=== PATIENT | female | born 1970 | race Caucasian/White ===

== ENCOUNTER 2018-06-25 16:52 | Inpatient (IN) ==
[2018-06-29] MEDS ORDERED: Acetaminophen 325 MG TABLET PO PRN (00:01)
[2018-06-29] MEDS: Furosemide 20 MG TABLET PO SCH ×2 (06:41→15:55)
[2018-06-29] MEDS: FLUoxetine 20 MG CAPSULE PO SCH (09:11)
[2018-06-29] MEDS: *HR* OxyCODONE Immed Rel 15 MG TABLET PO SCH ×3 (09:11→20:19)
[2018-06-29] MEDS: Cyanocobalamin (B-12) 1,000 MCG TABLET PO SCH (09:11)
[2018-06-29] MEDS: *HR* Metformin 500 MG TABLET PO SCH ×2 (09:12→15:53)
[2018-06-29] MEDS: Loratadine 10 MG TABLET PO SCH (09:12)
[2018-06-29] MEDS: Insulin LISPRO 300 UNITS/3 ML VIAL SQ SCH ×3 (09:12→16:14)
[2018-06-29] MEDS: *HR* Rivaroxaban 10 MG TABLET PO SCH (09:12)
[2018-06-29] MEDS: Pregabalin 75 MG CAPSULE PO SCH ×3 (09:12→20:19)
[2018-06-29] MEDS: Diltiazem CD (24hr) 240 MG CAPSULE PO SCH ×2 (09:13→20:19)
[2018-06-29] MEDS: Dulaglutide [Trulicity] 0.75 MG SQ SCH (09:15)
[2018-06-29] MEDS: Insulin DETEMIR 100 UNIT/ML X5UNITS SQ SCH ×2 (10:11→20:26)
--- NOTE | 2018-06-29 19:26 | Internal Med History&Physical ---
Date of Encounter: 06/29/18 Time of Encounter: 19:00 Assessment and Plan (1) Hematoma of right lower extremity Current visit: No Status: Acute Now status post debridement. Continue wound VAC Qualifiers: Encounter type: subsequent encounter Qualified Code(s): S80.11XD - Contusion of right lower leg, subsequent encounter (2) Anemia Current visit: Yes Status: Acute Order anemia testing in a.m. Qualifiers: Anemia type: unspecified type Qualified Code(s): D64.9 - Anemia, unspecified (3) Hypertension Current visit: Yes Status: Chronic Continue Cozaar, Lasix, and diltiazem. Qualifiers: Hypertension type: essential hypertension Qualified Code(s): I10 - Essential (primary) hypertension (4) Lower extremity edema Current visit: No Status: Chronic Continue Lasix. Check BN peptide in a.m. I told her the Lyrica is likely contributing to this. (5) DVT (deep venous thrombosis) Current visit: No Status: Acute Continue Xarelto Qualifiers: Affected thrombotic vein of extremity: unspecified vein of extremity Chronicity: chronic Laterality: bilateral Qualified Code(s): I82.503 - Chronic embolism and thrombosis of unspecified deep veins of lower extremity, bilateral Internal Medicine - H&P: HPI Chief complaint: Right leg hematoma Admitted From: Hospital to Hospital Transfer Plans for Post Hospital Care: Home History of present illness: Ms. Arredondo is a 48 year old female who was transferred to [facility] swing bed June 28 following a June 21 stay at [facility] after admission for bleeding from a right leg wound. The wound was sustained in May when she fell at a gas station and developed a right lateral calf hematoma and cellulitis. Following treatment at [facility] for one week she was discharged to a [facility] until above-referenced admission at [facility]. During her [facility] stay she was seen by ID who did not recommend further antibiotics. The wound was debrided and wound VAC was placed. She was discharged to [facility] swing bed for ongoing care needs. Past Med Surg Social Fam HX - Past Medical History Medical history: DVT, diabetes, GERD, hyperlipidemia, hypertension Additional medical history: Sleep apnea, Lymphedema, DM neuropathy, Cellulitis, Psychiatric history: anxiety, depression - Past Surgical History Surgical History: appendectomy - Social History Smoking Status: Former smoker Smokeless Tobacco Status: No Alcohol use: none Drug use: none - Family History Mother Family Member Ethnicity: Non- Living Status: Hx Family Cardiac Disorders: Yes Hx Family Respiratory Disorders: No Hx Family Cancer: No Hx Family GI Disorders: No Hx Family Endocrine Disorder: No Hx Family Neuromuscular Disorders: No Hx Family Neurologic Disorders: No Hx Family HEENT Disorders: No Hx Family Autoimmune Disorders: No Father Adopted: No Living Status: Hx Family Cardiac Disorders: Yes Hx Family Respiratory Disorders: Yes Hx Family Cancer: No Hx Family GI Disorders: No Hx Family Endocrine Disorder: Yes Hx Family Neuromuscular Disorders: No Hx Family Neurologic Disorders: No Hx Family HEENT Disorders: No Hx Family Autoimmune Disorders: No Internal Medicine - H&P: Meds Diltiazem CD (24hr) [Cardizem CD] 240 mg PO BID 07/31/15 [History] hydrOXYzine pamoate [HydrOXYzine Pamoate] 25 - 50 mg PO Q6H PRN 07/31/15 [ History] Cyanocobalamin (Vitamin B-12) [Vitamin B12] 2,500 mcg PO DAILY 03/11/17 [History ] Ferrous Sulfate 325 mg PO BIDWM 03/11/17 [History] Furosemide [Lasix] 40 mg PO BID 03/11/17 [History] Insulin Glargine,Hum.rec.anlog [Toujeo Solostar] 65 unit SQ BID 03/11/17 [ History] Melatonin 5 mg PO HS 03/11/17 [History] Metformin HCl [Fortamet] 1,000 mg PO BID 03/11/17 [History] Methocarbamol [Robaxin] 750 mg PO HS 03/11/17 [History] Dulaglutide [Trulicity] 0.75 mg SQ QWEEK 03/10/18 [History] Montelukast [Singulair] 10 mg PO HS 03/10/18 [History] Oxybutynin [Ditropan] 5 mg PO BID 03/10/18 [History] Rivaroxaban [Xarelto] 10 mg PO DAILY #30 tablet 03/10/18 [Rx] Atorvastatin [Lipitor] 40 mg PO HS 06/21/18 [History] Cetirizine HCl [All Day Allergy] 10 mg PO DAILY 06/21/18 [History] FLUoxetine HCl [Prozac] 40 mg PO DAILY 06/21/18 [History] Insulin LISPRO [HumaLOG] 50 units SQ TIDWM 06/21/18 [History] Losartan Potassium [Cozaar] 50 mg PO DAILY 06/21/18 [History] Omeprazole [PriLOSEC] 40 mg PO DAILY 06/21/18 [History] Pregabalin [Lyrica] 150 mg PO TID 06/21/18 [History] Promethazine [Phenergan] 25 mg PO Q8H PRN 06/21/18 [History] Venlafaxine HCl [Venlafaxine HCl ER] 75 mg PO Q48H 06/21/18 [History] Acetaminophen [Tylenol] 650 mg PO Q6HR PRN tablet 06/28/18 [Rx] DiphenhydraMINE [Benadryl] 25 mg PO Q6HR PRN capsule 06/28/18 [Rx] Oxycodone HCl 15 mg PO TID 2 Days #6 tablet 06/28/18 [Rx] 3 Allergy/AdvReac Type Severity Reaction Status Date / Time Penicillins Allergy Intermediate Rash Verified 03/10/18 13:13 pioglitazone [From Actos] Allergy Intermediate See Verified 03/10/18 13:13 Comments sitagliptin [From Januvia] Allergy Intermediate See Verified 03/10/18 13:13 Comments Sulfa (Sulfonamide Allergy Intermediate Hives Verified 03/10/18 13:13 Antibiotics) nabumetone Allergy Muscle Pain Verified 03/10/18 13:13 sulfamethoxazole Allergy Rash Verified 03/10/18 13:13 [From Bactrim] trimethoprim [From Bactrim] Allergy Rash Verified 03/10/18 13:13 All Systems PM: A 10-system review of systems was performed and is negative for pertinent findings except as documented above in the HPI. Review of systems: Gen.: She stated her weight has fluctuated significantly due to varying fluid retention Cardiovascular: She has history of hypertension but denies AK heart failure or angina. 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 Respiratory: She smoked from age [age]. She denies chronic lung disease. She has "allergies". GI: She denies disorders of liver gallbladder or exocrine pancreas. She has GERD. : She has overactive bladder. She denies chronic kidney disease or other kidney or bladder disorders. Neurologic: She denies large distribution strokes or seizures. She has diabetic peripheral neuropathy. Endocrine: She was diagnosed with DM 2 in 1991. She has hyperlipidemia but denies thyroid disease. Hematology/oncology: She has anemia with history of B12 deficiency. She is presently on B12 and iron supplementation. She denies internal malignancies. Psychiatric: She has anxiety and depression but denies other mental health issues. Mus[place] skeletal: She has DJD but denies gout or other bone joint or muscle disorders. - Constitutional Vitals: Temp Pulse Resp BP Pulse Ox 98.9 F 74 16 128/80 98 06/29/18 18:52 06/29/18 18:52 06/29/18 18:52 06/29/18 18:52 06/29/18 18:52 Exam: Gen.: She is a well-developed morbidly obese female in bed who appears in no acute distress HEENT: Head is atraumatic and normocephalic. Eyes: EOMI. There is no scleral icterus. Mouth: Mucosa is moist. Neck: Supple and nontender. There is no thyromegaly or adenopathy noted. Heart: Regular without murmurs gallops or ectopics Lungs: No wheezes or crackles are heard. Abdomen: She has a large abdomen. It is nontender to palpation. Extremities: She has 3-4+ edema of the dorsum of feet and legs. She has chronic lymphedema with dermal thickening and nodularity bilaterally. Wound VAC is in place in the right lateral calf area. Dorsalis pedis and posttibial pulses are nonpalpable. Neurologic: Mental status: She is talkative and a good historian. Cranial nerves: Smile is symmetric. Forehead wrinkles bilaterally. Tongue protrudes midline. EOMI. Motor: There is no pronator drift. Cerebellar: Finger to nose is intact bilaterally. Skin: Warm and dry
[2018-06-29] MEDS: Melatonin 3 MG TABLET PO SCH (20:19)
[2018-06-29] MEDS: Methocarbamol 500 MG TABLET PO SCH (20:26)
[2018-06-30 04:53] LABS: Basophils % 0.4 %; Eosinophils # 0.2 K/mcL (0.0-0.6); Eosinophils % 1.5 %; Hematocrit 27.5 % (35.3-44.9); Hemoglobin 8.8 g/dL (11.5-15.4); Immature Granulocytes % 1.1 % (0-4); Lymphocytes # 1.1 K/mcL (0.6-4.6); Lymphocytes % 11.5 %; Mean Corpuscular Hemoglobin 30.7 pg (28.0-33.3); Mean Corpuscular Volume 95.8 fL (83.0-100.0); Monocytes # 0.9 K/mcL (0.0-1.3); Monocytes % 8.9 %; Neutrophils # 7.5 K/mcL (1.6-8.9); Platelet Count 225 K/mcL (140-400); Red Blood Count 2.87 M/mcL (3.82-4.97); Red Cell Distribution Width 15.4 % (11.5-14.5); Segmented Neutrophils % 76.6 %
[2018-06-30 05:58] LABS: Potassium 4.1 mEq/L (3.5-5.1); Sodium 139 mEq/L (136-145)
[2018-06-30 05:59] LABS: BUN/Creatinine Ratio 20 (6-26); Blood Urea Nitrogen 19 mg/dL (6-20); Calcium 9.1 mg/dL (8.6-10.3); Carbon Dioxide 32 mEq/L (23-29); Chloride 100 mEq/L (98-107); Glucose 114 mg/dL (70-105); Osmolality,Calculated 291 (280-300); eGFR For Non-African Americans > 60 (> 60)
[2018-06-30] MEDS: FLUoxetine 20 MG CAPSULE PO SCH (07:48)
[2018-06-30] MEDS: *HR* OxyCODONE Immed Rel 15 MG TABLET PO SCH ×3 (07:49→19:58)
[2018-06-30] MEDS: Cyanocobalamin (B-12) 1,000 MCG TABLET PO SCH (07:49)
[2018-06-30] MEDS: *HR* Metformin 500 MG TABLET PO SCH ×2 (07:49→15:50)
[2018-06-30] MEDS: Furosemide 20 MG TABLET PO SCH ×2 (07:50→15:49)
[2018-06-30] MEDS: Pregabalin 75 MG CAPSULE PO SCH ×3 (07:50→19:57)
[2018-06-30] MEDS: Loratadine 10 MG TABLET PO SCH (07:50)
[2018-06-30] MEDS: Venlafaxine XR (24 HR) 37.5 MG CAP.ER.24H PO SCH (07:50)
[2018-06-30] MEDS: Insulin LISPRO 300 UNITS/3 ML VIAL SQ SCH ×3 (07:51→17:29)
[2018-06-30] MEDS: Diltiazem CD (24hr) 240 MG CAPSULE PO SCH ×2 (07:51→19:57)
[2018-06-30] MEDS: *HR* Rivaroxaban 10 MG TABLET PO SCH (07:51)
[2018-06-30] MEDS: Insulin DETEMIR 100 UNIT/ML X5UNITS SQ SCH ×2 (08:33→21:21)
[2018-06-30 09:49] LABS: % Iron Saturation 9 % (15-50); Iron 22 mcg/dL (50-170); Transferrin 180 mg/dL (203-362)
[2018-06-30 10:06] LABS: Ferritin 195 ng/mL (10-120)
[2018-06-30 10:11] LABS: Folate 7.7 ng/mL (3.0-16.0)
--- NOTE | 2018-06-30 16:45 | Internal Med Progress Note ---
Date of Encounter: 06/30/18 Time of Encounter: 16:38 - Assessment and plan (1) Hematoma of right lower extremity Current Visit: No Status: Acute Assessment and plan: June 30. Continue wound VAC and follow-up at [facility] wound clinic Qualifiers: Encounter type: subsequent encounter Qualified Code(s): S80.11XD - Contusion of right lower leg, subsequent encounter (2) Anemia Current Visit: Yes Status: Acute Assessment and plan: June 30. Anemia testing showed iron 22, transferrin saturation 9%, transferrin 180, ferritin 195, B12 1163, and folate 7.7. Start ferrous sulfate with ascorbic acid in a.m. Qualifiers: Anemia type: unspecified type Qualified Code(s): D64.9 - Anemia, unspecified (3) Hypertension Current Visit: Yes Status: Chronic Assessment and plan: June 30. Continue Cozaar, Lasix, and diltiazem. Qualifiers: Hypertension type: essential hypertension Qualified Code(s): I10 - Essential (primary) hypertension (4) Lower extremity edema Current Visit: No Status: Chronic Assessment and plan: June 30. BN peptide normal. I told her Lyrica was likely contributing to this. She has been on present dose for several months and did not seem interested in reducing at this time. Continue Lasix. (5) DVT (deep venous thrombosis) Current Visit: No Status: Acute Assessment and plan: June 30. Continue Xarelto Qualifiers: Affected thrombotic vein of extremity: unspecified vein of extremity Chronicity: chronic Laterality: bilateral Qualified Code(s): I82.503 - Chronic embolism and thrombosis of unspecified deep veins of lower extremity, bilateral - Subjective Interval history: June 30. She has no new complaints. - Constitutional Vitals: Temp Pulse Resp BP Pulse Ox 98.1 F 72 16 113/65 93 06/30/18 06:42 06/30/18 06:42 06/30/18 06:42 06/30/18 06:42 06/30/18 06:42 Exam: She is resting comfortably in bed and appears in no acute distress. She is not dyspneic. Her affect is bright and cheerful. I reviewed her medications and lab results. Internal Medicine: Result - Labs CBC & Chem 7: 06/30/18 04:24 06/30/18 04:24 Labs: Short CBC 06/30/18 Range/Units 04:24 WBC 9.7 (4.3-11.1) K/mcL Hgb 8.8 L (11.5-15.4) g/dL Hct 27.5 L (35.3-44.9) % Plt Count 225 (140-400) K/mcL Neutrophils # 7.5 (1.6-8.9) K/mcL BMP 06/30/18 04:24 Sodium 139 Potassium 4.1 Chloride 100 Carbon Dioxide 32 H BUN 19 Creatinine 0.94 Glucose 114 H Calcium 9.1 Consult Discharge Plan - Plan Referrals: Job Sage DO [Primary Care Provider] - 1 week
[2018-06-30] MEDS: Methocarbamol 500 MG TABLET PO SCH (19:57)
[2018-06-30] MEDS: Melatonin 3 MG TABLET PO SCH (19:57)
[2018-07-01] MEDS: Furosemide 20 MG TABLET PO SCH ×2 (06:26→16:19)
[2018-07-01] MEDS: *HR* Rivaroxaban 10 MG TABLET PO SCH (07:55)
[2018-07-01] MEDS: Diltiazem CD (24hr) 240 MG CAPSULE PO SCH ×2 (07:55→20:10)
[2018-07-01] MEDS: Loratadine 10 MG TABLET PO SCH (07:56)
[2018-07-01] MEDS: *HR* Metformin 500 MG TABLET PO SCH ×2 (07:56→16:19)
[2018-07-01] MEDS: Cyanocobalamin (B-12) 1,000 MCG TABLET PO SCH (07:56)
[2018-07-01] MEDS: *HR* OxyCODONE Immed Rel 15 MG TABLET PO SCH ×3 (07:56→20:11)
[2018-07-01] MEDS: Pregabalin 75 MG CAPSULE PO SCH ×3 (07:56→20:10)
[2018-07-01] MEDS: FLUoxetine 20 MG CAPSULE PO SCH (07:56)
[2018-07-01] MEDS: Insulin LISPRO 300 UNITS/3 ML VIAL SQ SCH ×3 (07:58→16:20)
[2018-07-01] MEDS: Insulin DETEMIR 100 UNIT/ML X5UNITS SQ SCH ×2 (08:25→20:15)
[2018-07-01] MEDS: Methocarbamol 500 MG TABLET PO SCH (20:09)
[2018-07-01] MEDS: Melatonin 3 MG TABLET PO SCH (20:10)
[2018-07-02] MEDS: *HR* OxyCODONE Immed Rel 15 MG TABLET PO SCH ×3 (07:48→23:10)
[2018-07-02] MEDS: Pregabalin 75 MG CAPSULE PO SCH ×3 (07:49→23:19)
[2018-07-02] MEDS: Diltiazem CD (24hr) 240 MG CAPSULE PO SCH ×2 (07:49→23:09)
[2018-07-02] MEDS: Venlafaxine XR (24 HR) 37.5 MG CAP.ER.24H PO SCH (07:49)
[2018-07-02] MEDS: Loratadine 10 MG TABLET PO SCH (07:49)
[2018-07-02] MEDS: FLUoxetine 20 MG CAPSULE PO SCH (07:50)
[2018-07-02] MEDS: Furosemide 20 MG TABLET PO SCH ×2 (07:50→16:16)
[2018-07-02] MEDS: *HR* Rivaroxaban 10 MG TABLET PO SCH (07:50)
[2018-07-02] MEDS: Cyanocobalamin (B-12) 1,000 MCG TABLET PO SCH (07:50)
[2018-07-02] MEDS: *HR* Metformin 500 MG TABLET PO SCH ×2 (07:50→16:17)
[2018-07-02] MEDS: Insulin LISPRO 300 UNITS/3 ML VIAL SQ SCH ×3 (07:53→16:42)
[2018-07-02] MEDS: Insulin DETEMIR 100 UNIT/ML X5UNITS SQ SCH ×2 (08:36→23:12)
--- NOTE | 2018-07-02 12:33 | Internal Med Progress Note ---
Date of Encounter: 07/02/18 Time of Encounter: 12:25 - Assessment and plan (1) Hematoma of right lower extremity Current Visit: No Status: Acute Assessment and plan: June 30. Continue wound VAC and follow-up at [facility] wound clinic Qualifiers: Encounter type: subsequent encounter Qualified Code(s): S80.11XD - Contusion of right lower leg, subsequent encounter (2) Anemia Current Visit: Yes Status: Acute Assessment and plan: June 30. Anemia testing showed iron 22, transferrin saturation 9%, transferrin 180, ferritin 195, B12 1163, and folate 7.7. Start ferrous sulfate with ascorbic acid in a.m. Qualifiers: Anemia type: unspecified type Qualified Code(s): D64.9 - Anemia, unspecified (3) Hypertension Current Visit: Yes Status: Chronic Assessment and plan: June 30. Continue Cozaar, Lasix, and diltiazem. Qualifiers: Hypertension type: essential hypertension Qualified Code(s): I10 - Essential (primary) hypertension (4) Lower extremity edema Current Visit: No Status: Chronic Assessment and plan: June 30. BN peptide normal. I told her Lyrica was likely contributing to this. She has been on present dose for several months and did not seem interested in reducing at this time. Continue Lasix. (5) DVT (deep venous thrombosis) Current Visit: No Status: Acute Assessment and plan: June 30. Continue Xarelto Qualifiers: Affected thrombotic vein of extremity: unspecified vein of extremity Chronicity: chronic Laterality: bilateral Qualified Code(s): I82.503 - Chronic embolism and thrombosis of unspecified deep veins of lower extremity, bilateral - Subjective Interval history: June 30. She has no new complaints. July 02. She has no new complaints. - Constitutional Vitals: Temp Pulse Resp BP Pulse Ox 98.3 F 71 19 107/54 98 07/02/18 06:45 07/02/18 06:45 07/02/18 06:45 07/02/18 06:45 07/02/18 06:45 Exam: She is resting comfortably in a chair at bedside and appears in no acute distress. Her affect is bright and cheerful. I reviewed her medications and lab results. Internal Medicine: Result - Labs CBC & Chem 7: 06/30/18 04:24 06/30/18 04:24 Consult Discharge Plan - Plan Referrals: Job Sage DO [Primary Care Provider] - 1 week
[2018-07-02] MEDS: Methocarbamol 500 MG TABLET PO SCH (23:06)
[2018-07-02] MEDS: hydrOXYzine pamoate 25 MG CAPSULE PO PRN (23:06)
[2018-07-02] MEDS: Melatonin 3 MG TABLET PO SCH (23:08)
[2018-07-03] MEDS: Ascorbic Acid 500 MG TABLET PO SCH (06:17)
[2018-07-03] MEDS: Cyanocobalamin (B-12) 1,000 MCG TABLET PO SCH (10:31)
[2018-07-03] MEDS: Loratadine 10 MG TABLET PO SCH (10:32)
[2018-07-03] MEDS: *HR* Rivaroxaban 10 MG TABLET PO SCH (10:32)
[2018-07-03] MEDS: Pregabalin 75 MG CAPSULE PO SCH ×3 (10:32→21:14)
[2018-07-03] MEDS: *HR* Metformin 500 MG TABLET PO SCH ×2 (10:32→17:12)
[2018-07-03] MEDS: FLUoxetine 20 MG CAPSULE PO SCH (10:33)
[2018-07-03] MEDS: *HR* OxyCODONE Immed Rel 15 MG TABLET PO SCH ×3 (10:33→21:13)
[2018-07-03] MEDS: Insulin DETEMIR 100 UNIT/ML X5UNITS SQ SCH ×2 (10:34→21:14)
[2018-07-03] MEDS: Insulin LISPRO 300 UNITS/3 ML VIAL SQ SCH ×3 (12:34→17:13)
[2018-07-03] MEDS: Diltiazem CD (24hr) 240 MG CAPSULE PO SCH ×2 (13:57→21:13)
[2018-07-03] MEDS: Furosemide 20 MG TABLET PO SCH ×2 (13:58→17:12)
[2018-07-03] MEDS: Methocarbamol 500 MG TABLET PO SCH (21:13)
[2018-07-03] MEDS: Melatonin 3 MG TABLET PO SCH (21:14)
[2018-07-04] MEDS: Ascorbic Acid 500 MG TABLET PO SCH (06:23)
[2018-07-04] MEDS: Insulin DETEMIR 100 UNIT/ML X5UNITS SQ SCH ×2 (09:31→21:20)
[2018-07-04] MEDS: *HR* OxyCODONE Immed Rel 15 MG TABLET PO SCH ×3 (09:32→21:11)
[2018-07-04] MEDS: Cyanocobalamin (B-12) 1,000 MCG TABLET PO SCH (09:32)
[2018-07-04] MEDS: *HR* Rivaroxaban 10 MG TABLET PO SCH (09:32)
[2018-07-04] MEDS: *HR* Metformin 500 MG TABLET PO SCH ×2 (09:32→17:53)
[2018-07-04] MEDS: Pregabalin 75 MG CAPSULE PO SCH ×3 (09:32→21:12)
[2018-07-04] MEDS: Loratadine 10 MG TABLET PO SCH (09:33)
[2018-07-04] MEDS: FLUoxetine 20 MG CAPSULE PO SCH (09:33)
[2018-07-04] MEDS: Venlafaxine XR (24 HR) 37.5 MG CAP.ER.24H PO SCH (09:33)
[2018-07-04] MEDS: Furosemide 20 MG TABLET PO SCH ×2 (09:33→17:53)
[2018-07-04] MEDS: Insulin LISPRO 300 UNITS/3 ML VIAL SQ SCH ×3 (09:34→17:55)
[2018-07-04] MEDS: Diltiazem CD (24hr) 240 MG CAPSULE PO SCH ×2 (11:02→21:11)
--- NOTE | 2018-07-04 12:07 | Internal Med Progress Note ---
Date of Encounter: 07/04/18 Time of Encounter: 11:40 - Assessment and plan (1) Hematoma of right lower extremity Current Visit: No Status: Acute Assessment and plan: June 30. Continue wound VAC and follow-up at [facility] wound clinic Qualifiers: Encounter type: subsequent encounter Qualified Code(s): S80.11XD - Contusion of right lower leg, subsequent encounter (2) Anemia Current Visit: Yes Status: Acute Assessment and plan: June 30. Anemia testing showed iron 22, transferrin saturation 9%, transferrin 180, ferritin 195, B12 1163, and folate 7.7. Start ferrous sulfate with ascorbic acid in a.m. Qualifiers: Anemia type: unspecified type Qualified Code(s): D64.9 - Anemia, unspecified (3) Hypertension Current Visit: Yes Status: Chronic Assessment and plan: June 30. Continue Cozaar, Lasix, and diltiazem. Qualifiers: Hypertension type: essential hypertension Qualified Code(s): I10 - Essential (primary) hypertension (4) Lower extremity edema Current Visit: No Status: Chronic Assessment and plan: June 30. BN peptide normal. I told her Lyrica was likely contributing to this. She has been on present dose for several months and did not seem interested in reducing at this time. Continue Lasix. July 04. I reminded her again that the edema is likely due at least in part to Lyrica. She declined decreasing the dose at this time. (5) DVT (deep venous thrombosis) Current Visit: No Status: Acute Assessment and plan: June 30. Continue Xarelto Qualifiers: Affected thrombotic vein of extremity: unspecified vein of extremity Chronicity: chronic Laterality: bilateral Qualified Code(s): I82.503 - Chronic embolism and thrombosis of unspecified deep veins of lower extremity, bilateral - Subjective Interval history: June 30. She has no new complaints. July 02. She has no new complaints. July 04. She has no new complaints. - Constitutional Vitals: Temp Pulse Resp BP Pulse Ox 98 F 63 14 113/66 98 07/04/18 06:42 07/04/18 06:42 07/04/18 06:42 07/04/18 06:42 07/04/18 06:42 Exam: She is resting comfortably in bed and appears in no acute distress. The wound VAC was detached and the right lateral calf ulcerative area shows good granulation bed with minimal exudate present. Edema is minimally changed. I reviewed her medications and lab results. Internal Medicine: Result - Labs CBC & Chem 7: 06/30/18 04:24 06/30/18 04:24 Consult Discharge Plan - Plan Referrals: Job Sage DO [Primary Care Provider] - 1 week
[2018-07-04] MEDS: Methocarbamol 500 MG TABLET PO SCH (21:11)
[2018-07-04] MEDS: Melatonin 3 MG TABLET PO SCH (21:12)
[2018-07-05] MEDS: Ascorbic Acid 500 MG TABLET PO SCH (06:51)
[2018-07-05] MEDS: Cyanocobalamin (B-12) 1,000 MCG TABLET PO SCH (07:55)
[2018-07-05] MEDS: *HR* Metformin 500 MG TABLET PO SCH ×2 (07:55→17:05)
[2018-07-05] MEDS: FLUoxetine 20 MG CAPSULE PO SCH (07:55)
[2018-07-05] MEDS: Furosemide 20 MG TABLET PO SCH ×2 (07:56→15:22)
[2018-07-05] MEDS: *HR* OxyCODONE Immed Rel 15 MG TABLET PO SCH ×3 (07:56→21:14)
[2018-07-05] MEDS: Loratadine 10 MG TABLET PO SCH (07:56)
[2018-07-05] MEDS: *HR* Rivaroxaban 10 MG TABLET PO SCH (07:56)
[2018-07-05] MEDS: Pregabalin 75 MG CAPSULE PO SCH ×3 (07:57→21:15)
[2018-07-05] MEDS: Insulin DETEMIR 100 UNIT/ML X5UNITS SQ SCH ×2 (07:57→21:32)
[2018-07-05] MEDS: Insulin LISPRO 300 UNITS/3 ML VIAL SQ SCH ×3 (08:00→16:31)
[2018-07-05] MEDS: Diltiazem CD (24hr) 240 MG CAPSULE PO SCH ×2 (10:00→21:16)
[2018-07-05] MEDS: Methocarbamol 500 MG TABLET PO SCH (21:15)
[2018-07-05] MEDS: Melatonin 3 MG TABLET PO SCH (21:16)
[2018-07-06] MEDS: Ascorbic Acid 500 MG TABLET PO SCH (06:00)
[2018-07-06] MEDS: Insulin LISPRO 300 UNITS/3 ML VIAL SQ SCH ×3 (08:00→16:46)
[2018-07-06] MEDS: Diltiazem CD (24hr) 240 MG CAPSULE PO SCH ×2 (08:33→21:21)
[2018-07-06] MEDS: FLUoxetine 20 MG CAPSULE PO SCH (08:53)
[2018-07-06] MEDS: Furosemide 20 MG TABLET PO SCH ×2 (08:53→16:01)
[2018-07-06] MEDS: Pregabalin 75 MG CAPSULE PO SCH ×3 (08:53→21:21)
[2018-07-06] MEDS: Venlafaxine XR (24 HR) 37.5 MG CAP.ER.24H PO SCH (08:53)
[2018-07-06] MEDS: Loratadine 10 MG TABLET PO SCH (08:53)
[2018-07-06] MEDS: *HR* OxyCODONE Immed Rel 15 MG TABLET PO SCH ×3 (08:54→21:21)
[2018-07-06] MEDS: Cyanocobalamin (B-12) 1,000 MCG TABLET PO SCH (08:54)
[2018-07-06] MEDS: *HR* Metformin 500 MG TABLET PO SCH ×2 (08:54→16:00)
[2018-07-06] MEDS: *HR* Rivaroxaban 10 MG TABLET PO SCH (08:54)
[2018-07-06] MEDS: Dulaglutide [Trulicity] 0.75 MG SQ SCH (08:55)
[2018-07-06] MEDS: Insulin DETEMIR 100 UNIT/ML X5UNITS SQ SCH ×2 (12:15→21:28)
[2018-07-06] MEDS ORDERED: MOM Conc 10 ML UD.LIQ PO PRN (14:51)
[2018-07-06] MEDS: Melatonin 3 MG TABLET PO SCH (21:22)
[2018-07-06] MEDS: Methocarbamol 500 MG TABLET PO SCH (21:22)
[2018-07-07] MEDS: Furosemide 20 MG TABLET PO SCH ×2 (06:02→16:49)
[2018-07-07] MEDS: Ascorbic Acid 500 MG TABLET PO SCH (06:02)
[2018-07-07] MEDS: Loratadine 10 MG TABLET PO SCH (09:33)
[2018-07-07] MEDS: Diltiazem CD (24hr) 240 MG CAPSULE PO SCH ×2 (09:33→20:31)
[2018-07-07] MEDS: *HR* Metformin 500 MG TABLET PO SCH ×2 (09:34→16:49)
[2018-07-07] MEDS: FLUoxetine 20 MG CAPSULE PO SCH (09:34)
[2018-07-07] MEDS: Cyanocobalamin (B-12) 1,000 MCG TABLET PO SCH (09:34)
[2018-07-07] MEDS: Pregabalin 75 MG CAPSULE PO SCH ×3 (09:35→20:31)
[2018-07-07] MEDS: *HR* OxyCODONE Immed Rel 15 MG TABLET PO SCH ×3 (09:35→20:30)
[2018-07-07] MEDS: *HR* Rivaroxaban 10 MG TABLET PO SCH (09:35)
[2018-07-07] MEDS: Insulin LISPRO 300 UNITS/3 ML VIAL SQ SCH ×3 (09:36→16:47)
[2018-07-07] MEDS: Insulin DETEMIR 100 UNIT/ML X5UNITS SQ SCH ×2 (10:02→20:35)
--- NOTE | 2018-07-07 15:58 | Internal Med Progress Note ---
Date of Encounter: 07/07/18 Time of Encounter: 15:45 - Assessment and plan (1) Hematoma of right lower extremity Current Visit: No Status: Acute Assessment and plan: June 30. Continue wound VAC and follow-up at [facility] wound clinic Qualifiers: Encounter type: subsequent encounter Qualified Code(s): S80.11XD - Contusion of right lower leg, subsequent encounter (2) Anemia Current Visit: Yes Status: Acute Assessment and plan: June 30. Anemia testing showed iron 22, transferrin saturation 9%, transferrin 180, ferritin 195, B12 1163, and folate 7.7. Start ferrous sulfate with ascorbic acid in a.m. July 07. Recheck labs in a.m. Qualifiers: Anemia type: unspecified type Qualified Code(s): D64.9 - Anemia, unspecified (3) Hypertension Current Visit: Yes Status: Chronic Assessment and plan: June 30. Continue Cozaar, Lasix, and diltiazem. Qualifiers: Hypertension type: essential hypertension Qualified Code(s): I10 - Essential (primary) hypertension (4) Lower extremity edema Current Visit: No Status: Chronic Assessment and plan: June 30. BN peptide normal. I told her Lyrica was likely contributing to this. She has been on present dose for several months and did not seem interested in reducing at this time. Continue Lasix. July 04. I reminded her again that the edema is likely due at least in part to Lyrica. She declined decreasing the dose at this time. (5) DVT (deep venous thrombosis) Current Visit: No Status: Acute Assessment and plan: June 30. Continue Xarelto Qualifiers: Affected thrombotic vein of extremity: unspecified vein of extremity Chronicity: chronic Laterality: bilateral Qualified Code(s): I82.503 - Chronic embolism and thrombosis of unspecified deep veins of lower extremity, bilateral - Subjective Interval history: June 30. She has no new complaints. July 02. She has no new complaints. July 04. She has no new complaints. July 07. She has no new complaints. - Constitutional Vitals: Temp Pulse Resp BP Pulse Ox 98.3 F 69 16 121/63 93 07/07/18 15:33 07/07/18 15:33 07/07/18 15:33 07/07/18 15:33 07/07/18 15:33 Exam: She is resting comfortably in bed and appears in no acute distress. The right lateral wound bed shows good granulation tissue with minimal exudate. There is 0 to trace edema the dorsal feet bilaterally. I reviewed her medications and lab results. Internal Medicine: Result - Labs CBC & Chem 7: 06/30/18 04:24 06/30/18 04:24 Consult Discharge Plan - Plan Referrals: Job Sage DO [Primary Care Provider] - 1 week
[2018-07-07] MEDS: Melatonin 3 MG TABLET PO SCH (20:30)
[2018-07-07] MEDS: Methocarbamol 500 MG TABLET PO SCH (20:31)
[2018-07-08 05:13] LABS: Basophils # 0.1 K/mcL (0.0-0.2); Basophils % 0.5 %; Eosinophils # 0.2 K/mcL (0.0-0.6); Eosinophils % 2.3 %; Hemoglobin 9.1 g/dL (11.5-15.4); Immature Granulocytes % 0.8 % (0-4); Lymphocytes # 1.3 K/mcL (0.6-4.6); Lymphocytes % 14.3 %; Mean Corpuscular HGB Conc 31.4 g/dL (31.6-35.5); Mean Corpuscular Hemoglobin 29.9 pg (28.0-33.3); Mean Corpuscular Volume 95.4 fL (83.0-100.0); Mean Platelet Volume 10.6 fL (9.4-12.4); Monocytes # 0.8 K/mcL (0.0-1.3); Monocytes % 8.6 %; Neutrophils # 6.8 K/mcL (1.6-8.9); Platelet Count 226 K/mcL (140-400); Red Blood Count 3.04 M/mcL (3.82-4.97); Red Cell Distribution Width 14.9 % (11.5-14.5); Segmented Neutrophils % 73.5 %
[2018-07-08 05:30] LABS: Alanine Aminotransferase 9 Units/L (7-52); Albumin 3.2 g/dL (3.5-5.7); Albumin/Globulin Ratio 1.1 (1.1-2.2); Alkaline Phosphatase 59 Units/L (34-104); Aspartate Amino Transferase 10 Units/L (13-39); BUN/Creatinine Ratio 20 (6-26); Bilirubin,Total 0.3 mg/dL (0.3-1.0); Blood Urea Nitrogen 15 mg/dL (6-20); Calcium 8.9 mg/dL (8.6-10.3); Carbon Dioxide 33 mEq/L (23-29); Chloride 100 mEq/L (98-107); Globulin 2.9 g/dL (2.4-3.5); Glucose 114 mg/dL (70-105); Osmolality,Calculated 288 (280-300); Potassium 3.6 mEq/L (3.5-5.1); Sodium 138 mEq/L (136-145); Total Protein 6.1 g/dL (6.4-8.9); eGFR For Non-African Americans > 60 (> 60)
[2018-07-08] MEDS: Ascorbic Acid 500 MG TABLET PO SCH (06:43)
[2018-07-08] MEDS: Venlafaxine XR (24 HR) 37.5 MG CAP.ER.24H PO SCH (07:58)
[2018-07-08] MEDS: *HR* Metformin 500 MG TABLET PO SCH ×2 (07:58→17:01)
[2018-07-08] MEDS: Cyanocobalamin (B-12) 1,000 MCG TABLET PO SCH (07:58)
[2018-07-08] MEDS: Furosemide 20 MG TABLET PO SCH ×2 (07:59→17:00)
[2018-07-08] MEDS: *HR* OxyCODONE Immed Rel 15 MG TABLET PO SCH ×3 (07:59→22:48)
[2018-07-08] MEDS: Pregabalin 75 MG CAPSULE PO SCH ×3 (07:59→20:31)
[2018-07-08] MEDS: Diltiazem CD (24hr) 240 MG CAPSULE PO SCH ×2 (08:00→20:31)
[2018-07-08] MEDS: FLUoxetine 20 MG CAPSULE PO SCH (08:00)
[2018-07-08] MEDS: *HR* Rivaroxaban 10 MG TABLET PO SCH (08:00)
[2018-07-08] MEDS: Loratadine 10 MG TABLET PO SCH (08:00)
[2018-07-08] MEDS: Insulin LISPRO 300 UNITS/3 ML VIAL SQ SCH ×3 (08:01→17:01)
[2018-07-08] MEDS: Insulin DETEMIR 100 UNIT/ML X5UNITS SQ SCH ×3 (08:13→21:49)
[2018-07-08] MEDS: Melatonin 3 MG TABLET PO SCH (20:31)
[2018-07-08] MEDS: Methocarbamol 500 MG TABLET PO SCH (20:31)
[2018-07-09] MEDS: Ascorbic Acid 500 MG TABLET PO SCH (06:28)
[2018-07-09] MEDS: Insulin DETEMIR 100 UNIT/ML X5UNITS SQ SCH ×2 (09:28→21:44)
[2018-07-09] MEDS: FLUoxetine 20 MG CAPSULE PO SCH (09:28)
[2018-07-09] MEDS: Insulin LISPRO 300 UNITS/3 ML VIAL SQ SCH ×3 (09:28→17:36)
[2018-07-09] MEDS: Loratadine 10 MG TABLET PO SCH (09:28)
[2018-07-09] MEDS: *HR* Rivaroxaban 10 MG TABLET PO SCH (09:28)
[2018-07-09] MEDS: Furosemide 20 MG TABLET PO SCH ×2 (09:29→17:35)
[2018-07-09] MEDS: *HR* Metformin 500 MG TABLET PO SCH ×2 (09:29→17:35)
[2018-07-09] MEDS: Diltiazem CD (24hr) 240 MG CAPSULE PO SCH ×2 (09:29→21:42)
[2018-07-09] MEDS: Cyanocobalamin (B-12) 1,000 MCG TABLET PO SCH (09:29)
[2018-07-09] MEDS: Pregabalin 75 MG CAPSULE PO SCH ×3 (09:29→21:43)
[2018-07-09] MEDS: *HR* OxyCODONE Immed Rel 15 MG TABLET PO SCH ×3 (09:29→21:41)
--- NOTE | 2018-07-09 14:31 | Internal Med Progress Note ---
Date of Encounter: 07/09/18 Time of Encounter: 14:25 - Assessment and plan (1) Hematoma of right lower extremity Current Visit: No Status: Acute Assessment and plan: June 30. Continue wound VAC and follow-up at [facility] wound clinic July 09. Wound clinic appointment July 15. Qualifiers: Encounter type: subsequent encounter Qualified Code(s): S80.11XD - Contusion of right lower leg, subsequent encounter (2) Anemia Current Visit: Yes Status: Acute Assessment and plan: June 30. Anemia testing showed iron 22, transferrin saturation 9%, transferrin 180, ferritin 195, B12 1163, and folate 7.7. Start ferrous sulfate with ascorbic acid in a.m. July 07. Recheck labs in a.m. July 09. Hemoglobin stable at 9.1. Qualifiers: Anemia type: unspecified type Qualified Code(s): D64.9 - Anemia, unspecified (3) Hypertension Current Visit: Yes Status: Chronic Assessment and plan: June 30. Continue Cozaar, Lasix, and diltiazem. Qualifiers: Hypertension type: essential hypertension Qualified Code(s): I10 - Essential (primary) hypertension (4) Lower extremity edema Current Visit: No Status: Chronic Assessment and plan: June 30. BN peptide normal. I told her Lyrica was likely contributing to this. She has been on present dose for several months and did not seem interested in reducing at this time. Continue Lasix. July 04. I reminded her again that the edema is likely due at least in part to Lyrica. She declined decreasing the dose at this time. (5) DVT (deep venous thrombosis) Current Visit: No Status: Acute Assessment and plan: June 30. Continue Xarelto Qualifiers: Affected thrombotic vein of extremity: unspecified vein of extremity Chronicity: chronic Laterality: bilateral Qualified Code(s): I82.503 - Chronic embolism and thrombosis of unspecified deep veins of lower extremity, bilateral - Subjective Interval history: June 30. She has no new complaints. July 02. She has no new complaints. July 04. She has no new complaints. July 07. She has no new complaints. July 08. She has no new complaints. - Constitutional Vitals: Temp Pulse Resp BP Pulse Ox 97.7 F 83 14 107/58 94 07/09/18 06:52 07/09/18 06:52 07/09/18 06:52 07/09/18 06:52 07/09/18 06:52 Exam: She is sitting in a chair at bedside resting comfortably. Her right lower leg is wrapped in elastic wrap which I did not remove. Her affect is bright and cheerful. I reviewed her medications and lab results. Internal Medicine: Result - Labs CBC & Chem 7: 07/08/18 04:57 07/08/18 04:57 Consult Discharge Plan - Plan Referrals: Job Sage DO [Primary Care Provider] - 1 week
[2018-07-09] MEDS: Methocarbamol 500 MG TABLET PO SCH (21:42)
[2018-07-09] MEDS: Melatonin 3 MG TABLET PO SCH (21:43)
[2018-07-10] MEDS: Ascorbic Acid 500 MG TABLET PO SCH (06:37)
[2018-07-10] MEDS: *HR* Rivaroxaban 10 MG TABLET PO SCH (07:48)
[2018-07-10] MEDS: Loratadine 10 MG TABLET PO SCH (07:48)
[2018-07-10] MEDS: FLUoxetine 20 MG CAPSULE PO SCH (07:48)
[2018-07-10] MEDS: *HR* OxyCODONE Immed Rel 15 MG TABLET PO SCH ×3 (07:48→20:53)
[2018-07-10] MEDS: Diltiazem CD (24hr) 240 MG CAPSULE PO SCH ×2 (07:49→22:05)
[2018-07-10] MEDS: Furosemide 20 MG TABLET PO SCH ×2 (07:49→16:43)
[2018-07-10] MEDS: *HR* Metformin 500 MG TABLET PO SCH ×2 (07:49→16:43)
[2018-07-10] MEDS: Venlafaxine XR (24 HR) 37.5 MG CAP.ER.24H PO SCH (07:49)
[2018-07-10] MEDS: Pregabalin 75 MG CAPSULE PO SCH ×3 (07:49→20:54)
[2018-07-10] MEDS: Cyanocobalamin (B-12) 1,000 MCG TABLET PO SCH (07:50)
[2018-07-10] MEDS: Insulin LISPRO 300 UNITS/3 ML VIAL SQ SCH ×3 (07:52→16:44)
[2018-07-10] MEDS: Insulin DETEMIR 100 UNIT/ML X5UNITS SQ SCH ×2 (08:41→21:19)
[2018-07-10] MEDS: hydrOXYzine pamoate 25 MG CAPSULE PO PRN ×2 (10:35→20:54)
[2018-07-10] MEDS: Melatonin 3 MG TABLET PO SCH (20:52)
[2018-07-10] MEDS: Methocarbamol 500 MG TABLET PO SCH (20:54)
[2018-07-11] MEDS: Ascorbic Acid 500 MG TABLET PO SCH (06:38)
[2018-07-11] MEDS: *HR* OxyCODONE Immed Rel 15 MG TABLET PO SCH ×3 (08:01→21:07)
[2018-07-11] MEDS: hydrOXYzine pamoate 25 MG CAPSULE PO PRN ×2 (08:01→21:07)
[2018-07-11] MEDS: Diltiazem CD (24hr) 240 MG CAPSULE PO SCH ×2 (08:01→21:07)
[2018-07-11] MEDS: Loratadine 10 MG TABLET PO SCH (08:01)
[2018-07-11] MEDS: Furosemide 20 MG TABLET PO SCH ×2 (08:02→16:24)
[2018-07-11] MEDS: *HR* Rivaroxaban 10 MG TABLET PO SCH (08:02)
[2018-07-11] MEDS: Pregabalin 75 MG CAPSULE PO SCH ×3 (08:02→21:07)
[2018-07-11] MEDS: FLUoxetine 20 MG CAPSULE PO SCH (08:03)
[2018-07-11] MEDS: Insulin DETEMIR 100 UNIT/ML X5UNITS SQ SCH ×2 (09:03→21:08)
[2018-07-11] MEDS: Insulin LISPRO 300 UNITS/3 ML VIAL SQ SCH ×3 (10:48→17:30)
[2018-07-11] MEDS: Cyanocobalamin (B-12) 1,000 MCG TABLET PO SCH (10:49)
[2018-07-11] MEDS: *HR* Metformin 500 MG TABLET PO SCH ×2 (10:49→16:23)
[2018-07-11] MEDS: Melatonin 3 MG TABLET PO SCH (21:06)
[2018-07-11] MEDS: Methocarbamol 500 MG TABLET PO SCH (21:06)
[2018-07-12] MEDS: Furosemide 20 MG TABLET PO SCH ×2 (06:09→15:48)
[2018-07-12] MEDS: Ascorbic Acid 500 MG TABLET PO SCH (06:10)
[2018-07-12] MEDS: Cyanocobalamin (B-12) 1,000 MCG TABLET PO SCH (09:20)
[2018-07-12] MEDS: Pregabalin 75 MG CAPSULE PO SCH ×3 (09:22→20:08)
[2018-07-12] MEDS: Venlafaxine XR (24 HR) 37.5 MG CAP.ER.24H PO SCH (09:22)
[2018-07-12] MEDS: *HR* OxyCODONE Immed Rel 15 MG TABLET PO SCH ×3 (09:23→20:09)
[2018-07-12] MEDS: *HR* Metformin 500 MG TABLET PO SCH ×2 (09:23→16:26)
[2018-07-12] MEDS: *HR* Rivaroxaban 10 MG TABLET PO SCH (09:23)
[2018-07-12] MEDS: Diltiazem CD (24hr) 240 MG CAPSULE PO SCH ×2 (09:25→20:08)
[2018-07-12] MEDS: Loratadine 10 MG TABLET PO SCH (09:25)
[2018-07-12] MEDS: FLUoxetine 20 MG CAPSULE PO SCH (09:27)
[2018-07-12] MEDS: Insulin DETEMIR 100 UNIT/ML X5UNITS SQ SCH ×2 (09:51→20:10)
[2018-07-12] MEDS: Insulin LISPRO 300 UNITS/3 ML VIAL SQ SCH ×3 (09:54→16:28)
[2018-07-12] MEDS: hydrOXYzine pamoate 25 MG CAPSULE PO PRN (15:48)
[2018-07-12] MEDS: Methocarbamol 500 MG TABLET PO SCH (20:09)
[2018-07-12] MEDS: Melatonin 3 MG TABLET PO SCH (20:09)
[2018-07-13] MEDS: Ascorbic Acid 500 MG TABLET PO SCH (06:29)
[2018-07-13] MEDS: Loratadine 10 MG TABLET PO SCH (09:00)
[2018-07-13] MEDS: Diltiazem CD (24hr) 240 MG CAPSULE PO SCH ×2 (09:00→20:56)
[2018-07-13] MEDS: FLUoxetine 20 MG CAPSULE PO SCH (09:00)
[2018-07-13] MEDS: *HR* Metformin 500 MG TABLET PO SCH ×2 (09:00→17:25)
[2018-07-13] MEDS: hydrOXYzine pamoate 25 MG CAPSULE PO PRN ×3 (09:01→20:55)
[2018-07-13] MEDS: Cyanocobalamin (B-12) 1,000 MCG TABLET PO SCH (09:01)
[2018-07-13] MEDS: *HR* Rivaroxaban 10 MG TABLET PO SCH (09:01)
[2018-07-13] MEDS: Pregabalin 75 MG CAPSULE PO SCH ×3 (09:01→20:57)
[2018-07-13] MEDS: Furosemide 20 MG TABLET PO SCH ×2 (09:01→17:26)
[2018-07-13] MEDS: Insulin LISPRO 300 UNITS/3 ML VIAL SQ SCH ×3 (09:02→17:26)
[2018-07-13] MEDS: *HR* OxyCODONE Immed Rel 15 MG TABLET PO SCH ×3 (09:02→20:56)
[2018-07-13] MEDS: Dulaglutide [Trulicity] 0.75 MG SQ SCH (09:02)
[2018-07-13] MEDS: Insulin DETEMIR 100 UNIT/ML X5UNITS SQ SCH ×2 (09:52→20:57)
--- NOTE | 2018-07-13 19:12 | Internal Med Progress Note ---
Date of Encounter: 07/13/18 Time of Encounter: 19:05 - Assessment and plan (1) Hematoma of right lower extremity Current Visit: No Status: Acute Assessment and plan: June 30. Continue wound VAC and follow-up at [facility] wound clinic July 09. Wound clinic appointment July 15. Qualifiers: Encounter type: subsequent encounter Qualified Code(s): S80.11XD - Contusion of right lower leg, subsequent encounter (2) Anemia Current Visit: Yes Status: Acute Assessment and plan: June 30. Anemia testing showed iron 22, transferrin saturation 9%, transferrin 180, ferritin 195, B12 1163, and folate 7.7. Start ferrous sulfate with ascorbic acid in a.m. July 07. Recheck labs in a.m. July 09. Hemoglobin stable at 9.1. Qualifiers: Anemia type: unspecified type Qualified Code(s): D64.9 - Anemia, unspecified (3) Hypertension Current Visit: Yes Status: Chronic Assessment and plan: June 30. Continue Cozaar, Lasix, and diltiazem. Qualifiers: Hypertension type: essential hypertension Qualified Code(s): I10 - Essential (primary) hypertension (4) Lower extremity edema Current Visit: No Status: Chronic Assessment and plan: June 30. BN peptide normal. I told her Lyrica was likely contributing to this. She has been on present dose for several months and did not seem interested in reducing at this time. Continue Lasix. July 04. I reminded her again that the edema is likely due at least in part to Lyrica. She declined decreasing the dose at this time. (5) DVT (deep venous thrombosis) Current Visit: No Status: Acute Assessment and plan: June 30. Continue Xarelto Qualifiers: Affected thrombotic vein of extremity: unspecified vein of extremity Chronicity: chronic Laterality: bilateral Qualified Code(s): I82.503 - Chronic embolism and thrombosis of unspecified deep veins of lower extremity, bilateral - Subjective Interval history: June 30. She has no new complaints. July 02. She has no new complaints. July 04. She has no new complaints. July 07. She has no new complaints. July 08. She has no new complaints. July 13. She has no new complaints. - Constitutional Vitals: Temp Pulse Resp BP Pulse Ox 98.8 F 78 17 128/61 98 07/13/18 06:47 07/13/18 06:47 07/13/18 06:47 07/13/18 06:47 07/13/18 06:47 Exam: She is resting comfortably in bed and appears in no acute distress. Her right lower leg is wrapped in gauze and elastic wrap. Reviewed her medications, lab results, and vital signs. Internal Medicine: Result - Labs CBC & Chem 7: 07/08/18 04:57 07/08/18 04:57 Consult Discharge Plan - Plan Referrals: Job Sage DO [Primary Care Provider] - 1 week
[2018-07-13] MEDS: Methocarbamol 500 MG TABLET PO SCH (20:56)
[2018-07-13] MEDS: Melatonin 3 MG TABLET PO SCH (20:57)
[2018-07-14] MEDS: Ascorbic Acid 500 MG TABLET PO SCH (06:55)
[2018-07-14] MEDS: Cyanocobalamin (B-12) 1,000 MCG TABLET PO SCH (08:11)
[2018-07-14] MEDS: *HR* Rivaroxaban 10 MG TABLET PO SCH (08:12)
[2018-07-14] MEDS: Loratadine 10 MG TABLET PO SCH (08:12)
[2018-07-14] MEDS: Diltiazem CD (24hr) 240 MG CAPSULE PO SCH ×2 (08:12→20:30)
[2018-07-14] MEDS: *HR* OxyCODONE Immed Rel 15 MG TABLET PO SCH ×3 (08:12→21:48)
[2018-07-14] MEDS: Venlafaxine XR (24 HR) 37.5 MG CAP.ER.24H PO SCH (08:12)
[2018-07-14] MEDS: Pregabalin 75 MG CAPSULE PO SCH ×3 (08:12→20:30)
[2018-07-14] MEDS: Furosemide 20 MG TABLET PO SCH ×2 (08:13→16:28)
[2018-07-14] MEDS: *HR* Metformin 500 MG TABLET PO SCH ×2 (08:14→16:28)
[2018-07-14] MEDS: hydrOXYzine pamoate 25 MG CAPSULE PO PRN ×3 (08:14→21:48)
[2018-07-14] MEDS: FLUoxetine 20 MG CAPSULE PO SCH (08:14)
[2018-07-14] MEDS: Insulin LISPRO 300 UNITS/3 ML VIAL SQ SCH ×3 (08:15→16:29)
[2018-07-14] MEDS: Insulin DETEMIR 100 UNIT/ML X5UNITS SQ SCH ×2 (08:15→20:30)
[2018-07-14] MEDS: Methocarbamol 500 MG TABLET PO SCH (20:30)
[2018-07-14] MEDS: Melatonin 3 MG TABLET PO SCH (20:30)
[2018-07-15] MEDS: *HR* Rivaroxaban 10 MG TABLET PO SCH (07:06)
[2018-07-15] MEDS: Diltiazem CD (24hr) 240 MG CAPSULE PO SCH ×2 (07:06→21:16)
[2018-07-15] MEDS: *HR* OxyCODONE Immed Rel 15 MG TABLET PO SCH ×3 (07:06→21:16)
[2018-07-15] MEDS: *HR* Metformin 500 MG TABLET PO SCH ×2 (07:06→16:56)
[2018-07-15] MEDS: Ascorbic Acid 500 MG TABLET PO SCH (07:07)
[2018-07-15] MEDS: Cyanocobalamin (B-12) 1,000 MCG TABLET PO SCH (07:07)
[2018-07-15] MEDS: Venlafaxine XR (24 HR) 37.5 MG CAP.ER.24H PO SCH (07:07)
[2018-07-15] MEDS: Loratadine 10 MG TABLET PO SCH (07:07)
[2018-07-15] MEDS: FLUoxetine 20 MG CAPSULE PO SCH (07:07)
[2018-07-15] MEDS: Pregabalin 75 MG CAPSULE PO SCH ×3 (07:08→21:15)
[2018-07-15] MEDS: Furosemide 20 MG TABLET PO SCH ×2 (07:08→16:56)
[2018-07-15] MEDS ORDERED: Insulin DETEMIR 100 UNIT/ML per UNIT SQ ONE (07:19)
[2018-07-15] MEDS: Insulin DETEMIR 100 UNIT/ML X5UNITS SQ SCH ×2 (07:22→21:20)
[2018-07-15] MEDS: Insulin LISPRO 300 UNITS/3 ML VIAL SQ SCH ×3 (08:18→16:56)
[2018-07-15] MEDS: hydrOXYzine pamoate 25 MG CAPSULE PO PRN (16:56)
[2018-07-15] MEDS: Methocarbamol 500 MG TABLET PO SCH (21:17)
[2018-07-15] MEDS: Melatonin 3 MG TABLET PO SCH (21:17)
[2018-07-16] MEDS: Ascorbic Acid 500 MG TABLET PO SCH (06:23)
[2018-07-16] MEDS: *HR* Metformin 500 MG TABLET PO SCH ×2 (07:37→16:11)
[2018-07-16] MEDS: Furosemide 20 MG TABLET PO SCH ×2 (07:38→15:39)
[2018-07-16] MEDS: Insulin LISPRO 300 UNITS/3 ML VIAL SQ SCH ×4 (07:38→16:15)
[2018-07-16] MEDS: Loratadine 10 MG TABLET PO SCH (08:39)
[2018-07-16] MEDS: Diltiazem CD (24hr) 240 MG CAPSULE PO SCH ×2 (08:39→20:39)
[2018-07-16] MEDS: Cyanocobalamin (B-12) 1,000 MCG TABLET PO SCH (08:40)
[2018-07-16] MEDS: *HR* Rivaroxaban 10 MG TABLET PO SCH (08:40)
[2018-07-16] MEDS: *HR* OxyCODONE Immed Rel 15 MG TABLET PO SCH ×3 (08:40→20:38)
[2018-07-16] MEDS: FLUoxetine 20 MG CAPSULE PO SCH (08:41)
[2018-07-16] MEDS: Pregabalin 75 MG CAPSULE PO SCH ×3 (08:41→20:39)
[2018-07-16] MEDS: Insulin DETEMIR 100 UNIT/ML X5UNITS SQ SCH ×2 (08:42→20:40)
[2018-07-16] MEDS: hydrOXYzine pamoate 25 MG CAPSULE PO PRN ×2 (10:53→20:38)
[2018-07-16] MEDS: Methocarbamol 500 MG TABLET PO SCH (20:39)
[2018-07-16] MEDS: Melatonin 3 MG TABLET PO SCH (20:39)
[2018-07-17 06:20] VITALS: BP 125/69
[2018-07-17] MEDS: Ascorbic Acid 500 MG TABLET PO SCH (06:23)
[2018-07-17] MEDS: Cyanocobalamin (B-12) 1,000 MCG TABLET PO SCH (08:06)
[2018-07-17] MEDS: *HR* OxyCODONE Immed Rel 15 MG TABLET PO SCH (08:07)
[2018-07-17] MEDS: Pregabalin 75 MG CAPSULE PO SCH (08:07)
[2018-07-17] MEDS: Furosemide 20 MG TABLET PO SCH (08:07)
[2018-07-17] MEDS: FLUoxetine 20 MG CAPSULE PO SCH (08:08)
[2018-07-17] MEDS: Loratadine 10 MG TABLET PO SCH (08:08)
[2018-07-17] MEDS: *HR* Rivaroxaban 10 MG TABLET PO SCH (08:08)
[2018-07-17] MEDS: Diltiazem CD (24hr) 240 MG CAPSULE PO SCH (08:08)
[2018-07-17] MEDS: *HR* Metformin 500 MG TABLET PO SCH (08:08)
[2018-07-17] MEDS: Insulin DETEMIR 100 UNIT/ML X5UNITS SQ SCH (08:13)
[2018-07-17] MEDS: Insulin LISPRO 300 UNITS/3 ML VIAL SQ SCH (08:14)
--- NOTE | 2018-07-17 08:51 | Discharge Summary ---
Date of Encounter: 07/17/18 Time of Encounter: 08:40 - Discharge Diagnosis (1) Hematoma of right lower extremity Priority: Primary Status: Acute Qualifiers: Encounter type: subsequent encounter Qualified Code(s): S80.11XD - Contusion of right lower leg, subsequent encounter (2) Anemia Priority: Secondary Status: Acute Qualifiers: Anemia type: unspecified type Qualified Code(s): D64.9 - Anemia, unspecified (3) Hypertension Priority: Secondary Status: Chronic Qualifiers: Hypertension type: essential hypertension Qualified Code(s): I10 - Essential (primary) hypertension (4) Lower extremity edema Priority: Secondary Status: Chronic (5) DVT (deep venous thrombosis) Priority: Secondary Status: Acute Qualifiers: Affected thrombotic vein of extremity: unspecified vein of extremity Chronicity: chronic Laterality: bilateral Qualified Code(s): I82.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 Arredondo is a 48 year old female who was transferred to [facility] swing bed June 28 following a June 21 stay at [facility] after admission for bleeding from a right leg wound. The wound was sustained in May when she fell at a gas station and developed a right lateral calf hematoma and cellulitis. Following treatment at [facility] for one week she was discharged to a [facility] until above-referenced admission at [facility]. During her [facility] stay she was seen by ID who did not recommend further antibiotics. The wound was debrided and wound VAC was placed. She was discharged to [facility] swing bed for ongoing care needs. Initial orders were written by the discharging physicians at [facility]. I saw her June 29 and performed a swing bed history and physical. She continued wound VAC therapy and made satisfactory progress. Social service was able to obtain a home wound VAC and she was stable for discharge on July 17. Anemia testing showed iron 22, transferrin saturation 9%, transferrin 180, ferritin 195, B12 1163 (high), and folate 7.7. Supplemental B12 was discontinued. She will continue ferrous sulfate with vitamin C at discharge. Her lower extremity edema showed minimal improvement during hospital stay. I told her I felt the high-dose of Lyrica was likely contributing to this but she did not seem inclined to decrease the dose. On July 17 arrangements were complete for her to be discharged home. She will follow with her PCP Dr. Job Sage within 1 week. Home health services will be ordered. - Time Spent with Patient Total time spent providing and/or coordinating discharge services: - Discharge Medications Home Medications: Diltiazem CD (24hr) [Cardizem CD] 240 mg PO BID 07/31/15 [History] hydrOXYzine pamoate [HydrOXYzine Pamoate] 25 - 50 mg PO Q6H PRN 07/31/15 [ History] Ferrous Sulfate 325 mg PO BIDWM 03/11/17 [History] Furosemide [Lasix] 40 mg PO BID 03/11/17 [History] Insulin Glargine,Hum.rec.anlog [Toujeo Solostar] 65 unit SQ BID 03/11/17 [ History] Melatonin 5 mg PO HS 03/11/17 [History] Metformin HCl [Fortamet] 1,000 mg PO BID 03/11/17 [History] Methocarbamol [Robaxin] 750 mg PO HS 03/11/17 [History] Dulaglutide [Trulicity] 0.75 mg SQ QWEEK 03/10/18 [History] Montelukast [Singulair] 10 mg PO HS 03/10/18 [History] Oxybutynin [Ditropan] 5 mg PO BID 03/10/18 [History] Rivaroxaban [Xarelto] 10 mg PO DAILY #30 tablet 03/10/18 [Rx] Atorvastatin [Lipitor] 40 mg PO HS 06/21/18 [History] FLUoxetine HCl [Prozac] 40 mg PO DAILY 06/21/18 [History] Insulin LISPRO [HumaLOG] 50 units SQ TIDWM 06/21/18 [History] Losartan Potassium [Cozaar] 50 mg PO DAILY 06/21/18 [History] Omeprazole [PriLOSEC] 40 mg PO DAILY 06/21/18 [History] Pregabalin [Lyrica] 150 mg PO TID 06/21/18 [History] Promethazine [Phenergan] 25 mg PO Q8H PRN 06/21/18 [History] Venlafaxine HCl [Venlafaxine HCl ER] 75 mg PO Q48H 06/21/18 [History] Acetaminophen [Tylenol] 650 mg PO Q6HR PRN tablet 06/28/18 [Rx] DiphenhydraMINE [Benadryl] 25 mg PO Q6HR PRN capsule 06/28/18 [Rx] Oxycodone HCl 15 mg PO TID 2 Days #6 tablet 06/28/18 [Rx] Allergies/Adverse Reactions: 3 Allergy/AdvReac Type Severity Reaction Status Date / Time Penicillins Allergy Intermediate Rash Verified 03/10/18 13:13 pioglitazone [From Actos] Allergy Intermediate See Verified 03/10/18 13:13 Comments sitagliptin [From Januvia] Allergy Intermediate See Verified 03/10/18 13:13 Comments Sulfa (Sulfonamide Allergy Intermediate Hives Verified 03/10/18 13:13 Antibiotics) nabumetone Allergy Muscle Pain Verified 03/10/18 13:13 sulfamethoxazole Allergy Rash Verified 03/10/18 13:13 [From Bactrim] trimethoprim [From Bactrim] Allergy Rash Verified 03/10/18 13:13 Date of admission: 06/28/18 23:14 Primary care physician: Job Sage DO Consults: 06/28/18 23:34 Consult to Physical Therapy [CONS] Routine Comment: Evaluate, develop and implement POC Reason for Consult: therapy Does patient have active BEDREST order?: No Is patient medically & hemodynamically stable?: Yes 06/28/18 23:35 Consult to Occupational Therapy [CONS] Routine Comment: Evaluate, develop and implement POC Reason for Consult: therapy Does patient have active BEDREST order?: No Is patient medically & hemodynamically stable?: Yes 06/29/18 00:33 Consult to Millinery Copyist [CONS] Routine Reason for SW Consult: Patient on O2 in the hospital, denies having home O2 provider - Constitutional Vitals: Temp Pulse Resp BP Pulse Ox 98.3 F 78 17 125/69 91 07/17/18 06:19 07/17/18 06:19 07/17/18 06:19 07/17/18 06:19 07/17/18 06:19 - Patient Status Disposition: Home Health Service - Discharge Instructions Follow Up With: Job Sage DO [Primary Care Provider] - 1 week - Diet and Activity Activity: as per physical therapy Diet: advance to your usual diet
--- NOTE | 2018-07-17 08:58 | Physician Discharge Referral ---
Home Health/Hosp Referral Info Transfer to: Home Health Attending Provider: Ramiro Provider in Charge Post Discharge: PCP (Job Sage D.O.) - Diagnosis (1) Hematoma of right lower extremity Priority: Primary Status: Acute (2) Anemia Priority: Secondary Status: Acute (3) Hypertension Priority: Secondary Status: Chronic (4) Lower extremity edema Priority: Secondary Status: Chronic (5) DVT (deep venous thrombosis) Priority: Secondary Status: Acute - Respiratory Orders Smoking Cessation: Smoking cessation has been advised. For more information, call the [place] Tobacco Quit Line at 2-896-KCPU-NOW. - Dressing/Wound Care Type of Dressing/Treatments w/Frequency: Home health nurse to monitor right lateral calf wound VAC - Diet/Nutrition Diet/Nutrition Orders: Cardiac, No Concentrated Sweets - Activity Activity Orders: Ambulate - Services Needed Following services are medically necessary services: Nursing, Home Health Aide, Physical Therapy, Occupational Therapy - Transfer Medications Home Medications: Diltiazem CD (24hr) [Cardizem CD] 240 mg PO BID 07/31/15 [History] hydrOXYzine pamoate [HydrOXYzine Pamoate] 25 - 50 mg PO Q6H PRN 07/31/15 [ History] Ferrous Sulfate 325 mg PO BIDWM 03/11/17 [History] Furosemide [Lasix] 40 mg PO BID 03/11/17 [History] Insulin Glargine,Hum.rec.anlog [Sha Antonio] 65 unit SQ BID 03/11/17 [ History] Melatonin 5 mg PO HS 03/11/17 [History] Metformin HCl [Fortamet] 1,000 mg PO BID 03/11/17 [History] Methocarbamol [Robaxin] 750 mg PO HS 03/11/17 [History] Dulaglutide [Trulicity] 0.75 mg SQ QWEEK 03/10/18 [History] Montelukast [Singulair] 10 mg PO HS 03/10/18 [History] Oxybutynin [Ditropan] 5 mg PO BID 03/10/18 [History] Rivaroxaban [Xarelto] 10 mg PO DAILY #30 tablet 03/10/18 [Rx] Atorvastatin [Lipitor] 40 mg PO HS 06/21/18 [History] FLUoxetine HCl [Prozac] 40 mg PO DAILY 06/21/18 [History] Insulin LISPRO [HumaLOG] 50 units SQ TIDWM 06/21/18 [History] Losartan Potassium [Cozaar] 50 mg PO DAILY 06/21/18 [History] Omeprazole [PriLOSEC] 40 mg PO DAILY 06/21/18 [History] Pregabalin [Lyrica] 150 mg PO TID 06/21/18 [History] Promethazine [Phenergan] 25 mg PO Q8H PRN 06/21/18 [History] Venlafaxine HCl [Venlafaxine HCl ER] 75 mg PO Q48H 06/21/18 [History] Acetaminophen [Tylenol] 650 mg PO Q6HR PRN tablet 06/28/18 [Rx] DiphenhydraMINE [Benadryl] 25 mg PO Q6HR PRN capsule 06/28/18 [Rx] Oxycodone HCl 15 mg PO TID 2 Days #6 tablet 06/28/18 [Rx] Allergies/Adverse Reactions: 3 Allergy/AdvReac Type Severity Reaction Status Date / Time Penicillins Allergy Intermediate Rash Verified 03/10/18 13:13 pioglitazone [From Actos] Allergy Intermediate See Verified 03/10/18 13:13 Comments sitagliptin [From Januvia] Allergy Intermediate See Verified 03/10/18 13:13 Comments Sulfa (Sulfonamide Allergy Intermediate Hives Verified 03/10/18 13:13 Antibiotics) nabumetone Allergy Muscle Pain Verified 03/10/18 13:13 sulfamethoxazole Allergy Rash Verified 03/10/18 13:13 [From Bactrim] trimethoprim [From Bactrim] Allergy Rash Verified 03/10/18 13:13 Certification: Further, I certify that my clinical findings support that this patient is homebound (i.e. absences from home require considerable and taxing effort and are for medical reasons or voodoo services or infrequently or short duration when for other reasons) because: Homebound Reason: Leaving home requires considerable and taxing effort due to condition (Morbid obesity, wound VAC) Attestation: My signature below is to certify that this patient is under my care and that I, or nurse practitioner, or a physician's trading assistant working with me, has a face-to -face encounter with this patient.
[2018-07-17] MEDS: hydrOXYzine pamoate 25 MG CAPSULE PO PRN (09:01)
== END 2018-07-17 01:00 | disposition home health service (06) | DRG 945 ==
LOC: INPPIK 06-28 23:14
PROVIDERS: ADMIT Internal Medicine; ATTEND Internal Medicine

== ENCOUNTER 2018-08-12 12:18 | Inpatient (IN) ==
[2018-08-12] MEDS ORDERED: *HR* Dextrose 50 % in Water (Syg) 50 ML SYRINGE IVP PRN (19:33)
[2018-08-12] MEDS ORDERED: Dextrose Gel 15 GM/37.5 ML TUBE PO PRN ×2 (19:33)
[2018-08-12] MEDS ORDERED: D5% in Water 1,000 ML IVC PRN (19:33)
[2018-08-12] MEDS ORDERED: Acetaminophen 325 MG TABLET PO PRN (19:53)
[2018-08-12] MEDS ORDERED: SODIUM CHLORIDE 0.9% IVPB SCH (20:00)
[2018-08-12] MEDS ORDERED: VANCOMYCIN IVPB SCH (20:00)
[2018-08-12] MEDS ORDERED: NON-FORMULARY MEDICATION 1 EACH EACH (Melatonin [Melatonin] 5 MG) PO SCH (21:00)
[2018-08-12] MEDS ORDERED: Insulin DETEMIR 100 UNIT/ML per UNIT SQ ONE (22:00)
[2018-08-12] MEDS: Diltiazem CD (24hr) 240 MG CAPSULE PO SCH (22:05)
[2018-08-12] MEDS: *HR* Metformin 500 MG TABLET PO SCH (22:05)
[2018-08-12] MEDS: *HR* OxyCODONE Immed Rel 15 MG TABLET PO SCH (22:05)
[2018-08-12] MEDS: Methocarbamol 500 MG TABLET PO SCH (22:06)
[2018-08-12] MEDS: Melatonin 3 MG TABLET PO SCH (22:06)
[2018-08-12] MEDS: Pregabalin 75 MG CAPSULE PO SCH (22:06)
[2018-08-12] MEDS: Insulin LISPRO 300 UNITS/3 ML VIAL SQ SCH (22:07)
[2018-08-12] MEDS: Gentamicin Oint 15 GM TUBE TP SCH (22:07)
[2018-08-13] MEDS: FLUoxetine 20 MG CAPSULE PO SCH (09:10)
[2018-08-13] MEDS: *HR* Rivaroxaban 10 MG TABLET PO SCH (09:10)
[2018-08-13] MEDS: Gentamicin Oint 15 GM TUBE TP SCH ×2 (09:10→21:03)
[2018-08-13] MEDS: Insulin DETEMIR 100 UNIT/ML X5UNITS SQ SCH ×2 (09:10→20:56)
[2018-08-13] MEDS: Pregabalin 75 MG CAPSULE PO SCH ×3 (09:10→20:55)
[2018-08-13] MEDS: Diltiazem CD (24hr) 240 MG CAPSULE PO SCH ×2 (09:10→20:55)
[2018-08-13] MEDS: Furosemide 20 MG TABLET PO SCH ×2 (09:10→16:11)
[2018-08-13] MEDS: *HR* Metformin 500 MG TABLET PO SCH ×2 (09:10→20:55)
[2018-08-13] MEDS: *HR* OxyCODONE Immed Rel 15 MG TABLET PO SCH ×2 (09:10→20:56)
--- NOTE | 2018-08-13 11:36 | Internal Med History&Physical ---
Date of Encounter: 08/13/18 Time of Encounter: 11:10 Assessment and Plan (1) Cellulitis of leg, right Current visit: No Status: Acute Continue IV ertapenem and vancomycin. Add lactobacillus. (2) Anemia Current visit: No Status: Acute Order anemia testing in a.m. Qualifiers: Anemia type: unspecified type Qualified Code(s): D64.9 - Anemia, unspecified (3) Hypertension Current visit: No Status: Chronic Continue Cozaar Qualifiers: Hypertension type: essential hypertension Qualified Code(s): I10 - Essential (primary) hypertension (4) Diabetes Current visit: No Status: Chronic Continue Levemir, Glucophage, and Accu-Cheks with SSI. Qualifiers: Diabetes mellitus type: type 2 Diabetes mellitus terminologist insulin use: with terminologist use Diabetes mellitus complication status: with hyperglycemia Qualified Code(s): E11.65 - Type 2 diabetes mellitus with hyperglycemia; Z79.4 - emt intermediate (current) use of insulin (5) DVT (deep venous thrombosis) Current visit: No Status: Chronic Continue Xarelto Qualifiers: DVT location: lower extremity Affected thrombotic vein of extremity: unspecified vein of extremity Chronicity: chronic Laterality: bilateral Qualified Code(s): I82.503 - Chronic embolism and thrombosis of unspecified deep veins of lower extremity, bilateral Internal Medicine - H&P: HPI Chief complaint: Right leg wound Admitted From: Hospital to Hospital Transfer Plans for Post Hospital Care: Home History of present illness: Ms. Arredondo is a 48 year old female who was hospitalized at [facility] August 06 after presenting following a fall at home the previous night due to weakness. 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 Wound culture showed pseudomonas aeruginosa, Escherichia coli, Enterococcus faecalis, Klebsiella pneumonia ESBL. She was treated with IV antibiotics and discharged to [facility] swing bed to continue IV antibiotics and therapy for an additional 10 days. She has previously been [facility] swing bed June 29-July 17 for therapy following treatment at [facility] for the right leg wound. The wound was initially sustained May 2018 when she fell at a gas station. She had debridement during her initial [facility] stay in June followed by wound VAC placement. Past Med Surg Social Fam HX - Past Medical History Medical history: DVT, diabetes, GERD, hyperlipidemia, hypertension Additional medical history: Sleep apnea, Lymphedema, DM neuropathy, Cellulitis, Psychiatric history: anxiety, depression - Past Surgical History Surgical History: appendectomy - Social History Smoking Status: Former smoker Smokeless Tobacco Status: No Alcohol use: none Drug use: none - Family History Mother Family Member Ethnicity: Non- Living Status: Hx Family Cardiac Disorders: Yes Hx Family Respiratory Disorders: No Hx Family Cancer: No Hx Family GI Disorders: No Hx Family Endocrine Disorder: No Hx Family Neuromuscular Disorders: No Hx Family Neurologic Disorders: No Hx Family HEENT Disorders: No Hx Family Autoimmune Disorders: No Father Adopted: No Living Status: Hx Family Cardiac Disorders: Yes Hx Family Respiratory Disorders: Yes Hx Family Cancer: No Hx Family GI Disorders: No Hx Family Endocrine Disorder: Yes Hx Family Neuromuscular Disorders: No Hx Family Neurologic Disorders: No Hx Family HEENT Disorders: No Hx Family Autoimmune Disorders: No Internal Medicine - H&P: Meds Diltiazem CD (24hr) [Cardizem CD] 240 mg PO BID 07/31/15 [History] hydrOXYzine pamoate [HydrOXYzine Pamoate] 25 - 50 mg PO Q6H PRN 07/31/15 [History] Ferrous Sulfate 325 mg PO BIDWM 03/11/17 [History] Furosemide [Lasix] 40 mg PO BID 03/11/17 [History] Insulin Glargine,Hum.rec.anlog [Toujose armando Solostar] 65 unit SQ BID 03/11/17 [History] Melatonin 5 mg PO HS 03/11/17 [History] Methocarbamol [Robaxin] 750 mg PO HS 03/11/17 [History] Dulaglutide [Trulicity] 0.75 mg SQ QWEEK 03/10/18 [History] Montelukast [Singulair] 10 mg PO HS 03/10/18 [History] Oxybutynin [Ditropan] 5 mg PO BID 03/10/18 [History] Rivaroxaban [Xarelto] 10 mg PO DAILY #30 tablet 03/10/18 [Rx] FLUoxetine HCl [Prozac] 40 mg PO DAILY 06/21/18 [History] Insulin LISPRO [HumaLOG] 50 units SQ TIDWM 06/21/18 [History] Omeprazole [PriLOSEC] 40 mg PO DAILY 06/21/18 [History] Promethazine [Phenergan] 25 mg PO Q8H PRN 06/21/18 [History] Acetaminophen [Tylenol] 650 mg PO Q6HR PRN tablet 06/28/18 [Rx] Irbesartan [Avapro] 150 mg PO DAILY 08/06/18 [History] Metformin HCl 1,000 mg PO BID 08/06/18 [History] Nabumetone [Relafen] 500 mg PO DAILY 08/06/18 [History] Oxycodone HCl 15 mg PO BID 08/06/18 [History] Rosuvastatin Calcium 20 mg PO DAILY 08/06/18 [History] Dulaglutide [Trulicity] 1.5 mg SQ WE 08/07/18 [History] Pregabalin [Lyrica] 150 mg PO TID 08/07/18 [History] Atorvastatin [Lipitor] 40 mg PO HS 30 Days #30 tablet 08/12/18 [Rx] Pregabalin [Lyrica] 150 mg PO TID 30 Days #90 capsule 08/12/18 [Rx] Allergy/AdvReac Type Severity Reaction Status Date / Time Penicillins Allergy Intermediate Rash Verified 03/10/18 13:13 pioglitazone [From Actos] Allergy Intermediate See Verified 03/10/18 13:13 Comments sitagliptin [From Januvia] Allergy Intermediate See Verified 03/10/18 13:13 Comments Sulfa (Sulfonamide Allergy Intermediate Hives Verified 03/10/18 13:13 Antibiotics) nabumetone Allergy Muscle Pain Verified 03/10/18 13:13 sulfamethoxazole Allergy Rash Verified 03/10/18 13:13 [From Bactrim] trimethoprim [From Bactrim] Allergy Rash Verified 03/10/18 13:13 All Systems PM: A 10-system review of systems was performed and is negative for pertinent findings except as documented above in the HPI. Review of systems: Review of systems from her June 2018 [facility] swing bed stay were reviewed and revised as below. Gen.: Her weight has been stable the past month at approximately 172 kg. Cardiovascular: She has history of hypertension but denies CA heart failure or angina. She has had multiple DVTs since 2013 involving both legs and her left arm and has been on Xarelto. Respiratory: She smoked from age [age]. She denies chronic lung disease. She has "allergies". GI: She denies disorders of liver gallbladder or exocrine pancreas. She has GERD. : She has overactive bladder. She denies chronic kidney disease or other kidney or bladder disorders. Neurologic: She denies large distribution strokes or seizures. She has diabetic peripheral neuropathy. Endocrine: She was diagnosed with DM 2 in 1991. She has hyperlipidemia but denies thyroid disease. Hematology/oncology: She has anemia with history of B12 deficiency. She is presently on iron supplementation. She denies internal malignancies. Psychiatric: She has anxiety and depression but denies other mental health issues. Musko skeletal: She has DJD but denies gout or other bone joint or muscle disorders. - Constitutional Vitals: Temp Pulse Resp BP Pulse Ox 98.1 F 66 18 118/72 93 08/13/18 06:41 08/13/18 06:41 08/13/18 06:41 08/13/18 06:41 08/13/18 06:41 Exam: Gen.: She is a well-developed morbidly obese female sitting on the side of bed who appears in no acute distress HEENT: Head is atraumatic and normal cephalic. Eyes: EOMI. There is no scleral icterus. Mouth: Mucosa is moist. Neck: Supple and nontender. There is no thyromegaly or adenopathy noted. Heart: Regular without murmurs gallops or ectopics Lungs: No wheezes or crackles are heard. Abdomen: Abdomen is nontender to palpation. Exam is limited because she is in the seated position. Extremities: The right lower leg is wrapped from the knee to the lower ankle level with gauze and elastic wrap. I did not unwrap these. She has 2-3+ edema the dorsum of the feet bilaterally. She has significant chronic dermal edema visible on the left lower leg with nodularity present. There is 1+ pitting edema as well. She has minimal DJD changes or hands. Neurologic: Mental status: She is talkative and a good historian. Cranial nerves: Smile is symmetric. Forehead wrinkles bilaterally. Tongue protrudes midline. EOMI. Motor: There is no pronator drift. Cerebellar: Finger to nose is intact bilaterally. Skin: Warm and dry
[2018-08-13] MEDS: Insulin LISPRO 300 UNITS/3 ML VIAL SQ SCH ×4 (12:11→20:57)
[2018-08-13] MEDS: Ertapenem 1,000 MG in 0.9 % Sodium Chloride Mini Bag 100 ML IVPB SCH (12:35)
[2018-08-13] MEDS: hydrOXYzine pamoate 25 MG CAPSULE PO PRN (16:09)
[2018-08-13] MEDS: Melatonin 3 MG TABLET PO SCH (20:55)
[2018-08-13] MEDS: Methocarbamol 500 MG TABLET PO SCH (20:56)
[2018-08-14] MEDS: Insulin LISPRO 300 UNITS/3 ML VIAL SQ SCH ×4 (07:44→20:21)
[2018-08-14] MEDS: Pregabalin 75 MG CAPSULE PO SCH ×3 (08:02→20:19)
[2018-08-14] MEDS: FLUoxetine 20 MG CAPSULE PO SCH (08:02)
[2018-08-14] MEDS: *HR* Metformin 500 MG TABLET PO SCH ×2 (08:02→20:19)
[2018-08-14] MEDS: *HR* OxyCODONE Immed Rel 15 MG TABLET PO SCH ×2 (08:03→20:20)
[2018-08-14] MEDS: Furosemide 20 MG TABLET PO SCH ×2 (08:03→15:17)
[2018-08-14] MEDS: *HR* Rivaroxaban 10 MG TABLET PO SCH (08:04)
[2018-08-14] MEDS: Diltiazem CD (24hr) 240 MG CAPSULE PO SCH ×2 (08:04→20:19)
[2018-08-14] MEDS: Ertapenem 1,000 MG in 0.9 % Sodium Chloride Mini Bag 100 ML IVPB SCH (08:04)
[2018-08-14] MEDS: Insulin DETEMIR 100 UNIT/ML X5UNITS SQ SCH ×2 (09:08→20:21)
[2018-08-14] MEDS: Gentamicin Oint 15 GM TUBE TP SCH ×2 (09:10→20:23)
[2018-08-14 09:34] LABS: % Iron Saturation 14 % (15-50); Iron 38 mcg/dL (50-170); Transferrin 200 mg/dL (203-362)
[2018-08-14 09:52] LABS: Ferritin 138 ng/mL (10-120)
[2018-08-14 09:57] LABS: Folate 8.5 ng/mL (3.0-16.0)
[2018-08-14] MEDS: hydrOXYzine pamoate 25 MG CAPSULE PO PRN ×2 (10:33→20:34)
[2018-08-14] MEDS: Melatonin 3 MG TABLET PO SCH (20:20)
[2018-08-14] MEDS: Methocarbamol 500 MG TABLET PO SCH (20:20)
[2018-08-15] MEDS: Insulin LISPRO 300 UNITS/3 ML VIAL SQ SCH ×4 (07:16→21:04)
[2018-08-15] MEDS: Insulin DETEMIR 100 UNIT/ML X5UNITS SQ SCH ×2 (08:01→21:03)
[2018-08-15] MEDS: FLUoxetine 20 MG CAPSULE PO SCH (08:01)
[2018-08-15] MEDS: *HR* Rivaroxaban 10 MG TABLET PO SCH (08:02)
[2018-08-15] MEDS: Furosemide 20 MG TABLET PO SCH ×2 (08:02→15:15)
[2018-08-15] MEDS: Diltiazem CD (24hr) 240 MG CAPSULE PO SCH ×2 (08:02→21:00)
[2018-08-15] MEDS: Pregabalin 75 MG CAPSULE PO SCH ×3 (08:02→21:01)
[2018-08-15] MEDS: *HR* Metformin 500 MG TABLET PO SCH ×2 (08:02→21:00)
[2018-08-15] MEDS: Ertapenem 1,000 MG in 0.9 % Sodium Chloride Mini Bag 100 ML IVPB SCH (08:05)
[2018-08-15] MEDS: *HR* OxyCODONE Immed Rel 15 MG TABLET PO SCH ×2 (08:06→21:02)
[2018-08-15] MEDS: Gentamicin Oint 15 GM TUBE TP SCH ×2 (08:09→21:05)
[2018-08-15] MEDS: hydrOXYzine pamoate 25 MG CAPSULE PO PRN ×2 (09:55→21:00)
--- NOTE | 2018-08-15 12:43 | Internal Med Progress Note ---
Date of Encounter: 08/15/18 Time of Encounter: 12:35 - Assessment and plan (1) Cellulitis of leg, right Current Visit: No Status: Acute Assessment and plan: August 15. Continue IV ertapenem and vancomycin with lactobacillus. (2) Anemia Current Visit: No Status: Acute Assessment and plan: August 15. Anemia testing showed iron 38, transferrin saturation 14%, transferrin 200, ferritin 138, B12 657, and folate 8.5. She will start ferrous sulfate with ascorbic acid in a.m. Qualifiers: Anemia type: unspecified type Qualified Code(s): D64.9 - Anemia, unspecified (3) Hypertension Current Visit: No Status: Chronic Assessment and plan: August 15. Blood pressure well-controlled on present dose Cozaar. Qualifiers: Hypertension type: essential hypertension Qualified Code(s): I10 - Essential (primary) hypertension (4) Diabetes Current Visit: No Status: Chronic Assessment and plan: August 15. Continue Levemir, Glucophage, and Accu-Cheks with SSI. Qualifiers: Diabetes mellitus type: type 2 Diabetes mellitus fpc insulin use: with buttermaker use Diabetes mellitus complication status: with hyperglycemia Qualified Code(s): E11.65 - Type 2 diabetes mellitus with hyperglycemia; Z79.4 - [facility] (current) use of insulin (5) DVT (deep venous thrombosis) Current Visit: No Status: Chronic Assessment and plan: August 15. Continue Xarelto Qualifiers: DVT location: lower extremity Affected thrombotic vein of extremity: unspecified vein of extremity Chronicity: chronic Laterality: bilateral Qualified Code(s): I82.503 - Chronic embolism and thrombosis of unspecified deep veins of lower extremity, bilateral - Subjective Interval history: August 15. She has no new complaints and feels well. - Constitutional Vitals: Temp Pulse Resp BP Pulse Ox 97.9 F 62 14 121/80 98 08/15/18 06:41 08/15/18 06:41 08/15/18 06:41 08/15/18 06:41 08/15/18 06:41 Exam: She is resting comfortably in a chair at bedside and appears in no acute distress. Her affect is bright and cheerful. I reviewed her medications and lab results. Consult Discharge Plan - Plan Referrals: Job Sage DO [Primary Care Provider] - 1 week
[2018-08-15] MEDS: Melatonin 3 MG TABLET PO SCH (21:00)
[2018-08-15] MEDS: Lactobacillus 1 EACH CAP.SPRINK PO SCH (21:01)
[2018-08-15] MEDS: Methocarbamol 500 MG TABLET PO SCH (21:02)
[2018-08-16] MEDS: Ascorbic Acid 500 MG TABLET PO SCH (06:53)
[2018-08-16] MEDS: FLUoxetine 20 MG CAPSULE PO SCH (10:06)
[2018-08-16] MEDS: Insulin LISPRO 300 UNITS/3 ML VIAL SQ SCH ×4 (10:06→21:52)
[2018-08-16] MEDS: Diltiazem CD (24hr) 240 MG CAPSULE PO SCH ×2 (10:06→21:48)
[2018-08-16] MEDS: Furosemide 20 MG TABLET PO SCH ×2 (10:07→17:05)
[2018-08-16] MEDS: Pregabalin 75 MG CAPSULE PO SCH ×3 (10:07→21:49)
[2018-08-16] MEDS: *HR* Metformin 500 MG TABLET PO SCH ×2 (10:07→21:48)
[2018-08-16] MEDS: Lactobacillus 1 EACH CAP.SPRINK PO SCH ×2 (10:07→21:49)
[2018-08-16] MEDS: *HR* Rivaroxaban 10 MG TABLET PO SCH (10:07)
[2018-08-16] MEDS: Ertapenem 1,000 MG in 0.9 % Sodium Chloride Mini Bag 100 ML IVPB SCH (10:08)
[2018-08-16] MEDS: *HR* OxyCODONE Immed Rel 15 MG TABLET PO SCH ×2 (10:09→21:50)
[2018-08-16] MEDS: Gentamicin Oint 15 GM TUBE TP SCH ×2 (10:09→21:50)
[2018-08-16] MEDS: Insulin DETEMIR 100 UNIT/ML X5UNITS SQ SCH ×2 (10:09→21:51)
[2018-08-16] MEDS: hydrOXYzine pamoate 25 MG CAPSULE PO PRN ×2 (10:20→22:30)
[2018-08-16] MEDS: Methocarbamol 500 MG TABLET PO SCH (21:48)
[2018-08-16] MEDS: Melatonin 3 MG TABLET PO SCH (21:49)
[2018-08-17] MEDS: Ascorbic Acid 500 MG TABLET PO SCH (06:25)
[2018-08-17] MEDS: Insulin LISPRO 300 UNITS/3 ML VIAL SQ SCH ×4 (07:34→21:42)
[2018-08-17] MEDS: *HR* Rivaroxaban 10 MG TABLET PO SCH (08:40)
[2018-08-17] MEDS: Diltiazem CD (24hr) 240 MG CAPSULE PO SCH ×2 (08:40→21:30)
[2018-08-17] MEDS: FLUoxetine 20 MG CAPSULE PO SCH (08:40)
[2018-08-17] MEDS: Pregabalin 75 MG CAPSULE PO SCH ×3 (08:40→21:30)
[2018-08-17] MEDS: Insulin DETEMIR 100 UNIT/ML X5UNITS SQ SCH ×2 (08:40→21:31)
[2018-08-17] MEDS: *HR* Metformin 500 MG TABLET PO SCH ×2 (08:40→21:30)
[2018-08-17] MEDS: Gentamicin Oint 15 GM TUBE TP SCH ×2 (08:40→21:29)
[2018-08-17] MEDS: Ertapenem 1,000 MG in 0.9 % Sodium Chloride Mini Bag 100 ML IVPB SCH (08:41)
[2018-08-17] MEDS: Lactobacillus 1 EACH CAP.SPRINK PO SCH ×2 (08:41→21:29)
[2018-08-17] MEDS: Furosemide 20 MG TABLET PO SCH ×2 (08:41→17:38)
[2018-08-17] MEDS: *HR* OxyCODONE Immed Rel 15 MG TABLET PO SCH ×2 (08:51→21:31)
[2018-08-17] MEDS: hydrOXYzine pamoate 25 MG CAPSULE PO PRN (11:42)
[2018-08-17] MEDS: Melatonin 3 MG TABLET PO SCH (21:29)
[2018-08-17] MEDS: Methocarbamol 500 MG TABLET PO SCH (21:30)
[2018-08-18] MEDS: Ascorbic Acid 500 MG TABLET PO SCH (06:32)
[2018-08-18] MEDS: Pregabalin 75 MG CAPSULE PO SCH ×3 (09:22→21:06)
[2018-08-18] MEDS: Diltiazem CD (24hr) 240 MG CAPSULE PO SCH ×2 (09:23→21:02)
[2018-08-18] MEDS: Furosemide 20 MG TABLET PO SCH ×3 (09:23→16:24)
[2018-08-18] MEDS: FLUoxetine 20 MG CAPSULE PO SCH (09:23)
[2018-08-18] MEDS: *HR* Rivaroxaban 10 MG TABLET PO SCH (09:23)
[2018-08-18] MEDS: hydrOXYzine pamoate 25 MG CAPSULE PO PRN (09:23)
[2018-08-18] MEDS: *HR* Metformin 500 MG TABLET PO SCH ×2 (09:23→21:04)
[2018-08-18] MEDS: Lactobacillus 1 EACH CAP.SPRINK PO SCH ×2 (09:23→21:03)
[2018-08-18] MEDS: Gentamicin Oint 15 GM TUBE TP SCH ×2 (09:24→21:03)
[2018-08-18] MEDS: *HR* OxyCODONE Immed Rel 15 MG TABLET PO SCH ×2 (09:24→21:05)
[2018-08-18] MEDS: Insulin LISPRO 300 UNITS/3 ML VIAL SQ SCH ×4 (09:24→21:06)
[2018-08-18] MEDS: Ertapenem 1,000 MG in 0.9 % Sodium Chloride Mini Bag 100 ML IVPB SCH (09:25)
[2018-08-18] MEDS: Insulin DETEMIR 100 UNIT/ML X5UNITS SQ SCH ×2 (09:26→21:06)
--- NOTE | 2018-08-18 17:27 | Internal Med Progress Note ---
Date of Encounter: 08/18/18 Time of Encounter: 17:15 - Assessment and plan (1) Cellulitis of leg, right Current Visit: No Status: Acute Assessment and plan: August 15. Continue IV ertapenem and vancomycin with lactobacillus. (2) Anemia Current Visit: No Status: Acute Assessment and plan: August 15. Anemia testing showed iron 38, transferrin saturation 14%, transferrin 200, ferritin 138, B12 657, and folate 8.5. She will start ferrous sulfate with ascorbic acid in a.m. Qualifiers: Anemia type: unspecified type Qualified Code(s): D64.9 - Anemia, unspecified (3) Hypertension Current Visit: No Status: Chronic Assessment and plan: August 15. Blood pressure well-controlled on present dose Cozaar. Qualifiers: Hypertension type: essential hypertension Qualified Code(s): I10 - Essential (primary) hypertension (4) Diabetes Current Visit: No Status: Chronic Assessment and plan: August 15. Continue Levemir, Glucophage, and Accu-Cheks with SSI. Qualifiers: Diabetes mellitus type: type 2 Diabetes mellitus [facility] insulin use: with termite treater use Diabetes mellitus complication status: with hyperglycemia Qualified Code(s): E11.65 - Type 2 diabetes mellitus with hyperglycemia; Z79.4 - intermediate (current) use of insulin (5) DVT (deep venous thrombosis) Current Visit: No Status: Chronic Assessment and plan: August 15. Continue Xarelto Qualifiers: DVT location: lower extremity Affected thrombotic vein of extremity: unspecified vein of extremity Chronicity: chronic Laterality: bilateral Qualified Code(s): I82.503 - Chronic embolism and thrombosis of unspecified deep veins of lower extremity, bilateral - Subjective Interval history: August 15. She has no new complaints and feels well. August 18. She has no new complaints. - Constitutional Vitals: Temp Pulse Resp BP Pulse Ox 98.2 F 68 16 147/73 98 08/18/18 08:18 08/18/18 08:18 08/18/18 08:18 08/18/18 08:18 08/18/18 15:09 Exam: She is resting comfortably in bed and appears in no acute distress. Her affect is bright and cheerful. I reviewed her medications and lab results. Consult Discharge Plan - Plan Referrals: Job Sage DO [Primary Care Provider] - 1 week
[2018-08-18] MEDS: Methocarbamol 500 MG TABLET PO SCH (21:03)
[2018-08-18] MEDS: Melatonin 3 MG TABLET PO SCH (21:04)
[2018-08-19] MEDS: Ascorbic Acid 500 MG TABLET PO SCH (06:37)
[2018-08-19] MEDS: FLUoxetine 20 MG CAPSULE PO SCH (08:03)
[2018-08-19] MEDS: Diltiazem CD (24hr) 240 MG CAPSULE PO SCH ×2 (08:04→20:48)
[2018-08-19] MEDS: Insulin DETEMIR 100 UNIT/ML X5UNITS SQ SCH ×2 (08:04→20:49)
[2018-08-19] MEDS: Pregabalin 75 MG CAPSULE PO SCH ×3 (08:04→20:48)
[2018-08-19] MEDS: *HR* OxyCODONE Immed Rel 15 MG TABLET PO SCH ×2 (08:05→20:48)
[2018-08-19] MEDS: *HR* Metformin 500 MG TABLET PO SCH ×2 (08:05→20:48)
[2018-08-19] MEDS: Lactobacillus 1 EACH CAP.SPRINK PO SCH ×2 (08:05→20:48)
[2018-08-19] MEDS: hydrOXYzine pamoate 25 MG CAPSULE PO PRN ×3 (08:05→20:51)
[2018-08-19] MEDS: *HR* Rivaroxaban 10 MG TABLET PO SCH (08:05)
[2018-08-19] MEDS: Gentamicin Oint 15 GM TUBE TP SCH ×2 (08:06→20:49)
[2018-08-19] MEDS: Insulin LISPRO 300 UNITS/3 ML VIAL SQ SCH ×4 (08:06→20:51)
[2018-08-19] MEDS: Ertapenem 1,000 MG in 0.9 % Sodium Chloride Mini Bag 100 ML IVPB SCH (12:54)
[2018-08-19] MEDS: Furosemide 20 MG TABLET PO SCH (17:19)
[2018-08-19] MEDS: Methocarbamol 500 MG TABLET PO SCH (20:48)
[2018-08-19] MEDS: Melatonin 3 MG TABLET PO SCH (20:49)
[2018-08-20] MEDS: Ascorbic Acid 500 MG TABLET PO SCH (06:25)
[2018-08-20] MEDS: Insulin LISPRO 300 UNITS/3 ML VIAL SQ SCH ×4 (08:21→22:08)
[2018-08-20] MEDS: Ertapenem 1,000 MG in 0.9 % Sodium Chloride Mini Bag 100 ML IVPB SCH (09:44)
[2018-08-20] MEDS: Diltiazem CD (24hr) 240 MG CAPSULE PO SCH ×2 (09:45→22:07)
[2018-08-20] MEDS: hydrOXYzine pamoate 25 MG CAPSULE PO PRN ×2 (09:46→23:26)
[2018-08-20] MEDS: *HR* Rivaroxaban 10 MG TABLET PO SCH (09:46)
[2018-08-20] MEDS: *HR* OxyCODONE Immed Rel 15 MG TABLET PO SCH ×2 (09:46→22:07)
[2018-08-20] MEDS: FLUoxetine 20 MG CAPSULE PO SCH (09:46)
[2018-08-20] MEDS: Pregabalin 75 MG CAPSULE PO SCH ×3 (09:46→22:08)
[2018-08-20] MEDS: *HR* Metformin 500 MG TABLET PO SCH ×2 (09:47→22:06)
[2018-08-20] MEDS: Lactobacillus 1 EACH CAP.SPRINK PO SCH ×2 (09:47→22:07)
[2018-08-20] MEDS: Furosemide 20 MG TABLET PO SCH ×2 (09:47→15:56)
[2018-08-20] MEDS: Gentamicin Oint 15 GM TUBE TP SCH ×2 (09:47→22:08)
[2018-08-20] MEDS: Insulin DETEMIR 100 UNIT/ML X5UNITS SQ SCH ×2 (10:10→22:08)
[2018-08-20] MEDS: Melatonin 3 MG TABLET PO SCH (22:07)
[2018-08-20] MEDS: Methocarbamol 500 MG TABLET PO SCH (22:30)
[2018-08-21] MEDS: Ascorbic Acid 500 MG TABLET PO SCH (06:28)
[2018-08-21 06:32] VITALS: BP 121/77
[2018-08-21] MEDS ORDERED: Aminoglycoside Consult 1 EACH MC ONE (08:00)
[2018-08-21] MEDS: Gentamicin Oint 15 GM TUBE TP SCH (08:43)
[2018-08-21] MEDS: Ertapenem 1,000 MG in 0.9 % Sodium Chloride Mini Bag 100 ML IVPB SCH (08:44)
[2018-08-21] MEDS: *HR* Metformin 500 MG TABLET PO SCH (08:47)
[2018-08-21] MEDS: FLUoxetine 20 MG CAPSULE PO SCH (08:47)
[2018-08-21] MEDS: Diltiazem CD (24hr) 240 MG CAPSULE PO SCH (08:47)
[2018-08-21] MEDS: Lactobacillus 1 EACH CAP.SPRINK PO SCH (08:47)
[2018-08-21] MEDS: Pregabalin 75 MG CAPSULE PO SCH ×2 (08:47→14:43)
[2018-08-21] MEDS: hydrOXYzine pamoate 25 MG CAPSULE PO PRN (08:48)
[2018-08-21] MEDS: *HR* Rivaroxaban 10 MG TABLET PO SCH (08:48)
[2018-08-21] MEDS: Furosemide 20 MG TABLET PO SCH (08:48)
[2018-08-21] MEDS: *HR* OxyCODONE Immed Rel 15 MG TABLET PO SCH (08:48)
[2018-08-21] MEDS: Insulin LISPRO 300 UNITS/3 ML VIAL SQ SCH ×2 (08:49→12:38)
[2018-08-21] MEDS: Insulin DETEMIR 100 UNIT/ML X5UNITS SQ SCH (09:00)
--- NOTE | 2018-08-21 09:14 | Discharge Summary ---
Date of Encounter: 08/21/18 Time of Encounter: 09:05 - Discharge Diagnosis (1) Cellulitis of leg, right Priority: Primary Status: Acute (2) Anemia Priority: Secondary Status: Acute Qualifiers: Anemia type: unspecified type Qualified Code(s): D64.9 - Anemia, unspecified (3) Hypertension Priority: Secondary Status: Chronic Qualifiers: Hypertension type: essential hypertension Qualified Code(s): I10 - Essential (primary) hypertension (4) Diabetes Priority: Secondary Status: Chronic Qualifiers: Diabetes mellitus type: type 2 Diabetes mellitus jail insulin use: with assistant terminal manager use Diabetes mellitus complication status: with hyperglycemia Qualified Code(s): E11.65 - Type 2 diabetes mellitus with hyperglycemia; Z79.4 - long term care social worker (current) use of insulin (5) DVT (deep venous thrombosis) Priority: Secondary Status: Chronic Qualifiers: DVT location: lower extremity Affected thrombotic vein of extremity: unspecified vein of extremity Chronicity: chronic Laterality: bilateral Qualified Code(s): 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 Arredondo is a 48 year old female who was hospitalized at [facility] August 06- after presenting following a fall at home the previous night due to weakness. 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 Wound culture showed pseudomonas aeruginosa, Escherichia coli, Enterococcus faecalis, Klebsiella pneumonia ESBL. She was treated with IV antibiotics and discharged to [facility] swing bed to continue IV antibiotics and therapy for an additional 10 days. She has previously been in [facility] swing bed June 29-July 17 for therapy following treatment at [facility] for the right leg wound. The wound was initially sustained May 2018 when she fell at a gas station. She had debridement during her initial [facility] stay in June followed by wound VAC placement. Initial orders were written by the discharging physicians at [facility]. I saw her on August 13 and performed a swing bed history and physical. She continued with IV ertapenem and vancomycin with lactobacillus. She remained afebrile during her hospital stay and had no complications. She will be discharged home and continue with wound VAC as ordered. She will follow with the [facility] wound clinic personnel as directed. Anemia testing showed iron 38, transferrin saturation 14%, transferrin 200, fe rritin 138, B12 657, and folate 8.5. She was started on ferrous sulfate with vitamin C and these will be continued at discharge. Vitamin D level returned low at 11. She will be prescribed vitamin D 1000 international units daily. She will be discharged home following completion of IV antibiotics today. She will follow with her PCP Dr. Sage within 1 week. - Time Spent with Patient Total time spent providing and/or coordinating discharge services: - Discharge Medications Prescriptions: Ascorbic Acid [Vitamin C] 500 mg PO 0630 #30 tablet Cholecalciferol (D-3) [Vitamin D] 1,000 unit PO DAILY #30 tablet Home Medications: Diltiazem CD (24hr) [Cardizem CD] 240 mg PO BID 07/31/15 [History] hydrOXYzine pamoate [HydrOXYzine Pamoate] 25 - 50 mg PO Q6H PRN 07/31/15 [History] Ferrous Sulfate 325 mg PO BIDWM 03/11/17 [History] Furosemide [Lasix] 40 mg PO BID 03/11/17 [History] Insulin Glargine,Hum.rec.anlog [Toujeo Solostar] 65 unit SQ BID 03/11/17 [History] Melatonin 5 mg PO HS 03/11/17 [History] Methocarbamol [Robaxin] 750 mg PO HS 03/11/17 [History] Dulaglutide [Trulicity] 0.75 mg SQ QWEEK 03/10/18 [History] Montelukast [Singulair] 10 mg PO HS 03/10/18 [History] Oxybutynin [Ditropan] 5 mg PO BID 03/10/18 [History] Rivaroxaban [Xarelto] 10 mg PO DAILY #30 tablet 03/10/18 [Rx] FLUoxetine HCl [Prozac] 40 mg PO DAILY 06/21/18 [History] Insulin LISPRO [HumaLOG] 50 units SQ TIDWM 06/21/18 [History] Omeprazole [PriLOSEC] 40 mg PO DAILY 06/21/18 [History] Promethazine [Phenergan] 25 mg PO Q8H PRN 06/21/18 [History] Acetaminophen [Tylenol] 650 mg PO Q6HR PRN tablet 06/28/18 [Rx] Irbesartan [Avapro] 150 mg PO DAILY 08/06/18 [History] Metformin HCl 1,000 mg PO BID 08/06/18 [History] Nabumetone [Relafen] 500 mg PO DAILY 08/06/18 [History] Oxycodone HCl 15 mg PO BID 08/06/18 [History] Rosuvastatin Calcium 20 mg PO DAILY 08/06/18 [History] Dulaglutide [Trulicity] 1.5 mg SQ WE 08/07/18 [History] Pregabalin [Lyrica] 150 mg PO TID 08/07/18 [History] Atorvastatin [Lipitor] 40 mg PO HS 30 Days #30 tablet 08/12/18 [Rx] Pregabalin [Lyrica] 150 mg PO TID 30 Days #90 capsule 08/12/18 [Rx] Ascorbic Acid [Vitamin C] 500 mg PO 0630 #30 tablet 08/21/18 [Rx] Cholecalciferol (D-3) [Vitamin D] 1,000 unit PO DAILY #30 tablet 08/21/18 [Rx] Allergies/Adverse Reactions: Allergy/AdvReac Type Severity Reaction Status Date / Time Penicillins Allergy Intermediate Rash Verified 03/10/18 13:13 pioglitazone [From Actos] Allergy Intermediate See Verified 03/10/18 13:13 Comments sitagliptin [From Januvia] Allergy Intermediate See Verified 03/10/18 13:13 Comments Sulfa (Sulfonamide Allergy Intermediate Hives Verified 03/10/18 13:13 Antibiotics) nabumetone Allergy Muscle Pain Verified 03/10/18 13:13 sulfamethoxazole Allergy Rash Verified 03/10/18 13:13 [From Bactrim] trimethoprim [From Bactrim] Allergy Rash Verified 03/10/18 13:13 Date of admission: 08/12/18 19:35 Primary care physician: Job Sage DO Consults: 08/12/18 23:16 PT [Consult to Physical Therapy] [CONS] Routine Comment: Evaluate, develop and implement POC Reason for Consult: New Swing bed admit Does patient have active BEDREST order?: No Is patient medically & hemodynamically stable?: Yes Patient assessed for mobility or mobilized this visit?: Yes 08/12/18 23:17 OT [Consult to Occupational Therapy] [CONS] Routine Comment: Evaluate, develop and implement POC Reason for Consult: New Swing bed admit Does patient have active BEDREST order?: No Is patient medically & hemodynamically stable?: Yes Patient assessed for mobility or mobilized this visit?: Yes - Constitutional Vitals: Temp Pulse Resp BP Pulse Ox 98.4 F 63 17 121/77 93 08/21/18 06:32 08/21/18 06:32 08/21/18 06:32 08/21/18 06:32 08/21/18 06:32 - Patient Status Disposition: Home, Self-Care - Discharge Instructions Follow Up With: Job Sage DO [Primary Care Provider] - 1 week - Diet and Activity Activity: resume usual activities as tolerated Diet: diabetic diet
--- NOTE | 2018-08-21 09:20 | Physician Discharge Referral ---
Home Health/Hosp Referral Info Transfer to: Home Health Attending Provider: Ramiro Provider in Charge Post Discharge: PCP (Job Sage D.O.) - Diagnosis (1) Cellulitis of leg, right Priority: Primary Status: Acute (2) Anemia Priority: Secondary Status: Acute (3) Hypertension Priority: Secondary Status: Chronic (4) Diabetes Priority: Secondary Status: Chronic (5) DVT (deep venous thrombosis) Priority: Secondary Status: Chronic (6) Vitamin D deficiency Priority: Secondary Status: Chronic - Respiratory Orders Smoking Cessation: Smoking cessation has been advised. For more information, call the [place] Tobacco Quit Line at 5-965-GSRO-NOW. - Diet/Nutrition Diet/Nutrition Orders: No Concentrated Sweets - Activity Activity Orders: Walker - Services Needed Following services are medically necessary services: Nursing, Home Health Aide, Physical Therapy, Occupational Therapy - Transfer Medications Prescriptions: Ascorbic Acid [Vitamin C] 500 mg PO 06 #30 tablet Cholecalciferol (D-3) [Vitamin D] 1,000 unit PO DAILY #30 tablet Home Medications: Diltiazem CD (24hr) [Cardizem CD] 240 mg PO BID 07/31/15 [History] hydrOXYzine pamoate [HydrOXYzine Pamoate] 25 - 50 mg PO Q6H PRN 07/31/15 [History] Ferrous Sulfate 325 mg PO BIDWM 03/11/17 [History] Furosemide [Lasix] 40 mg PO BID 03/11/17 [History] Insulin Glargine,Hum.rec.anlog [Toujeo Solostar] 65 unit SQ BID 03/11/17 [History] Melatonin 5 mg PO HS 03/11/17 [History] Methocarbamol [Robaxin] 750 mg PO HS 03/11/17 [History] Dulaglutide [Trulicity] 0.75 mg SQ QWEEK 03/10/18 [History] Montelukast [Singulair] 10 mg PO HS 03/10/18 [History] Oxybutynin [Ditropan] 5 mg PO BID 03/10/18 [History] Rivaroxaban [Xarelto] 10 mg PO DAILY #30 tablet 03/10/18 [Rx] FLUoxetine HCl [Prozac] 40 mg PO DAILY 06/21/18 [History] Insulin LISPRO [HumaLOG] 50 units SQ TIDWM 06/21/18 [History] Omeprazole [PriLOSEC] 40 mg PO DAILY 06/21/18 [History] Promethazine [Phenergan] 25 mg PO Q8H PRN 06/21/18 [History] Acetaminophen [Tylenol] 650 mg PO Q6HR PRN tablet 06/28/18 [Rx] Irbesartan [Avapro] 150 mg PO DAILY 08/06/18 [History] Metformin HCl 1,000 mg PO BID 08/06/18 [History] Nabumetone [Relafen] 500 mg PO DAILY 08/06/18 [History] Oxycodone HCl 15 mg PO BID 08/06/18 [History] Rosuvastatin Calcium 20 mg PO DAILY 08/06/18 [History] Dulaglutide [Trulicity] 1.5 mg SQ WE 08/07/18 [History] Pregabalin [Lyrica] 150 mg PO TID 08/07/18 [History] Atorvastatin [Lipitor] 40 mg PO HS 30 Days #30 tablet 08/12/18 [Rx] Pregabalin [Lyrica] 150 mg PO TID 30 Days #90 capsule 08/12/18 [Rx] Ascorbic Acid [Vitamin C] 500 mg PO 0630 #30 tablet 08/21/18 [Rx] Cholecalciferol (D-3) [Vitamin D] 1,000 unit PO DAILY #30 tablet 08/21/18 [Rx] Allergies/Adverse Reactions: Allergy/AdvReac Type Severity Reaction Status Date / Time Penicillins Allergy Intermediate Rash Verified 03/10/18 13:13 pioglitazone [From Actos] Allergy Intermediate See Verified 03/10/18 13:13 Comments sitagliptin [From Januvia] Allergy Intermediate See Verified 03/10/18 13:13 Comments Sulfa (Sulfonamide Allergy Intermediate Hives Verified 03/10/18 13:13 Antibiotics) nabumetone Allergy Muscle Pain Verified 03/10/18 13:13 sulfamethoxazole Allergy Rash Verified 03/10/18 13:13 [From Bactrim] trimethoprim [From Bactrim] Allergy Rash Verified 03/10/18 13:13 Certification: Further, I certify that my clinical findings support that this patient is homebound (i.e. absences from home require considerable and taxing effort and are for medical reasons or evangelical services or infrequently or short duration when for other reasons) because: Homebound Reason: Leaving home requires considerable and taxing effort due to condition (Impaired walking secondary to cellulitis with wound VAC use.) Attestation: My signature below is to certify that this patient is under my care and that I, or nurse practitioner, or a physician's oncology physician assistant working with me, has a [id number] encounter with this patient.
== END 2018-08-21 16:52 | disposition home or self-care (01) | DRG 603 ==
LOC: INPPIK 19:35
PROVIDERS: ADMIT Internal Medicine; ATTEND Internal Medicine

== ENCOUNTER 2019-07-09 19:03 | Inpatient (IN) ==
[2019-07-10 07:09] LABS: Basophils % 0.3 %; Eosinophils # 0.3 K/mcL (0.0-0.6); Eosinophils % 2.9 %; Hematocrit 23.8 % (35.3-44.9); Hemoglobin 7.8 g/dL (11.5-15.4); Lymphocytes # 0.9 K/mcL (0.6-4.6); Lymphocytes % 9.5 %; Mean Corpuscular HGB Conc 32.8 g/dL (31.6-35.5); Mean Corpuscular Hemoglobin 31.2 pg (28.0-33.3); Mean Corpuscular Volume 95.2 fL (83.0-100.0); Mean Platelet Volume 11.8 fL (9.4-12.4); Neutrophils # 7.1 K/mcL (1.6-8.9); Platelet Count 145 K/mcL (140-400); Red Cell Distribution Width 13.4 % (11.5-14.5); Segmented Neutrophils % 75.3 %; White Blood Count 9.4 K/mcL (4.3-11.1)
[2019-07-10 07:17] LABS: INR 1.5; Prothrombin Time 17.6 Seconds (9.4-12.1)
[2019-07-10 07:19] LABS: Activated Partial Thrombo Time 36.8 Seconds (26.0-36.0)
[2019-07-10 07:25] LABS: BUN/Creatinine Ratio 23 (6-26); Blood Urea Nitrogen 18 mg/dL (6-20); Calcium 8.2 mg/dL (8.6-10.3); Carbon Dioxide 33 mEq/L (23-29); Chloride 100 mEq/L (98-107); Glucose 74 mg/dL (70-105); Osmolality,Calculated 285 (280-300); Potassium 3.7 mEq/L (3.5-5.1); Sodium 137 mEq/L (136-145); eGFR For African Americans > 60 (> 60); eGFR For Non-African Americans > 60 (> 60)
[2019-07-10] MEDS ORDERED: Aspirin 325 MG TABLET PO SCH (09:00)
[2019-07-10] MEDS ORDERED: Ascorbic Acid 500 MG TABLET PO SCH (09:00)
[2019-07-10] MEDS ORDERED: Cholecalciferol (D-3) 1,000 UNIT (25MCG) TABLET PO SCH (09:00)
[2019-07-10] MEDS ORDERED: BuPROPion XL (24 HR) 150 MG TABLET PO SCH (09:00)
[2019-07-10] MEDS ORDERED: Cyanocobalamin (B-12) 1,000 MCG TABLET PO SCH (09:00)
[2019-07-10] MEDS: *HR* OxyCODONE/APAP 5/325 TABLET PO PRN ×2 (09:30→20:50)
[2019-07-10] MEDS: *HR* OxyCODONE Immed Rel 15 MG TABLET PO PRN (17:02)
[2019-07-10] MEDS: *HR* Rivaroxaban 10 MG TABLET PO SCH (17:03)
[2019-07-10] MEDS: Furosemide 40 MG TABLET PO SCH (17:03)
[2019-07-10] MEDS: Acetaminophen 325 MG TABLET PO SCH (17:03)
[2019-07-10] MEDS: hydrOXYzine pamoate 25 MG CAPSULE PO PRN (20:49)
[2019-07-10] MEDS: Melatonin 3 MG TABLET PO SCH (20:49)
[2019-07-10] MEDS: Methocarbamol 500 MG TABLET PO SCH (20:50)
[2019-07-10] MEDS: Insulin DETEMIR 100 UNIT/ML X5UNITS SQ SCH (20:50)
[2019-07-10] MEDS: Pregabalin 75 MG CAPSULE PO SCH (20:50)
[2019-07-11] MEDS: Acetaminophen 325 MG TABLET PO SCH ×4 (00:53→17:39)
[2019-07-11] MEDS: *HR* OxyCODONE Immed Rel 15 MG TABLET PO PRN ×3 (03:37→21:27)
[2019-07-11] MEDS ORDERED: Cholecalciferol (D-3) 1,000 UNIT (25MCG) TABLET PO SCH (09:00)
[2019-07-11 09:11] LABS: % Iron Saturation 22 % (15-50); Iron 38 mcg/dL (50-170); Transferrin 126 mg/dL (203-362)
[2019-07-11] MEDS: FLUoxetine 20 MG CAPSULE PO SCH (09:17)
[2019-07-11] MEDS: Pregabalin 75 MG CAPSULE PO SCH ×3 (09:17→21:19)
[2019-07-11] MEDS: BuPROPion XL (24 HR) 150 MG TABLET PO SCH (09:17)
[2019-07-11] MEDS: *HR* Metformin 500 MG TABLET PO SCH (09:18)
[2019-07-11] MEDS: Furosemide 40 MG TABLET PO SCH ×2 (09:18→17:40)
[2019-07-11] MEDS: Diltiazem CD (24hr) 240 MG CAPSULE PO SCH (09:18)
[2019-07-11] MEDS: Insulin DETEMIR 100 UNIT/ML X5UNITS SQ SCH ×2 (09:18→21:19)
[2019-07-11 09:21] LABS: Estimated Average Glucose 157 mg/dl
[2019-07-11 09:30] LABS: Ferritin 237 ng/mL (10-120)
[2019-07-11 10:00] LABS: Folate 18.3 ng/mL (3.0-16.0)
[2019-07-11] MEDS: hydrOXYzine pamoate 25 MG CAPSULE PO PRN (14:59)
[2019-07-11] MEDS: *HR* Rivaroxaban 10 MG TABLET PO SCH (17:40)
[2019-07-11] MEDS: Melatonin 3 MG TABLET PO SCH (21:19)
[2019-07-11] MEDS: Methocarbamol 500 MG TABLET PO SCH (21:19)
[2019-07-12] MEDS: Acetaminophen 325 MG TABLET PO SCH ×5 (00:06→23:35)
[2019-07-12 07:14] LABS: Basophils % 0.5 %; Eosinophils # 0.4 K/mcL (0.0-0.6); Eosinophils % 4.5 %; Hematocrit 26.6 % (35.3-44.9); Hemoglobin 8.6 g/dL (11.5-15.4); Immature Granulocytes % 1.8 % (0-4); Lymphocytes # 1.5 K/mcL (0.6-4.6); Lymphocytes % 18.5 %; Mean Corpuscular HGB Conc 32.3 g/dL (31.6-35.5); Mean Corpuscular Hemoglobin 31.2 pg (28.0-33.3); Mean Corpuscular Volume 96.4 fL (83.0-100.0); Monocytes # 0.8 K/mcL (0.0-1.3); Monocytes % 9.8 %; Neutrophils # 5.4 K/mcL (1.6-8.9); Nucleated Red Blood Cells 0.2 /100 WBC (0); Platelet Count 213 K/mcL (140-400); Red Blood Count 2.76 M/mcL (3.82-4.97); Red Cell Distribution Width 13.8 % (11.5-14.5); Segmented Neutrophils % 64.9 %; White Blood Count 8.3 K/mcL (4.3-11.1)
[2019-07-12 08:08] LABS: BUN/Creatinine Ratio 22 (6-26); Blood Urea Nitrogen 16 mg/dL (6-20); Calcium 8.6 mg/dL (8.6-10.3); Carbon Dioxide 33 mEq/L (23-29); Chloride 101 mEq/L (98-107); Glucose 148 mg/dL (70-105); Magnesium 1.6 mg/dL (1.6-2.6); Osmolality,Calculated 292 (280-300); Potassium 3.7 mEq/L (3.5-5.1); Sodium 139 mEq/L (136-145); eGFR For African Americans > 60 (> 60); eGFR For Non-African Americans > 60 (> 60)
[2019-07-12] MEDS: Cholecalciferol (D-3) 1,000 UNIT (25MCG) TABLET PO SCH (08:43)
[2019-07-12] MEDS: FLUoxetine 20 MG CAPSULE PO SCH (08:43)
[2019-07-12] MEDS: *HR* OxyCODONE Immed Rel 15 MG TABLET PO PRN ×2 (08:43→16:59)
[2019-07-12] MEDS: *HR* Metformin 500 MG TABLET PO SCH (08:44)
[2019-07-12] MEDS: Pregabalin 75 MG CAPSULE PO SCH ×3 (08:44→21:08)
[2019-07-12] MEDS: Furosemide 40 MG TABLET PO SCH ×2 (08:44→16:17)
[2019-07-12] MEDS: BuPROPion XL (24 HR) 150 MG TABLET PO SCH (08:44)
[2019-07-12] MEDS: Diltiazem CD (24hr) 240 MG CAPSULE PO SCH (08:44)
[2019-07-12] MEDS: Insulin DETEMIR 100 UNIT/ML X5UNITS SQ SCH ×2 (08:54→21:09)
[2019-07-12] MEDS: *HR* Rivaroxaban 10 MG TABLET PO SCH (16:18)
[2019-07-12] MEDS: Methocarbamol 500 MG TABLET PO SCH (21:08)
[2019-07-12] MEDS: Melatonin 3 MG TABLET PO SCH (21:08)
[2019-07-13] MEDS: *HR* OxyCODONE Immed Rel 15 MG TABLET PO PRN ×3 (03:00→22:10)
[2019-07-13] MEDS: Acetaminophen 325 MG TABLET PO SCH ×4 (05:11→23:33)
[2019-07-13] MEDS: FLUoxetine 20 MG CAPSULE PO SCH (07:39)
[2019-07-13] MEDS: Cholecalciferol (D-3) 1,000 UNIT (25MCG) TABLET PO SCH (07:39)
[2019-07-13] MEDS: Diltiazem CD (24hr) 240 MG CAPSULE PO SCH (07:39)
[2019-07-13] MEDS: Pregabalin 75 MG CAPSULE PO SCH ×3 (07:40→22:10)
[2019-07-13] MEDS: Furosemide 40 MG TABLET PO SCH ×2 (07:40→15:13)
[2019-07-13] MEDS: Insulin LISPRO 300 UNITS/3 ML VIAL SQ SCH ×4 (07:40→22:11)
[2019-07-13] MEDS: BuPROPion XL (24 HR) 150 MG TABLET PO SCH (07:40)
[2019-07-13] MEDS: *HR* Metformin 500 MG TABLET PO SCH (07:40)
[2019-07-13] MEDS: Insulin DETEMIR 100 UNIT/ML X5UNITS SQ SCH ×2 (08:48→22:13)
[2019-07-13] MEDS ORDERED: Cyanocobalamin (B-12) 1,000 MCG/ML VIAL IM ONE (14:36)
[2019-07-13] MEDS: *HR* Rivaroxaban 10 MG TABLET PO SCH (17:15)
[2019-07-13] MEDS: Methocarbamol 500 MG TABLET PO SCH (22:10)
[2019-07-13] MEDS: Melatonin 3 MG TABLET PO SCH (22:10)
[2019-07-14] MEDS: Acetaminophen 325 MG TABLET PO SCH ×4 (06:02→23:41)
[2019-07-14] MEDS: Furosemide 40 MG TABLET PO SCH ×2 (06:02→15:39)
[2019-07-14] MEDS: Pregabalin 75 MG CAPSULE PO SCH ×3 (08:39→21:37)
[2019-07-14] MEDS: BuPROPion XL (24 HR) 150 MG TABLET PO SCH (08:39)
[2019-07-14] MEDS: Diltiazem CD (24hr) 240 MG CAPSULE PO SCH (08:39)
[2019-07-14] MEDS: Cholecalciferol (D-3) 1,000 UNIT (25MCG) TABLET PO SCH (08:39)
[2019-07-14] MEDS: *HR* OxyCODONE Immed Rel 15 MG TABLET PO PRN ×2 (08:40→18:13)
[2019-07-14] MEDS: Cyanocobalamin (B-12) 1,000 MCG TABLET PO SCH (08:40)
[2019-07-14] MEDS: FLUoxetine 20 MG CAPSULE PO SCH (08:40)
[2019-07-14] MEDS: *HR* Metformin 500 MG TABLET PO SCH (08:41)
[2019-07-14] MEDS: Insulin DETEMIR 100 UNIT/ML X5UNITS SQ SCH ×2 (08:45→21:38)
[2019-07-14] MEDS: Insulin LISPRO 300 UNITS/3 ML VIAL SQ SCH ×4 (12:48→21:38)
[2019-07-14] MEDS: *HR* Rivaroxaban 10 MG TABLET PO SCH (18:13)
[2019-07-14] MEDS: Melatonin 3 MG TABLET PO SCH (21:37)
[2019-07-14] MEDS: Methocarbamol 500 MG TABLET PO SCH (21:37)
[2019-07-14] MEDS: hydrOXYzine pamoate 25 MG CAPSULE PO PRN (22:26)
[2019-07-15] MEDS: Acetaminophen 325 MG TABLET PO SCH ×4 (05:47→23:23)
[2019-07-15] MEDS: Furosemide 40 MG TABLET PO SCH ×2 (05:47→17:19)
[2019-07-15] MEDS: *HR* OxyCODONE Immed Rel 15 MG TABLET PO PRN ×3 (05:47→23:23)
[2019-07-15] MEDS: Insulin LISPRO 300 UNITS/3 ML VIAL SQ SCH ×4 (07:42→21:01)
[2019-07-15] MEDS: FLUoxetine 20 MG CAPSULE PO SCH (08:17)
[2019-07-15] MEDS: Diltiazem CD (24hr) 240 MG CAPSULE PO SCH (08:17)
[2019-07-15] MEDS: Cholecalciferol (D-3) 1,000 UNIT (25MCG) TABLET PO SCH (08:18)
[2019-07-15] MEDS: *HR* Metformin 500 MG TABLET PO SCH (08:18)
[2019-07-15] MEDS: Pregabalin 75 MG CAPSULE PO SCH ×3 (08:18→21:00)
[2019-07-15] MEDS: Cyanocobalamin (B-12) 1,000 MCG TABLET PO SCH (08:18)
[2019-07-15] MEDS: BuPROPion XL (24 HR) 150 MG TABLET PO SCH (08:19)
[2019-07-15] MEDS: Insulin DETEMIR 100 UNIT/ML X5UNITS SQ SCH ×2 (08:19→21:00)
[2019-07-15] MEDS: MOM Conc 10 ML UD.LIQ PO SCH (17:19)
[2019-07-15] MEDS: *HR* Rivaroxaban 10 MG TABLET PO SCH (17:19)
[2019-07-15] MEDS: Methocarbamol 500 MG TABLET PO SCH (20:59)
[2019-07-15] MEDS: Melatonin 3 MG TABLET PO SCH (21:00)
[2019-07-15] MEDS: hydrOXYzine pamoate 25 MG CAPSULE PO PRN (21:00)
[2019-07-16] MEDS: Acetaminophen 325 MG TABLET PO SCH ×3 (06:05→16:59)
[2019-07-16] MEDS: Furosemide 40 MG TABLET PO SCH ×2 (06:05→14:25)
[2019-07-16 06:07] LABS: Basophils # 0.1 K/mcL (0.0-0.2); Basophils % 0.6 %; Eosinophils # 0.3 K/mcL (0.0-0.6); Eosinophils % 3.8 %; Hematocrit 26.2 % (35.3-44.9); Hemoglobin 8.3 g/dL (11.5-15.4); Immature Granulocytes % 2.5 % (0-4); Lymphocytes # 1.1 K/mcL (0.6-4.6); Lymphocytes % 14.2 %; Mean Corpuscular HGB Conc 31.7 g/dL (31.6-35.5); Mean Corpuscular Hemoglobin 31.1 pg (28.0-33.3); Mean Corpuscular Volume 98.1 fL (83.0-100.0); Mean Platelet Volume 10.8 fL (9.4-12.4); Monocytes # 0.9 K/mcL (0.0-1.3); Monocytes % 10.7 %; Neutrophils # 5.5 K/mcL (1.6-8.9); Platelet Count 258 K/mcL (140-400); Red Blood Count 2.67 M/mcL (3.82-4.97); Red Cell Distribution Width 14.5 % (11.5-14.5); Segmented Neutrophils % 68.2 %
[2019-07-16 06:27] LABS: BUN/Creatinine Ratio 23 (6-26); Blood Urea Nitrogen 16 mg/dL (6-20); Calcium 8.8 mg/dL (8.6-10.3); Carbon Dioxide 33 mEq/L (23-29); Chloride 100 mEq/L (98-107); Glucose 167 mg/dL (70-105); Osmolality,Calculated 291 (280-300); Potassium 3.5 mEq/L (3.5-5.1); Sodium 138 mEq/L (136-145); eGFR For African Americans > 60 (> 60); eGFR For Non-African Americans > 60 (> 60)
[2019-07-16] MEDS: Insulin LISPRO 300 UNITS/3 ML VIAL SQ SCH ×4 (07:57→21:36)
[2019-07-16] MEDS: Cholecalciferol (D-3) 1,000 UNIT (25MCG) TABLET PO SCH (08:23)
[2019-07-16] MEDS: FLUoxetine 20 MG CAPSULE PO SCH (08:23)
[2019-07-16] MEDS: *HR* Metformin 500 MG TABLET PO SCH (08:24)
[2019-07-16] MEDS: Pregabalin 75 MG CAPSULE PO SCH ×3 (08:24→21:37)
[2019-07-16] MEDS: BuPROPion XL (24 HR) 150 MG TABLET PO SCH (08:24)
[2019-07-16] MEDS: Cyanocobalamin (B-12) 1,000 MCG TABLET PO SCH (08:24)
[2019-07-16] MEDS: Diltiazem CD (24hr) 240 MG CAPSULE PO SCH (08:24)
[2019-07-16] MEDS: Insulin DETEMIR 100 UNIT/ML X5UNITS SQ SCH ×2 (08:27→21:37)
[2019-07-16] MEDS: *HR* OxyCODONE Immed Rel 15 MG TABLET PO PRN ×3 (08:32→21:08)
[2019-07-16] MEDS: cephALEXin 500 MG CAPSULE PO SCH (21:07)
[2019-07-16] MEDS: Melatonin 3 MG TABLET PO SCH (21:07)
[2019-07-16] MEDS: Methocarbamol 500 MG TABLET PO SCH (21:08)
[2019-07-17] MEDS: Acetaminophen 325 MG TABLET PO SCH ×4 (00:14→17:16)
[2019-07-17] MEDS: *HR* OxyCODONE Immed Rel 15 MG TABLET PO PRN ×5 (01:31→20:28)
[2019-07-17] MEDS: hydrOXYzine pamoate 25 MG CAPSULE PO PRN ×3 (02:12→16:07)
[2019-07-17] MEDS: Furosemide 40 MG TABLET PO SCH ×2 (06:15→15:09)
[2019-07-17] MEDS: Cholecalciferol (D-3) 1,000 UNIT (25MCG) TABLET PO SCH (10:07)
[2019-07-17] MEDS: cephALEXin 500 MG CAPSULE PO SCH ×4 (10:07→20:29)
[2019-07-17] MEDS: FLUoxetine 20 MG CAPSULE PO SCH (10:07)
[2019-07-17] MEDS: BuPROPion XL (24 HR) 150 MG TABLET PO SCH (10:08)
[2019-07-17] MEDS: Pregabalin 75 MG CAPSULE PO SCH ×3 (10:08→20:29)
[2019-07-17] MEDS: Insulin LISPRO 300 UNITS/3 ML VIAL SQ SCH ×4 (10:09→20:33)
[2019-07-17] MEDS: Cyanocobalamin (B-12) 1,000 MCG TABLET PO SCH (10:09)
[2019-07-17] MEDS: Diltiazem CD (24hr) 240 MG CAPSULE PO SCH (10:09)
[2019-07-17] MEDS: *HR* Metformin 500 MG TABLET PO SCH (10:09)
[2019-07-17] MEDS: Insulin DETEMIR 100 UNIT/ML X5UNITS SQ SCH ×2 (10:10→20:30)
[2019-07-17] MEDS: MOM Conc 10 ML UD.LIQ PO SCH (15:08)
[2019-07-17] MEDS: Methocarbamol 500 MG TABLET PO SCH (20:27)
[2019-07-17] MEDS: Melatonin 3 MG TABLET PO SCH (20:29)
[2019-07-18] MEDS: Acetaminophen 325 MG TABLET PO SCH ×4 (00:23→18:48)
[2019-07-18] MEDS: *HR* OxyCODONE Immed Rel 15 MG TABLET PO PRN ×3 (03:38→12:17)
[2019-07-18] MEDS: hydrOXYzine pamoate 25 MG CAPSULE PO PRN (04:44)
[2019-07-18] MEDS: Furosemide 40 MG TABLET PO SCH ×2 (06:44→15:17)
[2019-07-18 07:38] LABS: Basophils # 0.1 K/mcL (0.0-0.2); Basophils % 0.7 %; Eosinophils # 0.3 K/mcL (0.0-0.6); Eosinophils % 3.7 %; Hematocrit 27.5 % (35.3-44.9); Hemoglobin 8.5 g/dL (11.5-15.4); Immature Granulocytes % 1.4 % (0-4); Lymphocytes # 1.5 K/mcL (0.6-4.6); Mean Corpuscular HGB Conc 30.9 g/dL (31.6-35.5); Mean Corpuscular Hemoglobin 30.6 pg (28.0-33.3); Mean Corpuscular Volume 98.9 fL (83.0-100.0); Mean Platelet Volume 10.5 fL (9.4-12.4); Monocytes # 0.9 K/mcL (0.0-1.3); Monocytes % 10.2 %; Neutrophils # 5.6 K/mcL (1.6-8.9); Platelet Count 258 K/mcL (140-400); Red Blood Count 2.78 M/mcL (3.82-4.97); Red Cell Distribution Width 14.4 % (11.5-14.5); White Blood Count 8.4 K/mcL (4.3-11.1)
[2019-07-18 07:51] LABS: BUN/Creatinine Ratio 20 (6-26); Blood Urea Nitrogen 17 mg/dL (6-20); Calcium 8.6 mg/dL (8.6-10.3); Carbon Dioxide 33 mEq/L (23-29); Chloride 98 mEq/L (98-107); Glucose 148 mg/dL (70-105); Osmolality,Calculated 286 (280-300); Potassium 4.1 mEq/L (3.5-5.1); Sodium 136 mEq/L (136-145); eGFR For African Americans > 60 (> 60); eGFR For Non-African Americans > 60 (> 60)
[2019-07-18] MEDS: FLUoxetine 20 MG CAPSULE PO SCH (08:29)
[2019-07-18] MEDS: Cholecalciferol (D-3) 1,000 UNIT (25MCG) TABLET PO SCH (08:29)
[2019-07-18] MEDS: Pregabalin 75 MG CAPSULE PO SCH ×3 (08:29→20:37)
[2019-07-18] MEDS: BuPROPion XL (24 HR) 150 MG TABLET PO SCH (08:29)
[2019-07-18] MEDS: Diltiazem CD (24hr) 240 MG CAPSULE PO SCH (08:30)
[2019-07-18] MEDS: Cyanocobalamin (B-12) 1,000 MCG TABLET PO SCH (08:30)
[2019-07-18] MEDS: Insulin DETEMIR 100 UNIT/ML X5UNITS SQ SCH ×2 (08:30→20:39)
[2019-07-18] MEDS: *HR* Metformin 500 MG TABLET PO SCH (08:30)
[2019-07-18] MEDS: Insulin LISPRO 300 UNITS/3 ML VIAL SQ SCH ×4 (08:31→20:38)
[2019-07-18] MEDS: cephALEXin 500 MG CAPSULE PO SCH ×4 (08:37→20:37)
[2019-07-18] MEDS: Methocarbamol 500 MG TABLET PO SCH (20:37)
[2019-07-18] MEDS: Melatonin 3 MG TABLET PO SCH (20:37)
[2019-07-19] MEDS: Acetaminophen 325 MG TABLET PO SCH ×5 (00:14→23:36)
[2019-07-19] MEDS: *HR* OxyCODONE Immed Rel 15 MG TABLET PO PRN ×5 (01:08→21:45)
[2019-07-19] MEDS: Pregabalin 75 MG CAPSULE PO SCH ×3 (06:50→20:41)
[2019-07-19] MEDS: *HR* Metformin 500 MG TABLET PO SCH (06:50)
[2019-07-19] MEDS: Cyanocobalamin (B-12) 1,000 MCG TABLET PO SCH (06:50)
[2019-07-19] MEDS: cephALEXin 500 MG CAPSULE PO SCH ×4 (06:50→20:41)
[2019-07-19] MEDS: FLUoxetine 20 MG CAPSULE PO SCH (06:51)
[2019-07-19] MEDS: BuPROPion XL (24 HR) 150 MG TABLET PO SCH (06:51)
[2019-07-19] MEDS: Cholecalciferol (D-3) 1,000 UNIT (25MCG) TABLET PO SCH (06:51)
[2019-07-19] MEDS: Diltiazem CD (24hr) 240 MG CAPSULE PO SCH (06:51)
[2019-07-19] MEDS: Insulin LISPRO 300 UNITS/3 ML VIAL SQ SCH ×4 (07:14→20:42)
[2019-07-19] MEDS: Insulin DETEMIR 100 UNIT/ML X5UNITS SQ SCH ×2 (07:29→20:42)
[2019-07-19] MEDS: Furosemide 40 MG TABLET PO SCH ×2 (12:49→15:41)
[2019-07-19] MEDS: MOM Conc 10 ML UD.LIQ PO SCH (15:41)
[2019-07-19] MEDS: *HR* Rivaroxaban 10 MG TABLET PO SCH (17:20)
[2019-07-19] MEDS: Methocarbamol 500 MG TABLET PO SCH (20:41)
[2019-07-19] MEDS: Melatonin 3 MG TABLET PO SCH (20:41)
[2019-07-19] MEDS: hydrOXYzine pamoate 25 MG CAPSULE PO PRN (20:41)
[2019-07-20] MEDS: Acetaminophen 325 MG TABLET PO SCH ×4 (06:02→23:06)
[2019-07-20] MEDS: Furosemide 40 MG TABLET PO SCH ×2 (06:02→14:40)
[2019-07-20] MEDS: hydrOXYzine pamoate 25 MG CAPSULE PO PRN ×3 (06:04→23:07)
[2019-07-20] MEDS: cephALEXin 500 MG CAPSULE PO SCH ×4 (07:59→19:51)
[2019-07-20] MEDS: FLUoxetine 20 MG CAPSULE PO SCH (07:59)
[2019-07-20] MEDS: Pregabalin 75 MG CAPSULE PO SCH ×3 (07:59→19:45)
[2019-07-20] MEDS: BuPROPion XL (24 HR) 150 MG TABLET PO SCH (07:59)
[2019-07-20] MEDS: Insulin DETEMIR 100 UNIT/ML X5UNITS SQ SCH ×2 (07:59→19:51)
[2019-07-20] MEDS: Cyanocobalamin (B-12) 1,000 MCG TABLET PO SCH (07:59)
[2019-07-20] MEDS: Diltiazem CD (24hr) 240 MG CAPSULE PO SCH (08:00)
[2019-07-20] MEDS: Cholecalciferol (D-3) 1,000 UNIT (25MCG) TABLET PO SCH (08:00)
[2019-07-20] MEDS: Insulin LISPRO 300 UNITS/3 ML VIAL SQ SCH ×4 (08:00→19:51)
[2019-07-20] MEDS: *HR* Metformin 500 MG TABLET PO SCH (08:00)
[2019-07-20] MEDS: *HR* OxyCODONE Immed Rel 15 MG TABLET PO PRN ×3 (08:00→19:45)
[2019-07-20] MEDS: *HR* Rivaroxaban 10 MG TABLET PO SCH (17:02)
[2019-07-20] MEDS: Methocarbamol 500 MG TABLET PO SCH (19:45)
[2019-07-20] MEDS: Melatonin 3 MG TABLET PO SCH (19:47)
[2019-07-21] MEDS: Furosemide 40 MG TABLET PO SCH ×2 (05:36→15:35)
[2019-07-21] MEDS: Acetaminophen 325 MG TABLET PO SCH ×3 (05:36→17:52)
[2019-07-21] MEDS: *HR* OxyCODONE Immed Rel 15 MG TABLET PO PRN ×4 (05:36→21:26)
[2019-07-21] MEDS: Insulin LISPRO 300 UNITS/3 ML VIAL SQ SCH ×4 (07:31→21:28)
[2019-07-21] MEDS: FLUoxetine 20 MG CAPSULE PO SCH (08:13)
[2019-07-21] MEDS: cephALEXin 500 MG CAPSULE PO SCH ×4 (08:13→21:27)
[2019-07-21] MEDS: Diltiazem CD (24hr) 240 MG CAPSULE PO SCH (08:14)
[2019-07-21] MEDS: BuPROPion XL (24 HR) 150 MG TABLET PO SCH (08:14)
[2019-07-21] MEDS: *HR* Metformin 500 MG TABLET PO SCH (08:14)
[2019-07-21] MEDS: Pregabalin 75 MG CAPSULE PO SCH ×3 (08:14→21:27)
[2019-07-21] MEDS: Cholecalciferol (D-3) 1,000 UNIT (25MCG) TABLET PO SCH (08:14)
[2019-07-21] MEDS: Insulin DETEMIR 100 UNIT/ML X5UNITS SQ SCH ×2 (08:14→21:27)
[2019-07-21] MEDS: Cyanocobalamin (B-12) 1,000 MCG TABLET PO SCH (08:14)
[2019-07-21] MEDS: *HR* Rivaroxaban 10 MG TABLET PO SCH (15:35)
[2019-07-21] MEDS: MOM Conc 10 ML UD.LIQ PO SCH (15:36)
[2019-07-21] MEDS: Methocarbamol 500 MG TABLET PO SCH (21:27)
[2019-07-21] MEDS: hydrOXYzine pamoate 25 MG CAPSULE PO PRN (21:27)
[2019-07-21] MEDS: Melatonin 3 MG TABLET PO SCH (21:27)
[2019-07-22] MEDS: *HR* OxyCODONE Immed Rel 15 MG TABLET PO PRN ×6 (01:45→22:23)
[2019-07-22] MEDS: Acetaminophen 325 MG TABLET PO SCH ×5 (01:46→22:20)
[2019-07-22] MEDS: Furosemide 40 MG TABLET PO SCH ×2 (06:45→14:48)
[2019-07-22] MEDS: Insulin DETEMIR 100 UNIT/ML X5UNITS SQ SCH ×2 (09:57→22:31)
[2019-07-22] MEDS: BuPROPion XL (24 HR) 150 MG TABLET PO SCH (10:02)
[2019-07-22] MEDS: FLUoxetine 20 MG CAPSULE PO SCH (10:02)
[2019-07-22] MEDS: Cyanocobalamin (B-12) 1,000 MCG TABLET PO SCH (10:03)
[2019-07-22] MEDS: Pregabalin 75 MG CAPSULE PO SCH ×3 (10:03→22:22)
[2019-07-22] MEDS: cephALEXin 500 MG CAPSULE PO SCH ×4 (10:03→22:22)
[2019-07-22] MEDS: Diltiazem CD (24hr) 240 MG CAPSULE PO SCH (10:03)
[2019-07-22] MEDS: Cholecalciferol (D-3) 1,000 UNIT (25MCG) TABLET PO SCH (10:03)
[2019-07-22] MEDS: Insulin LISPRO 300 UNITS/3 ML VIAL SQ SCH ×4 (10:04→22:33)
[2019-07-22] MEDS: *HR* Metformin 500 MG TABLET PO SCH (10:04)
[2019-07-22] MEDS: *HR* Rivaroxaban 10 MG TABLET PO SCH (15:50)
[2019-07-22] MEDS: Methocarbamol 500 MG TABLET PO SCH (22:20)
[2019-07-22] MEDS: Melatonin 3 MG TABLET PO SCH (22:21)
[2019-07-22] MEDS: hydrOXYzine pamoate 25 MG CAPSULE PO PRN (22:28)
[2019-07-23] MEDS: Acetaminophen 325 MG TABLET PO SCH ×4 (06:29→23:13)
[2019-07-23] MEDS: *HR* OxyCODONE Immed Rel 15 MG TABLET PO PRN ×4 (06:33→21:01)
[2019-07-23] MEDS: Furosemide 40 MG TABLET PO SCH ×2 (06:40→16:20)
[2019-07-23] MEDS: *HR* Metformin 500 MG TABLET PO SCH (10:43)
[2019-07-23] MEDS: BuPROPion XL (24 HR) 150 MG TABLET PO SCH (10:43)
[2019-07-23] MEDS: Pregabalin 75 MG CAPSULE PO SCH ×3 (10:43→21:01)
[2019-07-23] MEDS: FLUoxetine 20 MG CAPSULE PO SCH (10:43)
[2019-07-23] MEDS: Cyanocobalamin (B-12) 1,000 MCG TABLET PO SCH (10:43)
[2019-07-23] MEDS: Diltiazem CD (24hr) 240 MG CAPSULE PO SCH (10:43)
[2019-07-23] MEDS: cephALEXin 500 MG CAPSULE PO SCH ×4 (10:44→21:04)
[2019-07-23] MEDS: Cholecalciferol (D-3) 1,000 UNIT (25MCG) TABLET PO SCH (10:44)
[2019-07-23] MEDS: Insulin DETEMIR 100 UNIT/ML X5UNITS SQ SCH ×2 (10:44→21:02)
[2019-07-23] MEDS: Insulin LISPRO 300 UNITS/3 ML VIAL SQ SCH ×4 (10:46→21:02)
[2019-07-23] MEDS: *HR* Rivaroxaban 10 MG TABLET PO SCH (16:16)
[2019-07-23] MEDS: MOM Conc 10 ML UD.LIQ PO SCH (16:16)
[2019-07-23] MEDS: hydrOXYzine pamoate 25 MG CAPSULE PO PRN (21:01)
[2019-07-23] MEDS: Methocarbamol 500 MG TABLET PO SCH (21:01)
[2019-07-23] MEDS: Melatonin 3 MG TABLET PO SCH (21:02)
[2019-07-24] MEDS: *HR* OxyCODONE Immed Rel 15 MG TABLET PO PRN ×4 (05:51→20:12)
[2019-07-24] MEDS: Acetaminophen 325 MG TABLET PO SCH ×3 (05:51→17:06)
[2019-07-24] MEDS: Furosemide 40 MG TABLET PO SCH ×2 (05:52→15:39)
[2019-07-24] MEDS: FLUoxetine 20 MG CAPSULE PO SCH (07:59)
[2019-07-24] MEDS: *HR* Metformin 500 MG TABLET PO SCH (07:59)
[2019-07-24] MEDS: BuPROPion XL (24 HR) 150 MG TABLET PO SCH (07:59)
[2019-07-24] MEDS: Cholecalciferol (D-3) 1,000 UNIT (25MCG) TABLET PO SCH (07:59)
[2019-07-24] MEDS: Pregabalin 75 MG CAPSULE PO SCH ×3 (08:00→20:12)
[2019-07-24] MEDS: Insulin DETEMIR 100 UNIT/ML X5UNITS SQ SCH ×2 (08:00→20:28)
[2019-07-24] MEDS: Cyanocobalamin (B-12) 1,000 MCG TABLET PO SCH (08:00)
[2019-07-24] MEDS: Diltiazem CD (24hr) 240 MG CAPSULE PO SCH (08:00)
[2019-07-24] MEDS: Insulin LISPRO 300 UNITS/3 ML VIAL SQ SCH ×4 (08:01→20:33)
[2019-07-24] MEDS: cephALEXin 500 MG CAPSULE PO SCH ×4 (08:02→20:12)
[2019-07-24] MEDS: *HR* Rivaroxaban 10 MG TABLET PO SCH (15:38)
[2019-07-24] MEDS: Methocarbamol 500 MG TABLET PO SCH (20:10)
[2019-07-24] MEDS: Melatonin 3 MG TABLET PO SCH (20:12)
[2019-07-24] MEDS: hydrOXYzine pamoate 25 MG CAPSULE PO PRN (20:28)
[2019-07-25] MEDS: Acetaminophen 325 MG TABLET PO SCH ×5 (00:14→23:00)
[2019-07-25] MEDS: *HR* OxyCODONE Immed Rel 15 MG TABLET PO PRN ×5 (00:14→19:53)
[2019-07-25 05:40] LABS: Basophils # 0.1 K/mcL (0.0-0.2); Eosinophils # 0.3 K/mcL (0.0-0.6); Eosinophils % 3.9 %; Hematocrit 27.4 % (35.3-44.9); Hemoglobin 8.6 g/dL (11.5-15.4); Immature Granulocytes % 0.4 % (0-4); Lymphocytes # 1.3 K/mcL (0.6-4.6); Lymphocytes % 18.6 %; Mean Corpuscular HGB Conc 31.4 g/dL (31.6-35.5); Mean Corpuscular Hemoglobin 31.3 pg (28.0-33.3); Mean Corpuscular Volume 99.6 fL (83.0-100.0); Mean Platelet Volume 11.5 fL (9.4-12.4); Monocytes # 0.8 K/mcL (0.0-1.3); Monocytes % 10.8 %; Neutrophils # 4.5 K/mcL (1.6-8.9); Platelet Count 208 K/mcL (140-400); Red Blood Count 2.75 M/mcL (3.82-4.97); Red Cell Distribution Width 14.6 % (11.5-14.5); Segmented Neutrophils % 65.3 %
[2019-07-25] MEDS: Furosemide 40 MG TABLET PO SCH ×2 (06:54→15:38)
[2019-07-25] MEDS: Insulin LISPRO 300 UNITS/3 ML VIAL SQ SCH ×4 (07:39→20:10)
[2019-07-25 08:53] LABS: % Iron Saturation 13 % (15-50); Iron 35 mcg/dL (50-170); Transferrin 186 mg/dL (203-362)
[2019-07-25 09:07] LABS: Ferritin 159 ng/mL (10-120)
[2019-07-25] MEDS: Diltiazem CD (24hr) 240 MG CAPSULE PO SCH (10:00)
[2019-07-25] MEDS: *HR* Metformin 500 MG TABLET PO SCH (10:00)
[2019-07-25 10:31] LABS: Vitamin B12 580 pg/mL (250-1100)
[2019-07-25 10:36] LABS: Vitamin D 25 Hydroxy 20 ng/mL (30-80)
[2019-07-25] MEDS: Cholecalciferol (D-3) 1,000 UNIT (25MCG) TABLET PO SCH (11:38)
[2019-07-25] MEDS: cephALEXin 500 MG CAPSULE PO SCH ×4 (11:38→20:18)
[2019-07-25] MEDS: Pregabalin 75 MG CAPSULE PO SCH ×3 (11:38→20:09)
[2019-07-25] MEDS: Cyanocobalamin (B-12) 1,000 MCG TABLET PO SCH (11:38)
[2019-07-25] MEDS: Insulin DETEMIR 100 UNIT/ML X5UNITS SQ SCH ×2 (11:38→20:10)
[2019-07-25] MEDS: FLUoxetine 20 MG CAPSULE PO SCH (11:38)
[2019-07-25] MEDS: BuPROPion XL (24 HR) 150 MG TABLET PO SCH (11:39)
[2019-07-25] MEDS: MOM Conc 10 ML UD.LIQ PO SCH (15:38)
[2019-07-25] MEDS: *HR* Rivaroxaban 10 MG TABLET PO SCH (18:06)
[2019-07-25] MEDS: Methocarbamol 500 MG TABLET PO SCH (20:09)
[2019-07-25] MEDS: Melatonin 3 MG TABLET PO SCH (20:09)
[2019-07-25] MEDS: hydrOXYzine pamoate 25 MG CAPSULE PO PRN (20:09)
[2019-07-26] MEDS: Acetaminophen 325 MG TABLET PO SCH ×3 (05:45→17:56)
[2019-07-26] MEDS: Furosemide 40 MG TABLET PO SCH ×2 (05:46→14:27)
[2019-07-26] MEDS: Insulin LISPRO 300 UNITS/3 ML VIAL SQ SCH ×4 (07:35→20:50)
[2019-07-26] MEDS: *HR* OxyCODONE Immed Rel 15 MG TABLET PO PRN ×4 (07:49→20:48)
[2019-07-26] MEDS: Cholecalciferol (D-3) 1,000 UNIT (25MCG) TABLET PO SCH (07:49)
[2019-07-26] MEDS: Cyanocobalamin (B-12) 1,000 MCG TABLET PO SCH (07:49)
[2019-07-26] MEDS: FLUoxetine 20 MG CAPSULE PO SCH (07:49)
[2019-07-26] MEDS: Pregabalin 75 MG CAPSULE PO SCH ×3 (07:50→20:49)
[2019-07-26] MEDS: BuPROPion XL (24 HR) 150 MG TABLET PO SCH (07:50)
[2019-07-26] MEDS: Diltiazem CD (24hr) 240 MG CAPSULE PO SCH (07:50)
[2019-07-26] MEDS: *HR* Metformin 500 MG TABLET PO SCH (07:50)
[2019-07-26] MEDS: cephALEXin 500 MG CAPSULE PO SCH ×4 (07:51→21:08)
[2019-07-26] MEDS: Insulin DETEMIR 100 UNIT/ML X5UNITS SQ SCH ×2 (08:04→20:49)
[2019-07-26] MEDS: hydrOXYzine pamoate 25 MG CAPSULE PO PRN ×2 (12:04→17:58)
[2019-07-26] MEDS: *HR* Rivaroxaban 10 MG TABLET PO SCH (17:56)
[2019-07-26] MEDS: Methocarbamol 500 MG TABLET PO SCH (20:48)
[2019-07-26] MEDS: Melatonin 3 MG TABLET PO SCH (20:49)
[2019-07-27] MEDS: Acetaminophen 325 MG TABLET PO SCH ×4 (01:10→17:34)
[2019-07-27] MEDS: *HR* OxyCODONE Immed Rel 15 MG TABLET PO PRN ×5 (03:06→21:35)
[2019-07-27] MEDS: hydrOXYzine pamoate 25 MG CAPSULE PO PRN ×4 (03:06→21:34)
[2019-07-27] MEDS: Furosemide 40 MG TABLET PO SCH ×2 (06:50→14:58)
[2019-07-27] MEDS: BuPROPion XL (24 HR) 150 MG TABLET PO SCH (08:35)
[2019-07-27] MEDS: FLUoxetine 20 MG CAPSULE PO SCH (08:35)
[2019-07-27] MEDS: Cyanocobalamin (B-12) 1,000 MCG TABLET PO SCH (08:35)
[2019-07-27] MEDS: Diltiazem CD (24hr) 240 MG CAPSULE PO SCH (08:35)
[2019-07-27] MEDS: Insulin DETEMIR 100 UNIT/ML X5UNITS SQ SCH ×2 (08:35→20:50)
[2019-07-27] MEDS: *HR* Metformin 500 MG TABLET PO SCH (08:35)
[2019-07-27] MEDS: Cholecalciferol (D-3) 1,000 UNIT (25MCG) TABLET PO SCH (08:35)
[2019-07-27] MEDS: cephALEXin 500 MG CAPSULE PO SCH ×4 (08:35→20:48)
[2019-07-27] MEDS: Pregabalin 75 MG CAPSULE PO SCH ×3 (08:35→20:48)
[2019-07-27] MEDS: Insulin LISPRO 300 UNITS/3 ML VIAL SQ SCH ×4 (08:51→20:50)
[2019-07-27] MEDS: MOM Conc 10 ML UD.LIQ PO SCH (14:58)
[2019-07-27] MEDS: *HR* Rivaroxaban 10 MG TABLET PO SCH (17:34)
[2019-07-27] MEDS ORDERED: Mag Hydrox/Al Hydrox/Simeth 30 ML UDC PO PRN (18:05)
[2019-07-27] MEDS: Methocarbamol 500 MG TABLET PO SCH (20:49)
[2019-07-27] MEDS: Melatonin 3 MG TABLET PO SCH (20:50)
[2019-07-28] MEDS: Acetaminophen 325 MG TABLET PO SCH ×5 (00:30→23:40)
[2019-07-28] MEDS: Ascorbic Acid 500 MG TABLET PO SCH (06:23)
[2019-07-28] MEDS: Furosemide 40 MG TABLET PO SCH ×2 (06:40→14:28)
[2019-07-28] MEDS: *HR* OxyCODONE Immed Rel 15 MG TABLET PO PRN ×4 (06:41→21:24)
[2019-07-28] MEDS: Insulin LISPRO 300 UNITS/3 ML VIAL SQ SCH ×4 (08:28→21:28)
[2019-07-28] MEDS: Cyanocobalamin (B-12) 1,000 MCG TABLET PO SCH (08:39)
[2019-07-28] MEDS: Pregabalin 75 MG CAPSULE PO SCH ×3 (08:39→21:23)
[2019-07-28] MEDS: BuPROPion XL (24 HR) 150 MG TABLET PO SCH (08:39)
[2019-07-28] MEDS: FLUoxetine 20 MG CAPSULE PO SCH (08:39)
[2019-07-28] MEDS: *HR* Metformin 500 MG TABLET PO SCH (08:39)
[2019-07-28] MEDS: Cholecalciferol (D-3) 1,000 UNIT (25MCG) TABLET PO SCH (08:40)
[2019-07-28] MEDS: cephALEXin 500 MG CAPSULE PO SCH ×4 (08:40→21:23)
[2019-07-28] MEDS: Diltiazem CD (24hr) 240 MG CAPSULE PO SCH (08:40)
[2019-07-28] MEDS: Insulin DETEMIR 100 UNIT/ML X5UNITS SQ SCH ×2 (08:40→21:24)
[2019-07-28] MEDS: hydrOXYzine pamoate 25 MG CAPSULE PO PRN ×2 (08:40→21:23)
[2019-07-28] MEDS: *HR* Rivaroxaban 10 MG TABLET PO SCH (17:07)
[2019-07-28] MEDS: Methocarbamol 500 MG TABLET PO SCH (21:22)
[2019-07-28] MEDS: Melatonin 3 MG TABLET PO SCH (21:23)
[2019-07-29] MEDS: *HR* OxyCODONE Immed Rel 15 MG TABLET PO PRN ×5 (02:46→21:17)
[2019-07-29] MEDS: Acetaminophen 325 MG TABLET PO SCH ×3 (05:46→17:01)
[2019-07-29] MEDS: Furosemide 40 MG TABLET PO SCH ×2 (05:46→15:09)
[2019-07-29] MEDS: Ascorbic Acid 500 MG TABLET PO SCH (05:46)
[2019-07-29] MEDS: Insulin LISPRO 300 UNITS/3 ML VIAL SQ SCH ×4 (08:26→20:05)
[2019-07-29] MEDS: Cyanocobalamin (B-12) 1,000 MCG TABLET PO SCH (08:29)
[2019-07-29] MEDS: Diltiazem CD (24hr) 240 MG CAPSULE PO SCH (08:29)
[2019-07-29] MEDS: BuPROPion XL (24 HR) 150 MG TABLET PO SCH (08:29)
[2019-07-29] MEDS: *HR* Metformin 500 MG TABLET PO SCH (08:30)
[2019-07-29] MEDS: FLUoxetine 20 MG CAPSULE PO SCH (08:30)
[2019-07-29] MEDS: Cholecalciferol (D-3) 1,000 UNIT (25MCG) TABLET PO SCH (08:30)
[2019-07-29] MEDS: Pregabalin 75 MG CAPSULE PO SCH ×3 (08:30→20:04)
[2019-07-29] MEDS: Insulin DETEMIR 100 UNIT/ML X5UNITS SQ SCH ×2 (08:30→20:05)
[2019-07-29] MEDS: cephALEXin 500 MG CAPSULE PO SCH ×4 (08:39→20:04)
[2019-07-29] MEDS: hydrOXYzine pamoate 25 MG CAPSULE PO PRN (08:39)
[2019-07-29] MEDS: MOM Conc 10 ML UD.LIQ PO SCH (15:06)
[2019-07-29] MEDS: *HR* Rivaroxaban 10 MG TABLET PO SCH (15:09)
[2019-07-29] MEDS: Melatonin 3 MG TABLET PO SCH (20:04)
[2019-07-29] MEDS: Methocarbamol 500 MG TABLET PO SCH (20:04)
[2019-07-30] MEDS: Acetaminophen 325 MG TABLET PO SCH ×4 (00:43→19:22)
[2019-07-30] MEDS: *HR* OxyCODONE Immed Rel 15 MG TABLET PO PRN ×3 (01:19→20:02)
[2019-07-30] MEDS: Furosemide 40 MG TABLET PO SCH ×2 (05:52→19:22)
[2019-07-30] MEDS: Ascorbic Acid 500 MG TABLET PO SCH (05:52)
[2019-07-30] MEDS: Insulin LISPRO 300 UNITS/3 ML VIAL SQ SCH ×2 (19:19→20:00)
[2019-07-30] MEDS: Diltiazem CD (24hr) 240 MG CAPSULE PO SCH (19:19)
[2019-07-30] MEDS: *HR* Metformin 500 MG TABLET PO SCH (19:19)
[2019-07-30] MEDS: cephALEXin 500 MG CAPSULE PO SCH ×2 (19:20→20:02)
[2019-07-30] MEDS: Pregabalin 75 MG CAPSULE PO SCH ×3 (19:20→19:58)
[2019-07-30] MEDS: Insulin DETEMIR 100 UNIT/ML X5UNITS SQ SCH ×2 (19:20→19:59)
[2019-07-30] MEDS: Cyanocobalamin (B-12) 1,000 MCG TABLET PO SCH (19:21)
[2019-07-30] MEDS: BuPROPion XL (24 HR) 150 MG TABLET PO SCH (19:21)
[2019-07-30] MEDS: Cholecalciferol (D-3) 1,000 UNIT (25MCG) TABLET PO SCH (19:21)
[2019-07-30] MEDS: FLUoxetine 20 MG CAPSULE PO SCH (19:21)
[2019-07-30] MEDS: *HR* Rivaroxaban 10 MG TABLET PO SCH (19:22)
[2019-07-30] MEDS: Melatonin 3 MG TABLET PO SCH (19:57)
[2019-07-30] MEDS: Methocarbamol 500 MG TABLET PO SCH (19:58)
[2019-07-30] MEDS: hydrOXYzine pamoate 25 MG CAPSULE PO PRN (20:02)
[2019-07-31] MEDS: Acetaminophen 325 MG TABLET PO SCH ×5 (00:29→23:55)
[2019-07-31] MEDS: Furosemide 40 MG TABLET PO SCH ×2 (06:03→16:22)
[2019-07-31] MEDS: Ascorbic Acid 500 MG TABLET PO SCH (06:04)
[2019-07-31] MEDS: *HR* OxyCODONE Immed Rel 15 MG TABLET PO PRN ×4 (06:07→20:24)
[2019-07-31] MEDS: Insulin LISPRO 300 UNITS/3 ML VIAL SQ SCH ×4 (09:16→20:21)
[2019-07-31] MEDS: Insulin DETEMIR 100 UNIT/ML X5UNITS SQ SCH ×2 (09:38→20:21)
[2019-07-31] MEDS: Pregabalin 75 MG CAPSULE PO SCH ×3 (09:39→20:24)
[2019-07-31] MEDS: hydrOXYzine pamoate 25 MG CAPSULE PO PRN ×2 (09:39→20:24)
[2019-07-31] MEDS: Cholecalciferol (D-3) 1,000 UNIT (25MCG) TABLET PO SCH (09:39)
[2019-07-31] MEDS: BuPROPion XL (24 HR) 150 MG TABLET PO SCH (09:40)
[2019-07-31] MEDS: Diltiazem CD (24hr) 240 MG CAPSULE PO SCH (09:40)
[2019-07-31] MEDS: Cyanocobalamin (B-12) 1,000 MCG TABLET PO SCH (09:40)
[2019-07-31] MEDS: FLUoxetine 20 MG CAPSULE PO SCH (09:40)
[2019-07-31] MEDS: *HR* Metformin 500 MG TABLET PO SCH (09:40)
[2019-07-31] MEDS: cephALEXin 500 MG CAPSULE PO SCH ×4 (09:40→20:25)
[2019-07-31] MEDS: *HR* Rivaroxaban 10 MG TABLET PO SCH (16:22)
[2019-07-31] MEDS: MOM Conc 10 ML UD.LIQ PO SCH (16:24)
[2019-07-31] MEDS: Methocarbamol 500 MG TABLET PO SCH (20:21)
[2019-07-31] MEDS: Melatonin 3 MG TABLET PO SCH (20:25)
[2019-08-01] MEDS: *HR* OxyCODONE Immed Rel 15 MG TABLET PO PRN ×5 (00:17→18:53)
[2019-08-01 06:06] LABS: Basophils % 0.7 %; Eosinophils # 0.3 K/mcL (0.0-0.6); Eosinophils % 5.4 %; Hematocrit 28.7 % (35.3-44.9); Hemoglobin 8.9 g/dL (11.5-15.4); Immature Granulocytes % 0.5 % (0-4); Lymphocytes # 1.2 K/mcL (0.6-4.6); Mean Corpuscular Hemoglobin 30.4 pg (28.0-33.3); Mean Platelet Volume 11.4 fL (9.4-12.4); Monocytes # 0.8 K/mcL (0.0-1.3); Monocytes % 13.1 %; Neutrophils # 3.8 K/mcL (1.6-8.9); Platelet Count 181 K/mcL (140-400); Red Blood Count 2.93 M/mcL (3.82-4.97); Red Cell Distribution Width 14.2 % (11.5-14.5); Segmented Neutrophils % 61.3 %; White Blood Count 6.1 K/mcL (4.3-11.1)
[2019-08-01] MEDS: Furosemide 40 MG TABLET PO SCH ×2 (06:08→15:37)
[2019-08-01] MEDS: Acetaminophen 325 MG TABLET PO SCH ×3 (06:08→18:50)
[2019-08-01] MEDS: Ascorbic Acid 500 MG TABLET PO SCH (06:08)
[2019-08-01 06:31] LABS: BUN/Creatinine Ratio 20 (6-26); Blood Urea Nitrogen 19 mg/dL (6-20); Carbon Dioxide 34 mEq/L (23-29); Chloride 101 mEq/L (98-107); Glucose 126 mg/dL (70-105); Magnesium 1.9 mg/dL (1.6-2.6); Osmolality,Calculated 290 (280-300); Sodium 138 mEq/L (136-145); eGFR For African Americans > 60 (> 60); eGFR For Non-African Americans > 60 (> 60)
[2019-08-01] MEDS: Insulin LISPRO 300 UNITS/3 ML VIAL SQ SCH ×4 (08:09→19:47)
[2019-08-01] MEDS: Insulin DETEMIR 100 UNIT/ML X5UNITS SQ SCH ×2 (08:55→19:47)
[2019-08-01] MEDS: Cholecalciferol (D-3) 1,000 UNIT (25MCG) TABLET PO SCH (08:56)
[2019-08-01] MEDS: Cyanocobalamin (B-12) 1,000 MCG TABLET PO SCH (08:57)
[2019-08-01] MEDS: *HR* Metformin 500 MG TABLET PO SCH (08:57)
[2019-08-01] MEDS: BuPROPion XL (24 HR) 150 MG TABLET PO SCH (08:57)
[2019-08-01] MEDS: Pregabalin 75 MG CAPSULE PO SCH ×3 (08:57→19:47)
[2019-08-01] MEDS: hydrOXYzine pamoate 25 MG CAPSULE PO PRN ×2 (08:57→15:37)
[2019-08-01] MEDS: cephALEXin 500 MG CAPSULE PO SCH ×4 (08:57→19:47)
[2019-08-01] MEDS: FLUoxetine 20 MG CAPSULE PO SCH (08:57)
[2019-08-01] MEDS: Diltiazem CD (24hr) 240 MG CAPSULE PO SCH (08:57)
[2019-08-01] MEDS: *HR* Rivaroxaban 10 MG TABLET PO SCH (17:13)
[2019-08-01] MEDS: Melatonin 3 MG TABLET PO SCH (19:47)
[2019-08-01] MEDS: Methocarbamol 500 MG TABLET PO SCH (19:47)
[2019-08-02] MEDS: *HR* OxyCODONE Immed Rel 15 MG TABLET PO PRN ×5 (00:10→23:38)
[2019-08-02] MEDS: Acetaminophen 325 MG TABLET PO SCH ×5 (00:10→23:38)
[2019-08-02] MEDS: Furosemide 40 MG TABLET PO SCH ×2 (06:20→18:33)
[2019-08-02] MEDS: Ascorbic Acid 500 MG TABLET PO SCH (06:20)
[2019-08-02] MEDS: Insulin LISPRO 300 UNITS/3 ML VIAL SQ SCH ×4 (07:36→21:09)
[2019-08-02] MEDS: Cyanocobalamin (B-12) 1,000 MCG TABLET PO SCH (08:19)
[2019-08-02] MEDS: Diltiazem CD (24hr) 240 MG CAPSULE PO SCH (08:19)
[2019-08-02] MEDS: *HR* Metformin 500 MG TABLET PO SCH (08:19)
[2019-08-02] MEDS: FLUoxetine 20 MG CAPSULE PO SCH (08:20)
[2019-08-02] MEDS: cephALEXin 500 MG CAPSULE PO SCH ×4 (08:20→21:01)
[2019-08-02] MEDS: BuPROPion XL (24 HR) 150 MG TABLET PO SCH (08:20)
[2019-08-02] MEDS: Cholecalciferol (D-3) 1,000 UNIT (25MCG) TABLET PO SCH (08:20)
[2019-08-02] MEDS: Pregabalin 75 MG CAPSULE PO SCH ×3 (08:21→21:01)
[2019-08-02] MEDS: Insulin DETEMIR 100 UNIT/ML X5UNITS SQ SCH ×2 (08:22→20:59)
[2019-08-02] MEDS: MOM Conc 10 ML UD.LIQ PO SCH (18:33)
[2019-08-02] MEDS: *HR* Rivaroxaban 10 MG TABLET PO SCH (18:37)
[2019-08-02] MEDS: Methocarbamol 500 MG TABLET PO SCH (21:02)
[2019-08-02] MEDS: hydrOXYzine pamoate 25 MG CAPSULE PO PRN (21:02)
[2019-08-02] MEDS: Melatonin 3 MG TABLET PO SCH (21:02)
[2019-08-02] MEDS: Clindamycin 600 MG/50 ML 600 MG/50 ML IV.SOLN IVPB SCH (23:38)
[2019-08-03] MEDS: Ascorbic Acid 500 MG TABLET PO SCH (06:30)
[2019-08-03] MEDS: Acetaminophen 325 MG TABLET PO SCH ×4 (06:30→23:58)
[2019-08-03] MEDS: *HR* OxyCODONE Immed Rel 15 MG TABLET PO PRN ×4 (06:30→21:12)
[2019-08-03] MEDS: Furosemide 40 MG TABLET PO SCH ×2 (06:30→14:44)
[2019-08-03] MEDS: Clindamycin 600 MG/50 ML 600 MG/50 ML IV.SOLN IVPB SCH ×3 (08:07→23:57)
[2019-08-03] MEDS: Cholecalciferol (D-3) 1,000 UNIT (25MCG) TABLET PO SCH (08:08)
[2019-08-03] MEDS: FLUoxetine 20 MG CAPSULE PO SCH (08:08)
[2019-08-03] MEDS: *HR* Metformin 500 MG TABLET PO SCH (08:08)
[2019-08-03] MEDS: cephALEXin 500 MG CAPSULE PO SCH (08:09)
[2019-08-03] MEDS: BuPROPion XL (24 HR) 150 MG TABLET PO SCH (08:09)
[2019-08-03] MEDS: Diltiazem CD (24hr) 240 MG CAPSULE PO SCH (08:09)
[2019-08-03] MEDS: Cyanocobalamin (B-12) 1,000 MCG TABLET PO SCH (08:09)
[2019-08-03] MEDS: Gentamicin Oint 15 GM TUBE TP SCH (08:10)
[2019-08-03] MEDS: Pregabalin 75 MG CAPSULE PO SCH ×3 (08:10→21:15)
[2019-08-03] MEDS: Insulin DETEMIR 100 UNIT/ML X5UNITS SQ SCH ×2 (08:17→21:13)
[2019-08-03] MEDS: Insulin LISPRO 300 UNITS/3 ML VIAL SQ SCH ×4 (08:17→21:20)
[2019-08-03] MEDS: hydrOXYzine pamoate 25 MG CAPSULE PO PRN ×2 (11:20→21:12)
[2019-08-03] MEDS: *HR* Rivaroxaban 10 MG TABLET PO SCH (16:15)
[2019-08-03] MEDS: Lactobacillus 1 EACH CAP.SPRINK PO SCH (21:12)
[2019-08-03] MEDS: Melatonin 3 MG TABLET PO SCH (21:12)
[2019-08-03] MEDS: Methocarbamol 500 MG TABLET PO SCH (21:12)
[2019-08-04] MEDS: *HR* OxyCODONE Immed Rel 15 MG TABLET PO PRN ×4 (02:32→16:41)
[2019-08-04] MEDS: hydrOXYzine pamoate 25 MG CAPSULE PO PRN (06:29)
[2019-08-04] MEDS: Acetaminophen 325 MG TABLET PO SCH ×2 (06:29→12:24)
[2019-08-04] MEDS: Ascorbic Acid 500 MG TABLET PO SCH (06:30)
[2019-08-04] MEDS: Furosemide 40 MG TABLET PO SCH ×2 (06:30→14:42)
[2019-08-04 07:47] VITALS: BP 105/69
[2019-08-04] MEDS: Insulin LISPRO 300 UNITS/3 ML VIAL SQ SCH ×3 (07:47→16:42)
[2019-08-04] MEDS: Pregabalin 75 MG CAPSULE PO SCH ×2 (07:48→14:42)
[2019-08-04] MEDS: Cholecalciferol (D-3) 1,000 UNIT (25MCG) TABLET PO SCH (07:48)
[2019-08-04] MEDS: Diltiazem CD (24hr) 240 MG CAPSULE PO SCH (07:49)
[2019-08-04] MEDS: Lactobacillus 1 EACH CAP.SPRINK PO SCH (07:49)
[2019-08-04] MEDS: Cyanocobalamin (B-12) 1,000 MCG TABLET PO SCH (07:49)
[2019-08-04] MEDS: *HR* Metformin 500 MG TABLET PO SCH (07:50)
[2019-08-04] MEDS: BuPROPion XL (24 HR) 150 MG TABLET PO SCH (07:50)
[2019-08-04] MEDS: FLUoxetine 20 MG CAPSULE PO SCH (07:50)
[2019-08-04] MEDS: Clindamycin 600 MG/50 ML 600 MG/50 ML IV.SOLN IVPB SCH ×2 (07:50→13:28)
[2019-08-04] MEDS: Gentamicin Oint 15 GM TUBE TP SCH (12:19)
[2019-08-04] MEDS: Insulin DETEMIR 100 UNIT/ML X5UNITS SQ SCH (12:24)
[2019-08-04] MEDS: MOM Conc 10 ML UD.LIQ PO SCH (14:42)
[2019-08-04] MEDS: *HR* Rivaroxaban 10 MG TABLET PO SCH (16:33)
== END 2019-08-04 18:25 | disposition other institution (70) | DRG 560 ==
LOC: INPPIK 21:46
PROVIDERS: ADMIT Internal Medicine; ATTEND Internal Medicine

== ENCOUNTER 2019-08-08 14:42 | Inpatient (IN) ==
[2019-08-08] MEDS ORDERED: D5% in Water 1,000 ML IVC PRN (18:45)
[2019-08-08] MEDS ORDERED: *HR* Dextrose 50 % in Water (Syg) 50 ML SYRINGE IVP PRN (18:45)
[2019-08-08] MEDS ORDERED: Dextrose Gel 15 GM/37.5 ML TUBE PO PRN ×2 (18:45)
[2019-08-08] MEDS ORDERED: Insulin DETEMIR 100 UNIT/ML per UNIT SQ ONE (21:00)
[2019-08-08] MEDS: Methocarbamol 500 MG TABLET PO SCH (21:33)
[2019-08-08] MEDS: Pregabalin 75 MG CAPSULE PO SCH (21:33)
[2019-08-08] MEDS: *HR* OxyCODONE Immed Rel 5 MG TABLET PO PRN (21:34)
[2019-08-08] MEDS: *HR* Rivaroxaban 10 MG TABLET PO SCH (21:34)
[2019-08-08] MEDS: Sennosides/Docusate Sodium TABLET PO SCH (21:34)
[2019-08-08] MEDS: Melatonin 3 MG TABLET PO SCH (21:35)
[2019-08-08] MEDS: Insulin LISPRO 300 UNITS/3 ML VIAL SQ SCH (21:35)
[2019-08-09] MEDS: MetroNIDAZOLE 500 MG/100 ML 500 MG/100 ML BAG IVPB SCH ×3 (00:58→15:11)
[2019-08-09] MEDS: *HR* OxyCODONE Immed Rel 5 MG TABLET PO PRN ×4 (04:55→19:23)
[2019-08-09] MEDS: Ascorbic Acid 500 MG TABLET PO SCH (04:55)
[2019-08-09 05:05] LABS: Basophils % 0.6 %; Eosinophils # 0.3 K/mcL (0.0-0.6); Hematocrit 28.2 % (35.3-44.9); Hemoglobin 8.9 g/dL (11.5-15.4); Immature Granulocytes % 0.4 % (0-4); Lymphocytes # 0.9 K/mcL (0.6-4.6); Lymphocytes % 12.5 %; Mean Corpuscular HGB Conc 31.6 g/dL (31.6-35.5); Mean Corpuscular Hemoglobin 30.6 pg (28.0-33.3); Mean Corpuscular Volume 96.9 fL (83.0-100.0); Monocytes # 0.8 K/mcL (0.0-1.3); Monocytes % 11.3 %; Platelet Count 219 K/mcL (140-400); Red Blood Count 2.91 M/mcL (3.82-4.97); Segmented Neutrophils % 71.2 %; White Blood Count 7.1 K/mcL (4.3-11.1)
[2019-08-09 05:14] LABS: INR 1.6; Prothrombin Time 17.9 Seconds (9.4-12.1)
[2019-08-09 05:17] LABS: Activated Partial Thrombo Time 42.2 Seconds (26.0-36.0)
[2019-08-09 05:25] LABS: BUN/Creatinine Ratio 20 (6-26); Blood Urea Nitrogen 12 mg/dL (6-20); Calcium 8.6 mg/dL (8.6-10.3); Carbon Dioxide 33 mEq/L (23-29); Chloride 104 mEq/L (98-107); Glucose 138 mg/dL (70-105); Osmolality,Calculated 294 (280-300); Potassium 3.8 mEq/L (3.5-5.1); Sodium 141 mEq/L (136-145); eGFR For African Americans > 60 (> 60); eGFR For Non-African Americans > 60 (> 60)
[2019-08-09] MEDS ORDERED: *HR* OxyCODONE Immed Rel 5 MG TABLET PO ONE (06:10)
[2019-08-09] MEDS: Insulin LISPRO 300 UNITS/3 ML VIAL SQ SCH ×4 (07:24→21:45)
[2019-08-09] MEDS ORDERED: *HR* Dextrose 50 % in Water (Vial) 50 ML VIAL IVP PRN (08:19)
[2019-08-09] MEDS: Cyanocobalamin (B-12) 1,000 MCG TABLET PO SCH (08:31)
[2019-08-09] MEDS: *HR* Metformin 500 MG TABLET PO SCH ×2 (08:31→16:22)
[2019-08-09] MEDS: BuPROPion SR (12 HR) 150 MG TABLET PO SCH (08:31)
[2019-08-09] MEDS: Cholecalciferol (D-3) 1,000 UNIT (25MCG) TABLET PO SCH (08:31)
[2019-08-09] MEDS: Insulin DETEMIR 100 UNIT/ML X5UNITS SQ SCH ×2 (08:31→21:48)
[2019-08-09] MEDS: Pregabalin 75 MG CAPSULE PO SCH (08:31)
[2019-08-09] MEDS: Sennosides/Docusate Sodium TABLET PO SCH ×2 (08:31→21:47)
[2019-08-09] MEDS ORDERED: Furosemide 40 MG TABLET PO SCH (09:00)
[2019-08-09] MEDS ORDERED: Furosemide 20 MG TABLET PO SCH (14:00)
[2019-08-09] MEDS: Pregabalin 50 MG CAPSULE PO SCH ×2 (15:10→21:47)
[2019-08-09] MEDS ORDERED: Bumetanide 1 MG TABLET PO SCH (17:00)
[2019-08-09] MEDS: Lactobacillus 1 EACH CAP.SPRINK PO SCH (21:46)
[2019-08-09] MEDS: Melatonin 3 MG TABLET PO SCH (21:47)
[2019-08-09] MEDS: *HR* Rivaroxaban 10 MG TABLET PO SCH (21:47)
[2019-08-09] MEDS: Methocarbamol 500 MG TABLET PO SCH (21:47)
[2019-08-10] MEDS: MetroNIDAZOLE 500 MG/100 ML 500 MG/100 ML BAG IVPB SCH ×4 (00:10→23:55)
[2019-08-10] MEDS: *HR* OxyCODONE Immed Rel 5 MG TABLET PO PRN ×6 (00:10→22:07)
[2019-08-10] MEDS: Ascorbic Acid 500 MG TABLET PO SCH (05:49)
[2019-08-10 06:19] LABS: Magnesium 1.7 mg/dL (1.6-2.6)
[2019-08-10] MEDS: Insulin LISPRO 300 UNITS/3 ML VIAL SQ SCH ×4 (07:22→20:45)
[2019-08-10] MEDS: Insulin DETEMIR 100 UNIT/ML X5UNITS SQ SCH ×2 (08:27→22:02)
[2019-08-10] MEDS: Dulaglutide [Trulicity] 1.5 MG SQ SCH (09:34)
[2019-08-10] MEDS: Cyanocobalamin (B-12) 1,000 MCG TABLET PO SCH (10:02)
[2019-08-10] MEDS: BuPROPion SR (12 HR) 150 MG TABLET PO SCH (10:02)
[2019-08-10] MEDS: Pregabalin 50 MG CAPSULE PO SCH ×3 (10:02→20:44)
[2019-08-10] MEDS: Cholecalciferol (D-3) 1,000 UNIT (25MCG) TABLET PO SCH (10:02)
[2019-08-10] MEDS: Sennosides/Docusate Sodium TABLET PO SCH ×2 (10:02→20:44)
[2019-08-10] MEDS: *HR* Metformin 500 MG TABLET PO SCH ×2 (10:02→16:24)
[2019-08-10] MEDS: Lactobacillus 1 EACH CAP.SPRINK PO SCH ×2 (10:02→20:44)
[2019-08-10] MEDS: Bumetanide 1 MG TABLET PO SCH (14:18)
[2019-08-10] MEDS: Melatonin 3 MG TABLET PO SCH (20:45)
[2019-08-10] MEDS: *HR* Rivaroxaban 10 MG TABLET PO SCH (20:45)
[2019-08-10] MEDS: hydrOXYzine pamoate 25 MG CAPSULE PO PRN (20:51)
[2019-08-10] MEDS: Methocarbamol 500 MG TABLET PO SCH (20:51)
[2019-08-11] MEDS: *HR* OxyCODONE Immed Rel 5 MG TABLET PO PRN ×5 (03:19→18:57)
[2019-08-11] MEDS: Ascorbic Acid 500 MG TABLET PO SCH (06:46)
[2019-08-11] MEDS: BuPROPion SR (12 HR) 150 MG TABLET PO SCH (07:28)
[2019-08-11] MEDS: Lactobacillus 1 EACH CAP.SPRINK PO SCH ×2 (07:28→20:36)
[2019-08-11] MEDS: *HR* Metformin 500 MG TABLET PO SCH ×2 (07:28→16:48)
[2019-08-11] MEDS: Bumetanide 1 MG TABLET PO SCH ×2 (07:28→14:45)
[2019-08-11] MEDS: Sennosides/Docusate Sodium TABLET PO SCH (07:29)
[2019-08-11] MEDS: MetroNIDAZOLE 500 MG/100 ML 500 MG/100 ML BAG IVPB SCH ×2 (07:29→15:46)
[2019-08-11] MEDS: Cyanocobalamin (B-12) 1,000 MCG TABLET PO SCH (07:29)
[2019-08-11] MEDS: Cholecalciferol (D-3) 1,000 UNIT (25MCG) TABLET PO SCH (07:29)
[2019-08-11] MEDS: Pregabalin 50 MG CAPSULE PO SCH (07:29)
[2019-08-11] MEDS: Insulin LISPRO 300 UNITS/3 ML VIAL SQ SCH ×4 (07:57→20:38)
[2019-08-11] MEDS: Insulin DETEMIR 100 UNIT/ML X5UNITS SQ SCH ×2 (11:22→20:38)
[2019-08-11] MEDS: Pregabalin 75 MG CAPSULE PO SCH ×2 (14:45→20:36)
[2019-08-11] MEDS ORDERED: Sennosides/Docusate Sodium TABLET PO PRN (18:36)
[2019-08-11] MEDS: Methocarbamol 500 MG TABLET PO SCH (20:35)
[2019-08-11] MEDS: traZODone 50 MG TABLET PO PRN (20:37)
[2019-08-11] MEDS: Melatonin 3 MG TABLET PO SCH (20:37)
[2019-08-12] MEDS: MetroNIDAZOLE 500 MG/100 ML 500 MG/100 ML BAG IVPB SCH ×3 (00:31→17:38)
[2019-08-12] MEDS: *HR* OxyCODONE Immed Rel 5 MG TABLET PO PRN ×4 (06:53→22:41)
[2019-08-12] MEDS: Ascorbic Acid 500 MG TABLET PO SCH (06:53)
[2019-08-12] MEDS: Insulin LISPRO 300 UNITS/3 ML VIAL SQ SCH ×4 (07:49→20:57)
[2019-08-12] MEDS: BuPROPion SR (12 HR) 150 MG TABLET PO SCH (08:30)
[2019-08-12] MEDS: Cyanocobalamin (B-12) 1,000 MCG TABLET PO SCH (08:30)
[2019-08-12] MEDS: Lactobacillus 1 EACH CAP.SPRINK PO SCH ×2 (08:31→20:56)
[2019-08-12] MEDS: *HR* Metformin 500 MG TABLET PO SCH ×2 (08:31→17:17)
[2019-08-12] MEDS: Cholecalciferol (D-3) 1,000 UNIT (25MCG) TABLET PO SCH (08:31)
[2019-08-12] MEDS: Bumetanide 1 MG TABLET PO SCH ×2 (08:31→15:30)
[2019-08-12] MEDS: Pregabalin 75 MG CAPSULE PO SCH ×3 (08:32→20:57)
[2019-08-12] MEDS: Insulin DETEMIR 100 UNIT/ML X5UNITS SQ SCH ×2 (08:36→20:57)
[2019-08-12] MEDS ORDERED: levoFLOXacin 750 MG/150 ML 750 MG/150 ML BAG IVPB ONE (18:01)
[2019-08-12 19:19] LABS: Basophils % 0.5 %; Eosinophils # 0.2 K/mcL (0.0-0.6); Hematocrit 26.8 % (35.3-44.9); Hemoglobin 8.5 g/dL (11.5-15.4); Immature Granulocytes % 0.5 % (0-4); Lymphocytes % 12.9 %; Mean Corpuscular HGB Conc 31.7 g/dL (31.6-35.5); Mean Corpuscular Hemoglobin 29.9 pg (28.0-33.3); Mean Corpuscular Volume 94.4 fL (83.0-100.0); Mean Platelet Volume 10.9 fL (9.4-12.4); Monocytes # 0.8 K/mcL (0.0-1.3); Monocytes % 10.3 %; Neutrophils # 5.9 K/mcL (1.6-8.9); Platelet Count 214 K/mcL (140-400); Red Blood Count 2.84 M/mcL (3.82-4.97); Red Cell Distribution Width 14.1 % (11.5-14.5); Segmented Neutrophils % 72.8 %; White Blood Count 8.1 K/mcL (4.3-11.1)
[2019-08-12 19:25] LABS: Bilirubin,Urine Negative (Negative); Blood,Urine Negative (Negative); Clarity,Urine Clear (Clear); Glucose,Urine (UA) Normal (Normal); Ketones,Urine Negative (Negative); Leukocyte Esterase,Urine Small (Negative); Nitrite,Urine Negative (Negative); PH,Urine 5.5 pH Units (5.0-8.0); Protein,Urine Negative (Neg-Trace); Urobilinogen,Urine Normal (Normal)
[2019-08-12 19:27] LABS: Color,Urine Light Yellow (Yellow)
[2019-08-12 19:31] LABS: Bacteria,Urine Few per hpf (None-Few); RBC,Urine 0-3 per hpf (0-3); Squamous Epithelial Cell,Urine Few per lpf (None-Few); WBC,Urine 0-3 per hpf (0-3); Yeast,Urine Few per hpf (None Seen)
[2019-08-12] MEDS: traZODone 50 MG TABLET PO PRN (20:55)
[2019-08-12] MEDS: Melatonin 3 MG TABLET PO SCH (20:56)
[2019-08-12] MEDS: Methocarbamol 500 MG TABLET PO SCH (20:56)
[2019-08-13] MEDS: MetroNIDAZOLE 500 MG/100 ML 500 MG/100 ML BAG IVPB SCH ×3 (00:59→16:49)
[2019-08-13 06:53] LABS: Alanine Aminotransferase 17 Units/L (7-52); Albumin 2.9 g/dL (3.5-5.7); Albumin/Globulin Ratio 1.3 (1.1-2.2); Alkaline Phosphatase 51 Units/L (34-104); Aspartate Amino Transferase 16 Units/L (13-39); BUN/Creatinine Ratio 10 (6-26); Bilirubin,Total 0.3 mg/dL (0.3-1.0); Blood Urea Nitrogen 7 mg/dL (6-20); Calcium 8.2 mg/dL (8.6-10.3); Carbon Dioxide 31 mEq/L (23-29); Chloride 105 mEq/L (98-107); Globulin 2.2 g/dL (2.4-3.5); Glucose 98 mg/dL (70-105); Magnesium 1.5 mg/dL (1.6-2.6); Osmolality,Calculated 290 (280-300); Potassium 3.2 mEq/L (3.5-5.1); Sodium 141 mEq/L (136-145); Total Protein 5.1 g/dL (6.4-8.9); eGFR For African Americans > 60 (> 60); eGFR For Non-African Americans > 60 (> 60)
[2019-08-13] MEDS: Ascorbic Acid 500 MG TABLET PO SCH (06:53)
[2019-08-13] MEDS: *HR* OxyCODONE Immed Rel 5 MG TABLET PO PRN ×4 (06:56→22:06)
[2019-08-13] MEDS: Pregabalin 75 MG CAPSULE PO SCH ×3 (09:00→22:06)
[2019-08-13] MEDS: Bumetanide 1 MG TABLET PO SCH ×2 (09:04→16:50)
[2019-08-13] MEDS: Cholecalciferol (D-3) 1,000 UNIT (25MCG) TABLET PO SCH (09:04)
[2019-08-13] MEDS: Cyanocobalamin (B-12) 1,000 MCG TABLET PO SCH (09:04)
[2019-08-13] MEDS: BuPROPion SR (12 HR) 150 MG TABLET PO SCH (09:04)
[2019-08-13] MEDS: *HR* Metformin 500 MG TABLET PO SCH ×2 (09:05→16:49)
[2019-08-13] MEDS: Lactobacillus 1 EACH CAP.SPRINK PO SCH ×2 (09:05→22:07)
[2019-08-13] MEDS: Insulin DETEMIR 100 UNIT/ML X5UNITS SQ SCH ×2 (09:05→22:07)
[2019-08-13] MEDS: Insulin LISPRO 300 UNITS/3 ML VIAL SQ SCH ×4 (09:15→22:07)
[2019-08-13] MEDS: FLUoxetine 20 MG CAPSULE PO SCH (12:22)
[2019-08-13] MEDS: Oxymetazoline Nasal SPRAY BOTTLE NS PRN ×2 (14:16→22:10)
[2019-08-13] MEDS: Methocarbamol 500 MG TABLET PO SCH (22:05)
[2019-08-13] MEDS: Magnesium Oxide 400 MG TABLET PO SCH (22:07)
[2019-08-13] MEDS: Melatonin 3 MG TABLET PO SCH (22:07)
[2019-08-14] MEDS: MetroNIDAZOLE 500 MG/100 ML 500 MG/100 ML BAG IVPB SCH ×3 (00:30→16:41)
[2019-08-14] MEDS: Ascorbic Acid 500 MG TABLET PO SCH (06:29)
[2019-08-14] MEDS: *HR* OxyCODONE Immed Rel 5 MG TABLET PO PRN ×4 (06:29→21:07)
[2019-08-14] MEDS: Insulin LISPRO 300 UNITS/3 ML VIAL SQ SCH ×4 (08:49→21:04)
[2019-08-14] MEDS: Insulin DETEMIR 100 UNIT/ML X5UNITS SQ SCH ×2 (08:50→21:07)
[2019-08-14] MEDS: Bumetanide 1 MG TABLET PO SCH ×2 (08:50→16:42)
[2019-08-14] MEDS: Lactobacillus 1 EACH CAP.SPRINK PO SCH ×2 (08:50→21:06)
[2019-08-14] MEDS: Magnesium Oxide 400 MG TABLET PO SCH ×2 (08:50→21:06)
[2019-08-14] MEDS: BuPROPion SR (12 HR) 150 MG TABLET PO SCH (08:50)
[2019-08-14] MEDS: Pregabalin 75 MG CAPSULE PO SCH ×3 (08:51→21:07)
[2019-08-14] MEDS: Cyanocobalamin (B-12) 1,000 MCG TABLET PO SCH (08:51)
[2019-08-14] MEDS: *HR* Metformin 500 MG TABLET PO SCH ×2 (08:51→16:42)
[2019-08-14] MEDS: FLUoxetine 20 MG CAPSULE PO SCH (08:51)
[2019-08-14] MEDS: Cholecalciferol (D-3) 1,000 UNIT (25MCG) TABLET PO SCH (08:51)
[2019-08-14] MEDS: Melatonin 3 MG TABLET PO SCH (21:06)
[2019-08-14] MEDS: Methocarbamol 500 MG TABLET PO SCH (21:06)
[2019-08-15] MEDS: MetroNIDAZOLE 500 MG/100 ML 500 MG/100 ML BAG IVPB SCH ×4 (00:39→23:14)
[2019-08-15] MEDS: *HR* OxyCODONE Immed Rel 5 MG TABLET PO PRN ×4 (01:43→21:06)
[2019-08-15] MEDS: Ascorbic Acid 500 MG TABLET PO SCH (05:24)
[2019-08-15] MEDS: Oxymetazoline Nasal SPRAY BOTTLE NS PRN (05:28)
[2019-08-15 07:20] LABS: Basophils % 0.6 %; Eosinophils # 0.3 K/mcL (0.0-0.6); Eosinophils % 3.9 %; Hematocrit 26.3 % (35.3-44.9); Hemoglobin 8.3 g/dL (11.5-15.4); Immature Granulocytes % 0.5 % (0-4); Lymphocytes # 0.7 K/mcL (0.6-4.6); Lymphocytes % 11.2 %; Mean Corpuscular HGB Conc 31.6 g/dL (31.6-35.5); Mean Corpuscular Hemoglobin 30.3 pg (28.0-33.3); Monocytes # 0.8 K/mcL (0.0-1.3); Neutrophils # 4.6 K/mcL (1.6-8.9); Platelet Count 181 K/mcL (140-400); Red Blood Count 2.74 M/mcL (3.82-4.97); Red Cell Distribution Width 14.1 % (11.5-14.5); Segmented Neutrophils % 71.8 %; White Blood Count 6.3 K/mcL (4.3-11.1)
[2019-08-15 07:46] LABS: Alanine Aminotransferase 16 Units/L (7-52); Albumin 2.9 g/dL (3.5-5.7); Albumin/Globulin Ratio 1.2 (1.1-2.2); Alkaline Phosphatase 53 Units/L (34-104); Aspartate Amino Transferase 18 Units/L (13-39); BUN/Creatinine Ratio 10 (6-26); Bilirubin,Total 0.3 mg/dL (0.3-1.0); Blood Urea Nitrogen 8 mg/dL (6-20); Calcium 8.3 mg/dL (8.6-10.3); Carbon Dioxide 32 mEq/L (23-29); Chloride 104 mEq/L (98-107); Globulin 2.4 g/dL (2.4-3.5); Glucose 121 mg/dL (70-105); Magnesium 1.5 mg/dL (1.6-2.6); Osmolality,Calculated 292 (280-300); Potassium 3.4 mEq/L (3.5-5.1); Sodium 141 mEq/L (136-145); Total Protein 5.3 g/dL (6.4-8.9); eGFR For African Americans > 60 (> 60); eGFR For Non-African Americans > 60 (> 60)
[2019-08-15] MEDS: Insulin LISPRO 300 UNITS/3 ML VIAL SQ SCH ×4 (09:15→21:07)
[2019-08-15] MEDS: Cholecalciferol (D-3) 1,000 UNIT (25MCG) TABLET PO SCH (09:17)
[2019-08-15] MEDS: Lactobacillus 1 EACH CAP.SPRINK PO SCH ×2 (09:17→21:06)
[2019-08-15] MEDS: FLUoxetine 20 MG CAPSULE PO SCH (09:17)
[2019-08-15] MEDS: BuPROPion SR (12 HR) 150 MG TABLET PO SCH (09:18)
[2019-08-15] MEDS: Magnesium Oxide 400 MG TABLET PO SCH ×2 (09:18→21:06)
[2019-08-15] MEDS: Cyanocobalamin (B-12) 1,000 MCG TABLET PO SCH (09:18)
[2019-08-15] MEDS: Bumetanide 1 MG TABLET PO SCH ×2 (09:18→15:38)
[2019-08-15] MEDS: *HR* Metformin 500 MG TABLET PO SCH ×2 (09:18→16:10)
[2019-08-15] MEDS: Pregabalin 75 MG CAPSULE PO SCH ×3 (09:19→21:06)
[2019-08-15] MEDS: Insulin DETEMIR 100 UNIT/ML X5UNITS SQ SCH ×2 (09:22→21:07)
[2019-08-15] MEDS: *HR* Rivaroxaban 10 MG TABLET PO SCH (21:07)
[2019-08-15] MEDS: Methocarbamol 500 MG TABLET PO SCH (21:07)
[2019-08-15] MEDS: Melatonin 3 MG TABLET PO SCH (21:07)
[2019-08-15] MEDS: hydrOXYzine pamoate 25 MG CAPSULE PO PRN (23:14)
[2019-08-16] MEDS: Ascorbic Acid 500 MG TABLET PO SCH (05:36)
[2019-08-16] MEDS: *HR* OxyCODONE Immed Rel 5 MG TABLET PO PRN ×4 (05:38→17:57)
[2019-08-16] MEDS: Insulin LISPRO 300 UNITS/3 ML VIAL SQ SCH ×4 (07:50→20:38)
[2019-08-16] MEDS: Lactobacillus 1 EACH CAP.SPRINK PO SCH ×2 (08:25→20:38)
[2019-08-16] MEDS: Cyanocobalamin (B-12) 1,000 MCG TABLET PO SCH (08:25)
[2019-08-16] MEDS: FLUoxetine 20 MG CAPSULE PO SCH (08:25)
[2019-08-16] MEDS: Bumetanide 1 MG TABLET PO SCH ×2 (08:25→13:44)
[2019-08-16] MEDS: BuPROPion SR (12 HR) 150 MG TABLET PO SCH (08:25)
[2019-08-16] MEDS: Cholecalciferol (D-3) 1,000 UNIT (25MCG) TABLET PO SCH (08:25)
[2019-08-16] MEDS: Magnesium Oxide 400 MG TABLET PO SCH ×2 (08:25→20:35)
[2019-08-16] MEDS: *HR* Metformin 500 MG TABLET PO SCH ×2 (08:25→17:26)
[2019-08-16] MEDS: Insulin DETEMIR 100 UNIT/ML X5UNITS SQ SCH ×2 (08:26→20:38)
[2019-08-16] MEDS: MetroNIDAZOLE 500 MG/100 ML 500 MG/100 ML BAG IVPB SCH ×2 (08:26→17:26)
[2019-08-16] MEDS: Pregabalin 75 MG CAPSULE PO SCH ×2 (08:26→13:45)
[2019-08-16] MEDS: hydrOXYzine pamoate 25 MG CAPSULE PO PRN ×2 (10:38→18:00)
[2019-08-16] MEDS: Methocarbamol 500 MG TABLET PO SCH (20:34)
[2019-08-16] MEDS: *HR* Rivaroxaban 10 MG TABLET PO SCH (20:35)
[2019-08-16] MEDS: Melatonin 3 MG TABLET PO SCH (20:35)
[2019-08-16] MEDS: Pregabalin 50 MG CAPSULE PO SCH (20:37)
[2019-08-16] MEDS: traZODone 50 MG TABLET PO PRN (20:38)
[2019-08-17] MEDS: hydrOXYzine pamoate 25 MG CAPSULE PO PRN ×2 (01:18→21:14)
[2019-08-17] MEDS: *HR* OxyCODONE Immed Rel 5 MG TABLET PO PRN ×4 (01:18→20:55)
[2019-08-17] MEDS: MetroNIDAZOLE 500 MG/100 ML 500 MG/100 ML BAG IVPB SCH ×3 (01:19→15:28)
[2019-08-17 06:25] LABS: Basophils % 0.7 %; Eosinophils # 0.2 K/mcL (0.0-0.6); Eosinophils % 3.4 %; Hematocrit 26.2 % (35.3-44.9); Hemoglobin 8.2 g/dL (11.5-15.4); Immature Granulocytes % 0.5 % (0-4); Lymphocytes # 0.9 K/mcL (0.6-4.6); Lymphocytes % 15.5 %; Mean Corpuscular HGB Conc 31.3 g/dL (31.6-35.5); Mean Corpuscular Hemoglobin 29.7 pg (28.0-33.3); Mean Corpuscular Volume 94.9 fL (83.0-100.0); Mean Platelet Volume 11.3 fL (9.4-12.4); Monocytes # 0.8 K/mcL (0.0-1.3); Monocytes % 13.6 %; Neutrophils # 3.9 K/mcL (1.6-8.9); Platelet Count 185 K/mcL (140-400); Red Blood Count 2.76 M/mcL (3.82-4.97); Red Cell Distribution Width 14.1 % (11.5-14.5); Segmented Neutrophils % 66.3 %; White Blood Count 5.8 K/mcL (4.3-11.1)
[2019-08-17 06:44] LABS: BUN/Creatinine Ratio 25 (6-26); Blood Urea Nitrogen 17 mg/dL (6-20); Calcium 8.2 mg/dL (8.6-10.3); Carbon Dioxide 32 mEq/L (23-29); Chloride 101 mEq/L (98-107); Glucose 120 mg/dL (70-105); Osmolality,Calculated 293 (280-300); Potassium 3.2 mEq/L (3.5-5.1); Sodium 140 mEq/L (136-145); eGFR For African Americans > 60 (> 60); eGFR For Non-African Americans > 60 (> 60)
[2019-08-17] MEDS: Ascorbic Acid 500 MG TABLET PO SCH (06:49)
[2019-08-17] MEDS: Insulin LISPRO 300 UNITS/3 ML VIAL SQ SCH ×4 (08:15→20:56)
[2019-08-17] MEDS: FLUoxetine 20 MG CAPSULE PO SCH (08:17)
[2019-08-17] MEDS: Magnesium Oxide 400 MG TABLET PO SCH ×2 (08:17→20:55)
[2019-08-17] MEDS: *HR* Metformin 500 MG TABLET PO SCH ×2 (08:17→17:05)
[2019-08-17] MEDS: Pregabalin 50 MG CAPSULE PO SCH ×3 (08:17→20:55)
[2019-08-17] MEDS: Lactobacillus 1 EACH CAP.SPRINK PO SCH ×2 (08:17→20:55)
[2019-08-17] MEDS: Bumetanide 1 MG TABLET PO SCH ×2 (08:17→15:21)
[2019-08-17] MEDS: Cyanocobalamin (B-12) 1,000 MCG TABLET PO SCH (08:18)
[2019-08-17] MEDS: BuPROPion SR (12 HR) 150 MG TABLET PO SCH (08:18)
[2019-08-17] MEDS: Cholecalciferol (D-3) 1,000 UNIT (25MCG) TABLET PO SCH (08:18)
[2019-08-17] MEDS: Insulin DETEMIR 100 UNIT/ML X5UNITS SQ SCH ×2 (08:21→20:56)
[2019-08-17] MEDS: Dulaglutide [Trulicity] 1.5 MG SQ SCH (08:21)
[2019-08-17] MEDS: Methocarbamol 500 MG TABLET PO SCH (20:55)
[2019-08-17] MEDS: Melatonin 3 MG TABLET PO SCH (20:55)
[2019-08-17] MEDS: *HR* Rivaroxaban 10 MG TABLET PO SCH (20:55)
[2019-08-18] MEDS: MetroNIDAZOLE 500 MG/100 ML 500 MG/100 ML BAG IVPB SCH ×3 (00:40→16:22)
[2019-08-18] MEDS: Ascorbic Acid 500 MG TABLET PO SCH (06:25)
[2019-08-18] MEDS: *HR* OxyCODONE Immed Rel 5 MG TABLET PO PRN ×4 (06:27→21:18)
[2019-08-18] MEDS: Insulin LISPRO 300 UNITS/3 ML VIAL SQ SCH ×4 (07:59→21:17)
[2019-08-18] MEDS: Bumetanide 1 MG TABLET PO SCH ×2 (09:00→15:18)
[2019-08-18] MEDS: BuPROPion SR (12 HR) 150 MG TABLET PO SCH (09:01)
[2019-08-18] MEDS: *HR* Metformin 500 MG TABLET PO SCH ×2 (09:01→16:21)
[2019-08-18] MEDS: Cholecalciferol (D-3) 1,000 UNIT (25MCG) TABLET PO SCH (09:01)
[2019-08-18] MEDS: Pregabalin 50 MG CAPSULE PO SCH ×3 (09:01→21:17)
[2019-08-18] MEDS: FLUoxetine 20 MG CAPSULE PO SCH (09:01)
[2019-08-18] MEDS: Magnesium Oxide 400 MG TABLET PO SCH ×2 (09:01→21:17)
[2019-08-18] MEDS: Insulin DETEMIR 100 UNIT/ML X5UNITS SQ SCH ×2 (09:02→21:17)
[2019-08-18] MEDS: Cyanocobalamin (B-12) 1,000 MCG TABLET PO SCH (09:02)
[2019-08-18] MEDS: Lactobacillus 1 EACH CAP.SPRINK PO SCH ×2 (09:02→21:16)
[2019-08-18 20:19] LABS: Bilirubin,Urine Negative (Negative); Blood,Urine Negative (Negative); Clarity,Urine Clear (Clear); Glucose,Urine (UA) Normal (Normal); Ketones,Urine Negative (Negative); Leukocyte Esterase,Urine Trace (Negative); Nitrite,Urine Negative (Negative); Protein,Urine Negative (Neg-Trace); Urobilinogen,Urine Normal (Normal)
[2019-08-18 20:26] LABS: Color,Urine Light Yellow (Yellow)
[2019-08-18 20:37] LABS: WBC,Urine 0-3 per hpf (0-3)
[2019-08-18 20:38] LABS: Bacteria,Urine Few per hpf (None-Few); Squamous Epithelial Cell,Urine Few per lpf (None-Few); Yeast,Urine Few per hpf (None Seen)
[2019-08-18] MEDS: Melatonin 3 MG TABLET PO SCH (21:17)
[2019-08-18] MEDS: Methocarbamol 500 MG TABLET PO SCH (21:18)
[2019-08-18] MEDS: *HR* Rivaroxaban 10 MG TABLET PO SCH (21:18)
[2019-08-19] MEDS: MetroNIDAZOLE 500 MG/100 ML 500 MG/100 ML BAG IVPB SCH ×3 (00:13→18:00)
[2019-08-19] MEDS: *HR* OxyCODONE Immed Rel 5 MG TABLET PO PRN ×4 (01:13→21:21)
[2019-08-19] MEDS: hydrOXYzine pamoate 25 MG CAPSULE PO PRN ×3 (01:17→21:25)
[2019-08-19 06:21] LABS: Basophils % 0.5 %; Eosinophils # 0.3 K/mcL (0.0-0.6); Eosinophils % 4.3 %; Hematocrit 26.8 % (35.3-44.9); Hemoglobin 8.4 g/dL (11.5-15.4); Immature Granulocytes % 0.3 % (0-4); Lymphocytes # 0.9 K/mcL (0.6-4.6); Lymphocytes % 13.9 %; Mean Corpuscular HGB Conc 31.3 g/dL (31.6-35.5); Mean Corpuscular Hemoglobin 29.8 pg (28.0-33.3); Mean Platelet Volume 11.3 fL (9.4-12.4); Monocytes # 0.8 K/mcL (0.0-1.3); Monocytes % 12.4 %; Neutrophils # 4.5 K/mcL (1.6-8.9); Platelet Count 207 K/mcL (140-400); Red Blood Count 2.82 M/mcL (3.82-4.97); Segmented Neutrophils % 68.6 %; White Blood Count 6.5 K/mcL (4.3-11.1)
[2019-08-19 06:47] LABS: Alanine Aminotransferase 21 Units/L (7-52); Albumin/Globulin Ratio 1.2 (1.1-2.2); Alkaline Phosphatase 45 Units/L (34-104); Aspartate Amino Transferase 35 Units/L (13-39); BUN/Creatinine Ratio 29 (6-26); Bilirubin,Total 0.3 mg/dL (0.3-1.0); Blood Urea Nitrogen 18 mg/dL (6-20); Calcium 8.5 mg/dL (8.6-10.3); Carbon Dioxide 32 mEq/L (23-29); Chloride 101 mEq/L (98-107); Globulin 2.5 g/dL (2.4-3.5); Glucose 140 mg/dL (70-105); Magnesium 1.7 mg/dL (1.6-2.6); Osmolality,Calculated 292 (280-300); Potassium 3.3 mEq/L (3.5-5.1); Sodium 139 mEq/L (136-145); Total Protein 5.5 g/dL (6.4-8.9); eGFR For African Americans > 60 (> 60); eGFR For Non-African Americans > 60 (> 60)
[2019-08-19] MEDS: Ascorbic Acid 500 MG TABLET PO SCH (06:48)
[2019-08-19] MEDS: Insulin LISPRO 300 UNITS/3 ML VIAL SQ SCH ×4 (07:39→21:25)
[2019-08-19] MEDS: Bumetanide 1 MG TABLET PO SCH ×2 (09:04→15:12)
[2019-08-19] MEDS: Cholecalciferol (D-3) 1,000 UNIT (25MCG) TABLET PO SCH (09:05)
[2019-08-19] MEDS: FLUoxetine 20 MG CAPSULE PO SCH (09:05)
[2019-08-19] MEDS: Insulin DETEMIR 100 UNIT/ML X5UNITS SQ SCH ×2 (09:05→21:25)
[2019-08-19] MEDS: BuPROPion SR (12 HR) 150 MG TABLET PO SCH (09:06)
[2019-08-19] MEDS: Magnesium Oxide 400 MG TABLET PO SCH ×2 (09:06→21:21)
[2019-08-19] MEDS: Lactobacillus 1 EACH CAP.SPRINK PO SCH ×2 (09:06→21:20)
[2019-08-19] MEDS: Cyanocobalamin (B-12) 1,000 MCG TABLET PO SCH (09:06)
[2019-08-19] MEDS: Pregabalin 50 MG CAPSULE PO SCH ×3 (09:06→21:21)
[2019-08-19] MEDS: *HR* Metformin 500 MG TABLET PO SCH ×2 (09:06→16:56)
[2019-08-19] MEDS: Melatonin 3 MG TABLET PO SCH (21:20)
[2019-08-19] MEDS: Methocarbamol 500 MG TABLET PO SCH (21:20)
[2019-08-19] MEDS: *HR* Rivaroxaban 10 MG TABLET PO SCH (21:21)
[2019-08-20] MEDS: MetroNIDAZOLE 500 MG/100 ML 500 MG/100 ML BAG IVPB SCH ×3 (01:09→16:58)
[2019-08-20] MEDS: *HR* OxyCODONE Immed Rel 5 MG TABLET PO PRN ×5 (01:11→22:40)
[2019-08-20] MEDS: Ascorbic Acid 500 MG TABLET PO SCH (06:49)
[2019-08-20] MEDS: Insulin DETEMIR 100 UNIT/ML X5UNITS SQ SCH ×2 (08:52→22:41)
[2019-08-20] MEDS: Insulin LISPRO 300 UNITS/3 ML VIAL SQ SCH ×4 (08:53→22:42)
[2019-08-20] MEDS: FLUoxetine 20 MG CAPSULE PO SCH (08:57)
[2019-08-20] MEDS: hydrOXYzine pamoate 25 MG CAPSULE PO PRN ×3 (08:58→22:40)
[2019-08-20] MEDS: Magnesium Oxide 400 MG TABLET PO SCH ×2 (08:58→22:40)
[2019-08-20] MEDS: BuPROPion SR (12 HR) 150 MG TABLET PO SCH (08:58)
[2019-08-20] MEDS: *HR* Metformin 500 MG TABLET PO SCH ×2 (08:58→17:02)
[2019-08-20] MEDS: Cyanocobalamin (B-12) 1,000 MCG TABLET PO SCH (08:58)
[2019-08-20] MEDS: Bumetanide 1 MG TABLET PO SCH ×2 (08:58→15:14)
[2019-08-20] MEDS: Cholecalciferol (D-3) 1,000 UNIT (25MCG) TABLET PO SCH (08:58)
[2019-08-20] MEDS: Lactobacillus 1 EACH CAP.SPRINK PO SCH ×2 (08:58→22:40)
[2019-08-20] MEDS: Pregabalin 50 MG CAPSULE PO SCH ×2 (08:58→22:40)
[2019-08-20] MEDS: Methocarbamol 500 MG TABLET PO SCH (22:41)
[2019-08-20] MEDS: DiphenhydraMINE CREAM 28.4 GM TUBE TP PRN (22:41)
[2019-08-20] MEDS: *HR* Rivaroxaban 10 MG TABLET PO SCH (22:41)
[2019-08-20] MEDS: Melatonin 3 MG TABLET PO SCH (22:41)
[2019-08-21] MEDS: MetroNIDAZOLE 500 MG/100 ML 500 MG/100 ML BAG IVPB SCH ×3 (01:02→17:16)
[2019-08-21] MEDS: Ascorbic Acid 500 MG TABLET PO SCH (05:08)
[2019-08-21] MEDS: *HR* OxyCODONE Immed Rel 5 MG TABLET PO PRN ×4 (05:08→21:08)
[2019-08-21] MEDS: Insulin LISPRO 300 UNITS/3 ML VIAL SQ SCH ×4 (09:19→21:10)
[2019-08-21] MEDS: Insulin DETEMIR 100 UNIT/ML X5UNITS SQ SCH ×2 (09:49→21:09)
[2019-08-21] MEDS: Bumetanide 1 MG TABLET PO SCH ×2 (09:50→15:34)
[2019-08-21] MEDS: FLUoxetine 20 MG CAPSULE PO SCH (09:50)
[2019-08-21] MEDS: Cyanocobalamin (B-12) 1,000 MCG TABLET PO SCH (09:50)
[2019-08-21] MEDS: Cholecalciferol (D-3) 1,000 UNIT (25MCG) TABLET PO SCH (09:50)
[2019-08-21] MEDS: Lactobacillus 1 EACH CAP.SPRINK PO SCH ×2 (09:50→21:09)
[2019-08-21] MEDS: BuPROPion SR (12 HR) 150 MG TABLET PO SCH (09:50)
[2019-08-21] MEDS: Magnesium Oxide 400 MG TABLET PO SCH ×2 (09:51→21:08)
[2019-08-21] MEDS: hydrOXYzine pamoate 25 MG CAPSULE PO PRN ×2 (09:51→15:34)
[2019-08-21] MEDS: Pregabalin 50 MG CAPSULE PO SCH ×2 (09:51→21:08)
[2019-08-21] MEDS: *HR* Metformin 500 MG TABLET PO SCH ×2 (09:51→17:17)
[2019-08-21] MEDS: Methocarbamol 500 MG TABLET PO SCH (21:08)
[2019-08-21] MEDS: *HR* Rivaroxaban 10 MG TABLET PO SCH (21:08)
[2019-08-21] MEDS: Melatonin 3 MG TABLET PO SCH (21:09)
[2019-08-21] MEDS: DiphenhydraMINE CREAM 28.4 GM TUBE TP PRN (21:10)
[2019-08-22] MEDS: MetroNIDAZOLE 500 MG/100 ML 500 MG/100 ML BAG IVPB SCH ×3 (00:30→17:30)
[2019-08-22] MEDS: *HR* OxyCODONE Immed Rel 5 MG TABLET PO PRN ×5 (04:20→22:54)
[2019-08-22] MEDS: Ascorbic Acid 500 MG TABLET PO SCH (05:58)
[2019-08-22] MEDS: Insulin LISPRO 300 UNITS/3 ML VIAL SQ SCH ×4 (08:34→20:19)
[2019-08-22] MEDS: Lactobacillus 1 EACH CAP.SPRINK PO SCH ×2 (08:38→20:17)
[2019-08-22] MEDS: *HR* Metformin 500 MG TABLET PO SCH ×2 (08:38→17:29)
[2019-08-22] MEDS: FLUoxetine 20 MG CAPSULE PO SCH (08:39)
[2019-08-22] MEDS: Magnesium Oxide 400 MG TABLET PO SCH ×2 (08:39→20:17)
[2019-08-22] MEDS: Cholecalciferol (D-3) 1,000 UNIT (25MCG) TABLET PO SCH (08:39)
[2019-08-22] MEDS: BuPROPion SR (12 HR) 150 MG TABLET PO SCH (08:39)
[2019-08-22] MEDS: Bumetanide 1 MG TABLET PO SCH ×2 (08:39→14:43)
[2019-08-22] MEDS: Cyanocobalamin (B-12) 1,000 MCG TABLET PO SCH (08:39)
[2019-08-22] MEDS: Pregabalin 50 MG CAPSULE PO SCH (08:40)
[2019-08-22] MEDS: Insulin DETEMIR 100 UNIT/ML X5UNITS SQ SCH ×2 (08:46→20:19)
[2019-08-22] MEDS: *HR* Rivaroxaban 10 MG TABLET PO SCH (20:17)
[2019-08-22] MEDS: Methocarbamol 500 MG TABLET PO SCH (20:17)
[2019-08-22] MEDS: Melatonin 3 MG TABLET PO SCH (20:17)
[2019-08-22] MEDS: hydrOXYzine pamoate 25 MG CAPSULE PO PRN (22:54)
[2019-08-23] MEDS: MetroNIDAZOLE 500 MG/100 ML 500 MG/100 ML BAG IVPB SCH ×3 (01:03→17:24)
[2019-08-23] MEDS: *HR* OxyCODONE Immed Rel 5 MG TABLET PO PRN ×5 (05:06→22:57)
[2019-08-23] MEDS: Ascorbic Acid 500 MG TABLET PO SCH (05:29)
[2019-08-23 06:12] LABS: Basophils # 0.1 K/mcL (0.0-0.2); Basophils % 0.9 %; Eosinophils # 0.3 K/mcL (0.0-0.6); Hematocrit 27.8 % (35.3-44.9); Hemoglobin 8.8 g/dL (11.5-15.4); Immature Granulocytes % 1.2 % (0-4); Lymphocytes % 15.4 %; Mean Corpuscular HGB Conc 31.7 g/dL (31.6-35.5); Mean Corpuscular Hemoglobin 29.5 pg (28.0-33.3); Mean Corpuscular Volume 93.3 fL (83.0-100.0); Monocytes # 0.7 K/mcL (0.0-1.3); Neutrophils # 4.4 K/mcL (1.6-8.9); Platelet Count 245 K/mcL (140-400); Red Blood Count 2.98 M/mcL (3.82-4.97); Red Cell Distribution Width 14.3 % (11.5-14.5); Segmented Neutrophils % 67.5 %; White Blood Count 6.6 K/mcL (4.3-11.1)
[2019-08-23 06:55] LABS: BUN/Creatinine Ratio 28 (6-26); Blood Urea Nitrogen 19 mg/dL (6-20); Carbon Dioxide 34 mEq/L (23-29); Chloride 101 mEq/L (98-107); Glucose 102 mg/dL (70-105); Magnesium 1.8 mg/dL (1.6-2.6); Osmolality,Calculated 290 (280-300); Potassium 3.8 mEq/L (3.5-5.1); Sodium 139 mEq/L (136-145); eGFR For African Americans > 60 (> 60); eGFR For Non-African Americans > 60 (> 60)
[2019-08-23] MEDS: Insulin LISPRO 300 UNITS/3 ML VIAL SQ SCH ×4 (07:44→20:53)
[2019-08-23] MEDS: BuPROPion SR (12 HR) 150 MG TABLET PO SCH (09:15)
[2019-08-23] MEDS: FLUoxetine 20 MG CAPSULE PO SCH (09:15)
[2019-08-23] MEDS: Bumetanide 1 MG TABLET PO SCH ×2 (09:15→14:25)
[2019-08-23] MEDS: Lactobacillus 1 EACH CAP.SPRINK PO SCH ×2 (09:15→20:52)
[2019-08-23] MEDS: Magnesium Oxide 400 MG TABLET PO SCH ×2 (09:15→20:52)
[2019-08-23] MEDS: Cholecalciferol (D-3) 1,000 UNIT (25MCG) TABLET PO SCH (09:16)
[2019-08-23] MEDS: Cyanocobalamin (B-12) 1,000 MCG TABLET PO SCH (09:16)
[2019-08-23] MEDS: *HR* Metformin 500 MG TABLET PO SCH ×2 (09:16→17:24)
[2019-08-23] MEDS: Insulin DETEMIR 100 UNIT/ML X5UNITS SQ SCH ×2 (09:21→20:53)
[2019-08-23] MEDS: hydrOXYzine pamoate 25 MG CAPSULE PO PRN (14:25)
[2019-08-23] MEDS: Methocarbamol 500 MG TABLET PO SCH (20:52)
[2019-08-23] MEDS: Melatonin 3 MG TABLET PO SCH (20:52)
[2019-08-23] MEDS: *HR* Rivaroxaban 10 MG TABLET PO SCH (20:58)
[2019-08-24] MEDS: MetroNIDAZOLE 500 MG/100 ML 500 MG/100 ML BAG IVPB SCH ×3 (01:44→17:41)
[2019-08-24] MEDS: hydrOXYzine pamoate 25 MG CAPSULE PO PRN ×2 (01:45→16:19)
[2019-08-24] MEDS: Ascorbic Acid 500 MG TABLET PO SCH (06:06)
[2019-08-24] MEDS: *HR* OxyCODONE Immed Rel 5 MG TABLET PO PRN ×4 (06:06→20:50)
[2019-08-24] MEDS: Cyanocobalamin (B-12) 1,000 MCG TABLET PO SCH (09:52)
[2019-08-24] MEDS: Lactobacillus 1 EACH CAP.SPRINK PO SCH ×2 (09:52→20:50)
[2019-08-24] MEDS: Bumetanide 1 MG TABLET PO SCH ×2 (09:52→15:47)
[2019-08-24] MEDS: FLUoxetine 20 MG CAPSULE PO SCH (09:52)
[2019-08-24] MEDS: Insulin LISPRO 300 UNITS/3 ML VIAL SQ SCH ×4 (09:53→20:50)
[2019-08-24] MEDS: Magnesium Oxide 400 MG TABLET PO SCH ×2 (09:53→20:50)
[2019-08-24] MEDS: *HR* Metformin 500 MG TABLET PO SCH ×2 (09:53→17:41)
[2019-08-24] MEDS: Cholecalciferol (D-3) 1,000 UNIT (25MCG) TABLET PO SCH (09:53)
[2019-08-24] MEDS: BuPROPion SR (12 HR) 150 MG TABLET PO SCH (10:15)
[2019-08-24] MEDS: Dulaglutide [Trulicity] 1.5 MG SQ SCH (10:15)
[2019-08-24] MEDS: Insulin DETEMIR 100 UNIT/ML X5UNITS SQ SCH ×2 (10:20→20:50)
[2019-08-24] MEDS: *HR* Rivaroxaban 10 MG TABLET PO SCH (20:50)
[2019-08-24] MEDS: Melatonin 3 MG TABLET PO SCH (20:50)
[2019-08-24] MEDS: Methocarbamol 500 MG TABLET PO SCH (20:50)
[2019-08-25] MEDS: MetroNIDAZOLE 500 MG/100 ML 500 MG/100 ML BAG IVPB SCH ×3 (01:37→16:58)
[2019-08-25] MEDS: Ascorbic Acid 500 MG TABLET PO SCH (04:43)
[2019-08-25] MEDS: *HR* OxyCODONE Immed Rel 5 MG TABLET PO PRN ×4 (04:43→21:25)
[2019-08-25] MEDS: hydrOXYzine pamoate 25 MG CAPSULE PO PRN ×3 (06:22→20:29)
[2019-08-25] MEDS: Insulin LISPRO 300 UNITS/3 ML VIAL SQ SCH ×4 (09:44→20:26)
[2019-08-25] MEDS: Bumetanide 1 MG TABLET PO SCH ×2 (09:44→15:13)
[2019-08-25] MEDS: Cyanocobalamin (B-12) 1,000 MCG TABLET PO SCH (09:45)
[2019-08-25] MEDS: Lactobacillus 1 EACH CAP.SPRINK PO SCH ×2 (09:45→20:23)
[2019-08-25] MEDS: FLUoxetine 20 MG CAPSULE PO SCH (09:45)
[2019-08-25] MEDS: *HR* Metformin 500 MG TABLET PO SCH ×2 (09:45→16:57)
[2019-08-25] MEDS: BuPROPion SR (12 HR) 150 MG TABLET PO SCH (09:45)
[2019-08-25] MEDS: Cholecalciferol (D-3) 1,000 UNIT (25MCG) TABLET PO SCH (09:45)
[2019-08-25] MEDS: Magnesium Oxide 400 MG TABLET PO SCH ×2 (09:45→20:23)
[2019-08-25] MEDS: Insulin DETEMIR 100 UNIT/ML X5UNITS SQ SCH ×2 (09:46→20:23)
[2019-08-25] MEDS: Ammonium Lactate 30 APPL/225 GM BOTTLE TP SCH (18:45)
[2019-08-25] MEDS: Methocarbamol 500 MG TABLET PO SCH (20:23)
[2019-08-25] MEDS: *HR* Rivaroxaban 10 MG TABLET PO SCH (20:23)
[2019-08-25] MEDS: Melatonin 3 MG TABLET PO SCH (20:23)
[2019-08-26] MEDS: MetroNIDAZOLE 500 MG/100 ML 500 MG/100 ML BAG IVPB SCH ×3 (00:37→19:06)
[2019-08-26] MEDS: *HR* OxyCODONE Immed Rel 5 MG TABLET PO PRN ×5 (01:45→20:50)
[2019-08-26] MEDS: Ascorbic Acid 500 MG TABLET PO SCH (06:16)
[2019-08-26] MEDS: Insulin LISPRO 300 UNITS/3 ML VIAL SQ SCH ×4 (07:59→20:51)
[2019-08-26] MEDS: BuPROPion SR (12 HR) 150 MG TABLET PO SCH (08:02)
[2019-08-26] MEDS: Cyanocobalamin (B-12) 1,000 MCG TABLET PO SCH (08:02)
[2019-08-26] MEDS: Magnesium Oxide 400 MG TABLET PO SCH ×2 (08:02→20:50)
[2019-08-26] MEDS: Cholecalciferol (D-3) 1,000 UNIT (25MCG) TABLET PO SCH (08:02)
[2019-08-26] MEDS: Lactobacillus 1 EACH CAP.SPRINK PO SCH ×2 (08:02→20:50)
[2019-08-26] MEDS: *HR* Metformin 500 MG TABLET PO SCH ×2 (08:02→17:10)
[2019-08-26] MEDS: Bumetanide 1 MG TABLET PO SCH ×2 (08:02→15:40)
[2019-08-26] MEDS: FLUoxetine 20 MG CAPSULE PO SCH (08:02)
[2019-08-26] MEDS: Insulin DETEMIR 100 UNIT/ML X5UNITS SQ SCH ×2 (08:03→20:51)
[2019-08-26] MEDS: Ammonium Lactate 30 APPL/225 GM BOTTLE TP SCH (08:04)
[2019-08-26] MEDS: *HR* Rivaroxaban 10 MG TABLET PO SCH (20:49)
[2019-08-26] MEDS: Melatonin 3 MG TABLET PO SCH (20:49)
[2019-08-26] MEDS: Methocarbamol 500 MG TABLET PO SCH (20:51)
[2019-08-26] MEDS: hydrOXYzine pamoate 25 MG CAPSULE PO PRN (20:51)
[2019-08-27] MEDS: MetroNIDAZOLE 500 MG/100 ML 500 MG/100 ML BAG IVPB SCH ×4 (02:28→18:36)
[2019-08-27] MEDS: *HR* OxyCODONE Immed Rel 5 MG TABLET PO PRN ×4 (02:53→19:50)
[2019-08-27] MEDS: Ascorbic Acid 500 MG TABLET PO SCH (05:47)
[2019-08-27] MEDS: hydrOXYzine pamoate 25 MG CAPSULE PO PRN ×2 (05:49→15:39)
[2019-08-27] MEDS: Insulin DETEMIR 100 UNIT/ML X5UNITS SQ SCH ×2 (09:16→19:51)
[2019-08-27] MEDS: Insulin LISPRO 300 UNITS/3 ML VIAL SQ SCH ×4 (09:26→19:48)
[2019-08-27] MEDS: Bumetanide 1 MG TABLET PO SCH ×2 (10:06→15:40)
[2019-08-27] MEDS: Magnesium Oxide 400 MG TABLET PO SCH ×2 (10:06→19:49)
[2019-08-27] MEDS: Lactobacillus 1 EACH CAP.SPRINK PO SCH ×2 (10:07→19:49)
[2019-08-27] MEDS: FLUoxetine 20 MG CAPSULE PO SCH (10:07)
[2019-08-27] MEDS: Cyanocobalamin (B-12) 1,000 MCG TABLET PO SCH (10:07)
[2019-08-27] MEDS: BuPROPion SR (12 HR) 150 MG TABLET PO SCH (10:07)
[2019-08-27] MEDS: *HR* Metformin 500 MG TABLET PO SCH ×2 (10:07→17:19)
[2019-08-27] MEDS: Cholecalciferol (D-3) 1,000 UNIT (25MCG) TABLET PO SCH (10:08)
[2019-08-27] MEDS: Ammonium Lactate 30 APPL/225 GM BOTTLE TP SCH (11:44)
[2019-08-27] MEDS: Melatonin 3 MG TABLET PO SCH (19:50)
[2019-08-27] MEDS: Methocarbamol 500 MG TABLET PO SCH (19:51)
[2019-08-27] MEDS: *HR* Rivaroxaban 10 MG TABLET PO SCH (19:51)
[2019-08-28] MEDS: MetroNIDAZOLE 500 MG/100 ML 500 MG/100 ML BAG IVPB SCH ×3 (03:05→18:39)
[2019-08-28] MEDS: *HR* OxyCODONE Immed Rel 5 MG TABLET PO PRN ×4 (03:07→21:56)
[2019-08-28] MEDS: Ascorbic Acid 500 MG TABLET PO SCH (05:54)
[2019-08-28] MEDS: Insulin LISPRO 300 UNITS/3 ML VIAL SQ SCH ×4 (07:38→20:07)
[2019-08-28] MEDS: Insulin DETEMIR 100 UNIT/ML X5UNITS SQ SCH ×2 (09:36→20:08)
[2019-08-28] MEDS: FLUoxetine 20 MG CAPSULE PO SCH (09:37)
[2019-08-28] MEDS: Magnesium Oxide 400 MG TABLET PO SCH ×2 (09:37→20:09)
[2019-08-28] MEDS: Cyanocobalamin (B-12) 1,000 MCG TABLET PO SCH (09:37)
[2019-08-28] MEDS: Bumetanide 1 MG TABLET PO SCH ×2 (09:37→14:44)
[2019-08-28] MEDS: *HR* Metformin 500 MG TABLET PO SCH ×2 (09:37→16:58)
[2019-08-28] MEDS: Cholecalciferol (D-3) 1,000 UNIT (25MCG) TABLET PO SCH (09:38)
[2019-08-28] MEDS: Ammonium Lactate 30 APPL/225 GM BOTTLE TP SCH (09:38)
[2019-08-28] MEDS: BuPROPion SR (12 HR) 150 MG TABLET PO SCH (09:38)
[2019-08-28] MEDS: Lactobacillus 1 EACH CAP.SPRINK PO SCH ×2 (09:38→20:08)
[2019-08-28] MEDS: *HR* Rivaroxaban 10 MG TABLET PO SCH (20:08)
[2019-08-28] MEDS: Methocarbamol 500 MG TABLET PO SCH (20:09)
[2019-08-28] MEDS: Melatonin 3 MG TABLET PO SCH (20:09)
[2019-08-29] MEDS: *HR* OxyCODONE Immed Rel 5 MG TABLET PO PRN ×5 (02:31→23:21)
[2019-08-29] MEDS: MetroNIDAZOLE 500 MG/100 ML 500 MG/100 ML BAG IVPB SCH ×3 (02:35→18:19)
[2019-08-29] MEDS: Ascorbic Acid 500 MG TABLET PO SCH (06:20)
[2019-08-29 06:56] LABS: Basophils # 0.1 K/mcL (0.0-0.2); Eosinophils # 0.4 K/mcL (0.0-0.6); Eosinophils % 5.4 %; Hematocrit 30.6 % (35.3-44.9); Hemoglobin 9.7 g/dL (11.5-15.4); Immature Granulocytes % 0.6 % (0-4); Lymphocytes # 1.2 K/mcL (0.6-4.6); Lymphocytes % 17.1 %; Mean Corpuscular HGB Conc 31.7 g/dL (31.6-35.5); Mean Corpuscular Hemoglobin 29.4 pg (28.0-33.3); Mean Corpuscular Volume 92.7 fL (83.0-100.0); Mean Platelet Volume 10.7 fL (9.4-12.4); Monocytes # 0.7 K/mcL (0.0-1.3); Monocytes % 10.1 %; Neutrophils # 4.8 K/mcL (1.6-8.9); Platelet Count 281 K/mcL (140-400); Red Cell Distribution Width 14.9 % (11.5-14.5); Segmented Neutrophils % 65.8 %; White Blood Count 7.3 K/mcL (4.3-11.1)
[2019-08-29 07:16] LABS: BUN/Creatinine Ratio 31 (6-26); Blood Urea Nitrogen 20 mg/dL (6-20); Calcium 8.9 mg/dL (8.6-10.3); Carbon Dioxide 31 mEq/L (23-29); Chloride 102 mEq/L (98-107); Glucose 125 mg/dL (70-105); Magnesium 1.9 mg/dL (1.6-2.6); Osmolality,Calculated 292 (280-300); Sodium 139 mEq/L (136-145); eGFR For African Americans > 60 (> 60); eGFR For Non-African Americans > 60 (> 60)
[2019-08-29] MEDS: Lactobacillus 1 EACH CAP.SPRINK PO SCH ×2 (08:10→20:56)
[2019-08-29] MEDS: *HR* Metformin 500 MG TABLET PO SCH ×2 (08:10→16:05)
[2019-08-29] MEDS: Bumetanide 1 MG TABLET PO SCH ×2 (08:10→14:13)
[2019-08-29] MEDS: Magnesium Oxide 400 MG TABLET PO SCH ×2 (08:10→20:56)
[2019-08-29] MEDS: FLUoxetine 20 MG CAPSULE PO SCH (08:10)
[2019-08-29] MEDS: Cholecalciferol (D-3) 1,000 UNIT (25MCG) TABLET PO SCH (08:10)
[2019-08-29] MEDS: Cyanocobalamin (B-12) 1,000 MCG TABLET PO SCH (08:11)
[2019-08-29] MEDS: BuPROPion SR (12 HR) 150 MG TABLET PO SCH (08:11)
[2019-08-29] MEDS: Insulin DETEMIR 100 UNIT/ML X5UNITS SQ SCH ×2 (08:12→19:38)
[2019-08-29] MEDS: Insulin LISPRO 300 UNITS/3 ML VIAL SQ SCH ×4 (08:12→19:39)
[2019-08-29] MEDS: Ammonium Lactate 30 APPL/225 GM BOTTLE TP SCH (08:13)
[2019-08-29] MEDS: Nystatin POWDER 30 GM BOTTLE TP SCH ×2 (10:16→19:39)
[2019-08-29] MEDS: hydrOXYzine pamoate 25 MG CAPSULE PO PRN ×2 (16:05→23:22)
[2019-08-29] MEDS: Melatonin 3 MG TABLET PO SCH (20:56)
[2019-08-29] MEDS: *HR* Rivaroxaban 10 MG TABLET PO SCH (20:56)
[2019-08-29] MEDS: Methocarbamol 500 MG TABLET PO SCH (20:56)
[2019-08-30] MEDS: MetroNIDAZOLE 500 MG/100 ML 500 MG/100 ML BAG IVPB SCH ×3 (02:29→21:24)
[2019-08-30] MEDS: *HR* OxyCODONE Immed Rel 5 MG TABLET PO PRN ×4 (05:43→21:26)
[2019-08-30] MEDS: Ascorbic Acid 500 MG TABLET PO SCH (05:43)
[2019-08-30] MEDS: Bumetanide 1 MG TABLET PO SCH ×2 (08:13→14:13)
[2019-08-30] MEDS: BuPROPion SR (12 HR) 150 MG TABLET PO SCH (08:14)
[2019-08-30] MEDS: FLUoxetine 20 MG CAPSULE PO SCH (08:14)
[2019-08-30] MEDS: *HR* Metformin 500 MG TABLET PO SCH ×2 (08:14→17:03)
[2019-08-30] MEDS: Cyanocobalamin (B-12) 1,000 MCG TABLET PO SCH (08:15)
[2019-08-30] MEDS: Magnesium Oxide 400 MG TABLET PO SCH ×2 (08:15→21:25)
[2019-08-30] MEDS: Lactobacillus 1 EACH CAP.SPRINK PO SCH ×2 (08:15→21:25)
[2019-08-30] MEDS: Insulin DETEMIR 100 UNIT/ML X5UNITS SQ SCH ×2 (08:15→21:38)
[2019-08-30] MEDS: Cholecalciferol (D-3) 1,000 UNIT (25MCG) TABLET PO SCH (08:15)
[2019-08-30] MEDS: Ammonium Lactate 30 APPL/225 GM BOTTLE TP SCH (08:25)
[2019-08-30] MEDS: Nystatin POWDER 30 GM BOTTLE TP SCH ×2 (08:25→21:26)
[2019-08-30] MEDS: Insulin LISPRO 300 UNITS/3 ML VIAL SQ SCH ×4 (08:26→21:38)
[2019-08-30] MEDS: hydrOXYzine pamoate 25 MG CAPSULE PO PRN (21:25)
[2019-08-30] MEDS: Methocarbamol 500 MG TABLET PO SCH (21:25)
[2019-08-30] MEDS: Melatonin 3 MG TABLET PO SCH (21:26)
[2019-08-30] MEDS: *HR* Rivaroxaban 10 MG TABLET PO SCH (21:26)
[2019-08-31] MEDS: MetroNIDAZOLE 500 MG/100 ML 500 MG/100 ML BAG IVPB SCH ×3 (03:40→21:04)
[2019-08-31] MEDS: Ascorbic Acid 500 MG TABLET PO SCH (05:44)
[2019-08-31] MEDS: *HR* OxyCODONE Immed Rel 5 MG TABLET PO PRN ×3 (05:44→22:33)
[2019-08-31] MEDS: BuPROPion SR (12 HR) 150 MG TABLET PO SCH (08:11)
[2019-08-31] MEDS: Lactobacillus 1 EACH CAP.SPRINK PO SCH ×2 (08:11→21:02)
[2019-08-31] MEDS: Bumetanide 1 MG TABLET PO SCH ×2 (08:11→14:21)
[2019-08-31] MEDS: Cyanocobalamin (B-12) 1,000 MCG TABLET PO SCH (08:11)
[2019-08-31] MEDS: Magnesium Oxide 400 MG TABLET PO SCH ×2 (08:11→21:02)
[2019-08-31] MEDS: Cholecalciferol (D-3) 1,000 UNIT (25MCG) TABLET PO SCH (08:11)
[2019-08-31] MEDS: *HR* Metformin 500 MG TABLET PO SCH ×2 (08:11→17:53)
[2019-08-31] MEDS: FLUoxetine 20 MG CAPSULE PO SCH (08:11)
[2019-08-31] MEDS: Insulin DETEMIR 100 UNIT/ML X5UNITS SQ SCH ×2 (08:12→21:01)
[2019-08-31] MEDS: Insulin LISPRO 300 UNITS/3 ML VIAL SQ SCH ×4 (08:12→21:05)
[2019-08-31] MEDS: Nystatin POWDER 30 GM BOTTLE TP SCH ×2 (08:13→21:24)
[2019-08-31] MEDS: Dulaglutide [Trulicity] 1.5 MG SQ SCH (08:15)
[2019-08-31] MEDS: Ammonium Lactate 30 APPL/225 GM BOTTLE TP SCH (08:16)
[2019-08-31] MEDS: hydrOXYzine pamoate 25 MG CAPSULE PO PRN (21:01)
[2019-08-31] MEDS: Methocarbamol 500 MG TABLET PO SCH (21:02)
[2019-08-31] MEDS: Melatonin 3 MG TABLET PO SCH (21:02)
[2019-08-31] MEDS: *HR* Rivaroxaban 10 MG TABLET PO SCH (21:03)
[2019-09-01] MEDS: MetroNIDAZOLE 500 MG/100 ML 500 MG/100 ML BAG IVPB SCH ×3 (04:20→18:48)
[2019-09-01] MEDS: Ascorbic Acid 500 MG TABLET PO SCH (06:32)
[2019-09-01] MEDS: *HR* OxyCODONE Immed Rel 5 MG TABLET PO PRN ×4 (06:35→21:45)
[2019-09-01 07:09] LABS: Basophils # 0.1 K/mcL (0.0-0.2); Eosinophils # 0.4 K/mcL (0.0-0.6); Eosinophils % 4.8 %; Hematocrit 32.8 % (35.3-44.9); Hemoglobin 10.7 g/dL (11.5-15.4); Immature Granulocytes % 0.6 % (0-4); Lymphocytes # 1.3 K/mcL (0.6-4.6); Lymphocytes % 16.8 %; Mean Corpuscular HGB Conc 32.6 g/dL (31.6-35.5); Mean Corpuscular Hemoglobin 29.8 pg (28.0-33.3); Mean Corpuscular Volume 91.4 fL (83.0-100.0); Monocytes # 0.7 K/mcL (0.0-1.3); Monocytes % 8.9 %; Neutrophils # 5.3 K/mcL (1.6-8.9); Platelet Count 312 K/mcL (140-400); Red Blood Count 3.59 M/mcL (3.82-4.97); Red Cell Distribution Width 14.8 % (11.5-14.5); Segmented Neutrophils % 67.9 %; White Blood Count 7.8 K/mcL (4.3-11.1)
[2019-09-01 07:35] LABS: BUN/Creatinine Ratio 35 (6-26); Blood Urea Nitrogen 24 mg/dL (6-20); Calcium 9.3 mg/dL (8.6-10.3); Carbon Dioxide 33 mEq/L (23-29); Chloride 100 mEq/L (98-107); Glucose 134 mg/dL (70-105); Magnesium 1.8 mg/dL (1.6-2.6); Osmolality,Calculated 294 (280-300); Potassium 3.9 mEq/L (3.5-5.1); Sodium 139 mEq/L (136-145); eGFR For African Americans > 60 (> 60); eGFR For Non-African Americans > 60 (> 60)
[2019-09-01] MEDS: Insulin LISPRO 300 UNITS/3 ML VIAL SQ SCH ×4 (08:33→21:46)
[2019-09-01] MEDS: Insulin DETEMIR 100 UNIT/ML X5UNITS SQ SCH ×2 (08:38→21:45)
[2019-09-01] MEDS: *HR* Metformin 500 MG TABLET PO SCH ×2 (08:39→17:07)
[2019-09-01] MEDS: Bumetanide 1 MG TABLET PO SCH ×2 (08:39→15:28)
[2019-09-01] MEDS: Magnesium Oxide 400 MG TABLET PO SCH ×2 (08:39→21:45)
[2019-09-01] MEDS: Lactobacillus 1 EACH CAP.SPRINK PO SCH ×2 (08:39→21:45)
[2019-09-01] MEDS: FLUoxetine 20 MG CAPSULE PO SCH (08:39)
[2019-09-01] MEDS: Nystatin POWDER 30 GM BOTTLE TP SCH ×2 (08:40→21:46)
[2019-09-01] MEDS: Cyanocobalamin (B-12) 1,000 MCG TABLET PO SCH (08:40)
[2019-09-01] MEDS: Cholecalciferol (D-3) 1,000 UNIT (25MCG) TABLET PO SCH (08:40)
[2019-09-01] MEDS: BuPROPion SR (12 HR) 150 MG TABLET PO SCH (08:40)
[2019-09-01] MEDS: hydrOXYzine pamoate 25 MG CAPSULE PO PRN ×2 (08:40→17:07)
[2019-09-01] MEDS: Ammonium Lactate 30 APPL/225 GM BOTTLE TP SCH (08:43)
[2019-09-01] MEDS: Melatonin 3 MG TABLET PO SCH (21:44)
[2019-09-01] MEDS: *HR* Rivaroxaban 10 MG TABLET PO SCH (21:44)
[2019-09-01] MEDS: Methocarbamol 500 MG TABLET PO SCH (21:44)
[2019-09-02] MEDS: MetroNIDAZOLE 500 MG/100 ML 500 MG/100 ML BAG IVPB SCH ×3 (03:45→18:50)
[2019-09-02] MEDS: *HR* OxyCODONE Immed Rel 5 MG TABLET PO PRN ×5 (03:45→21:31)
[2019-09-02] MEDS: Ascorbic Acid 500 MG TABLET PO SCH (06:54)
[2019-09-02] MEDS: Insulin DETEMIR 100 UNIT/ML X5UNITS SQ SCH ×2 (08:35→21:32)
[2019-09-02] MEDS: *HR* Metformin 500 MG TABLET PO SCH ×2 (08:36→16:56)
[2019-09-02] MEDS: Lactobacillus 1 EACH CAP.SPRINK PO SCH ×2 (08:36→21:31)
[2019-09-02] MEDS: Bumetanide 1 MG TABLET PO SCH ×2 (08:36→15:24)
[2019-09-02] MEDS: FLUoxetine 20 MG CAPSULE PO SCH (08:36)
[2019-09-02] MEDS: Magnesium Oxide 400 MG TABLET PO SCH ×2 (08:37→21:31)
[2019-09-02] MEDS: Cyanocobalamin (B-12) 1,000 MCG TABLET PO SCH (08:37)
[2019-09-02] MEDS: BuPROPion SR (12 HR) 150 MG TABLET PO SCH (08:37)
[2019-09-02] MEDS: Cholecalciferol (D-3) 1,000 UNIT (25MCG) TABLET PO SCH (08:37)
[2019-09-02] MEDS: hydrOXYzine pamoate 25 MG CAPSULE PO PRN ×2 (08:38→21:31)
[2019-09-02] MEDS: Insulin LISPRO 300 UNITS/3 ML VIAL SQ SCH ×4 (08:39→21:32)
[2019-09-02] MEDS: Nystatin POWDER 30 GM BOTTLE TP SCH ×2 (08:39→21:34)
[2019-09-02] MEDS: Ammonium Lactate 30 APPL/225 GM BOTTLE TP SCH (08:43)
[2019-09-02] MEDS: Methocarbamol 500 MG TABLET PO SCH (21:31)
[2019-09-02] MEDS: Melatonin 3 MG TABLET PO SCH (21:32)
[2019-09-02] MEDS: *HR* Rivaroxaban 10 MG TABLET PO SCH (21:36)
[2019-09-03] MEDS: MetroNIDAZOLE 500 MG/100 ML 500 MG/100 ML BAG IVPB SCH ×3 (03:29→19:46)
[2019-09-03] MEDS: Ascorbic Acid 500 MG TABLET PO SCH (06:59)
[2019-09-03] MEDS: *HR* OxyCODONE Immed Rel 5 MG TABLET PO PRN ×4 (07:06→21:34)
[2019-09-03] MEDS: Ammonium Lactate 30 APPL/225 GM BOTTLE TP SCH (08:47)
[2019-09-03] MEDS: Insulin DETEMIR 100 UNIT/ML X5UNITS SQ SCH ×2 (08:48→21:35)
[2019-09-03] MEDS: Insulin LISPRO 300 UNITS/3 ML VIAL SQ SCH ×4 (08:48→21:35)
[2019-09-03] MEDS: FLUoxetine 20 MG CAPSULE PO SCH (08:51)
[2019-09-03] MEDS: *HR* Metformin 500 MG TABLET PO SCH ×2 (08:51→17:36)
[2019-09-03] MEDS: Magnesium Oxide 400 MG TABLET PO SCH ×2 (08:51→21:34)
[2019-09-03] MEDS: Cyanocobalamin (B-12) 1,000 MCG TABLET PO SCH (08:51)
[2019-09-03] MEDS: Bumetanide 1 MG TABLET PO SCH ×2 (08:51→15:10)
[2019-09-03] MEDS: Cholecalciferol (D-3) 1,000 UNIT (25MCG) TABLET PO SCH (08:52)
[2019-09-03] MEDS: Lactobacillus 1 EACH CAP.SPRINK PO SCH ×2 (08:52→21:33)
[2019-09-03] MEDS: Nystatin POWDER 30 GM BOTTLE TP SCH ×2 (08:52→21:40)
[2019-09-03] MEDS: BuPROPion SR (12 HR) 150 MG TABLET PO SCH (08:52)
[2019-09-03] MEDS: hydrOXYzine pamoate 25 MG CAPSULE PO PRN (08:52)
[2019-09-03] MEDS: Melatonin 3 MG TABLET PO SCH (21:33)
[2019-09-03] MEDS: *HR* Rivaroxaban 10 MG TABLET PO SCH (21:34)
[2019-09-03] MEDS: Methocarbamol 500 MG TABLET PO SCH (21:34)
[2019-09-04] MEDS: hydrOXYzine pamoate 25 MG CAPSULE PO PRN ×2 (00:19→08:36)
[2019-09-04] MEDS: *HR* OxyCODONE Immed Rel 5 MG TABLET PO PRN ×5 (03:42→21:28)
[2019-09-04] MEDS: MetroNIDAZOLE 500 MG/100 ML 500 MG/100 ML BAG IVPB SCH ×3 (03:42→19:00)
[2019-09-04] MEDS: Ascorbic Acid 500 MG TABLET PO SCH (06:42)
[2019-09-04] MEDS: Insulin LISPRO 300 UNITS/3 ML VIAL SQ SCH ×4 (08:33→21:29)
[2019-09-04] MEDS: Insulin DETEMIR 100 UNIT/ML X5UNITS SQ SCH ×2 (08:33→21:29)
[2019-09-04] MEDS: Bumetanide 1 MG TABLET PO SCH ×2 (08:35→15:38)
[2019-09-04] MEDS: BuPROPion SR (12 HR) 150 MG TABLET PO SCH (08:35)
[2019-09-04] MEDS: Cyanocobalamin (B-12) 1,000 MCG TABLET PO SCH (08:36)
[2019-09-04] MEDS: FLUoxetine 20 MG CAPSULE PO SCH (08:36)
[2019-09-04] MEDS: Cholecalciferol (D-3) 1,000 UNIT (25MCG) TABLET PO SCH (08:36)
[2019-09-04] MEDS: Magnesium Oxide 400 MG TABLET PO SCH ×2 (08:36→21:28)
[2019-09-04] MEDS: *HR* Metformin 500 MG TABLET PO SCH ×2 (08:36→17:01)
[2019-09-04] MEDS: Lactobacillus 1 EACH CAP.SPRINK PO SCH ×2 (08:36→21:29)
[2019-09-04] MEDS: Ammonium Lactate 30 APPL/225 GM BOTTLE TP SCH (08:40)
[2019-09-04] MEDS: Nystatin POWDER 30 GM BOTTLE TP SCH ×2 (08:40→21:36)
[2019-09-04] MEDS: *HR* Rivaroxaban 10 MG TABLET PO SCH (21:28)
[2019-09-04] MEDS: Methocarbamol 500 MG TABLET PO SCH (21:28)
[2019-09-04] MEDS: Melatonin 3 MG TABLET PO SCH (21:28)
[2019-09-05] MEDS: *HR* OxyCODONE Immed Rel 5 MG TABLET PO PRN ×6 (01:15→22:06)
[2019-09-05] MEDS: MetroNIDAZOLE 500 MG/100 ML 500 MG/100 ML BAG IVPB SCH ×3 (03:35→19:03)
[2019-09-05] MEDS: Ascorbic Acid 500 MG TABLET PO SCH (06:12)
[2019-09-05 08:18] LABS: Basophils # 0.1 K/mcL (0.0-0.2); Basophils % 0.9 %; Eosinophils # 0.2 K/mcL (0.0-0.6); Eosinophils % 2.9 %; Hematocrit 35.4 % (35.3-44.9); Hemoglobin 11.3 g/dL (11.5-15.4); Immature Granulocytes % 0.6 % (0-4); Lymphocytes # 1.1 K/mcL (0.6-4.6); Lymphocytes % 13.8 %; Mean Corpuscular HGB Conc 31.9 g/dL (31.6-35.5); Mean Corpuscular Hemoglobin 29.3 pg (28.0-33.3); Mean Corpuscular Volume 91.7 fL (83.0-100.0); Mean Platelet Volume 11.1 fL (9.4-12.4); Monocytes # 0.6 K/mcL (0.0-1.3); Monocytes % 7.9 %; Platelet Count 295 K/mcL (140-400); Red Blood Count 3.86 M/mcL (3.82-4.97); Red Cell Distribution Width 15.3 % (11.5-14.5); Segmented Neutrophils % 73.9 %; White Blood Count 8.1 K/mcL (4.3-11.1)
[2019-09-05] MEDS: Insulin DETEMIR 100 UNIT/ML X5UNITS SQ SCH ×2 (08:24→22:06)
[2019-09-05] MEDS: Insulin LISPRO 300 UNITS/3 ML VIAL SQ SCH ×4 (08:25→22:07)
[2019-09-05] MEDS: BuPROPion SR (12 HR) 150 MG TABLET PO SCH (08:26)
[2019-09-05] MEDS: Lactobacillus 1 EACH CAP.SPRINK PO SCH ×2 (08:26→22:05)
[2019-09-05] MEDS: *HR* Metformin 500 MG TABLET PO SCH ×2 (08:26→17:25)
[2019-09-05] MEDS: Bumetanide 1 MG TABLET PO SCH ×2 (08:26→14:28)
[2019-09-05] MEDS: Cyanocobalamin (B-12) 1,000 MCG TABLET PO SCH (08:26)
[2019-09-05] MEDS: FLUoxetine 20 MG CAPSULE PO SCH (08:27)
[2019-09-05] MEDS: Nystatin POWDER 30 GM BOTTLE TP SCH ×2 (08:27→22:07)
[2019-09-05] MEDS: Magnesium Oxide 400 MG TABLET PO SCH ×2 (08:27→22:05)
[2019-09-05] MEDS: Cholecalciferol (D-3) 1,000 UNIT (25MCG) TABLET PO SCH (08:27)
[2019-09-05] MEDS: Ammonium Lactate 30 APPL/225 GM BOTTLE TP SCH (08:34)
[2019-09-05 08:37] LABS: BUN/Creatinine Ratio 29 (6-26); Blood Urea Nitrogen 22 mg/dL (6-20); Calcium 9.5 mg/dL (8.6-10.3); Carbon Dioxide 33 mEq/L (23-29); Chloride 99 mEq/L (98-107); Glucose 149 mg/dL (70-105); Osmolality,Calculated 292 (280-300); Potassium 4.1 mEq/L (3.5-5.1); Sodium 138 mEq/L (136-145); eGFR For African Americans > 60 (> 60); eGFR For Non-African Americans > 60 (> 60)
[2019-09-05] MEDS: hydrOXYzine pamoate 25 MG CAPSULE PO PRN ×2 (09:54→22:54)
[2019-09-05] MEDS: Methocarbamol 500 MG TABLET PO SCH (22:05)
[2019-09-05] MEDS: Melatonin 3 MG TABLET PO SCH (22:05)
[2019-09-05] MEDS: *HR* Rivaroxaban 10 MG TABLET PO SCH (22:05)
[2019-09-06] MEDS: MetroNIDAZOLE 500 MG/100 ML 500 MG/100 ML BAG IVPB SCH ×3 (03:07→21:07)
[2019-09-06] MEDS: *HR* OxyCODONE Immed Rel 5 MG TABLET PO PRN ×5 (03:16→21:07)
[2019-09-06] MEDS: Ascorbic Acid 500 MG TABLET PO SCH (06:27)
[2019-09-06] MEDS: Insulin LISPRO 300 UNITS/3 ML VIAL SQ SCH ×4 (07:21→21:11)
[2019-09-06] MEDS: Bumetanide 1 MG TABLET PO SCH ×2 (08:49→14:56)
[2019-09-06] MEDS: *HR* Metformin 500 MG TABLET PO SCH ×2 (08:50→17:25)
[2019-09-06] MEDS: Insulin DETEMIR 100 UNIT/ML X5UNITS SQ SCH ×2 (08:50→21:11)
[2019-09-06] MEDS: FLUoxetine 20 MG CAPSULE PO SCH (08:50)
[2019-09-06] MEDS: Lactobacillus 1 EACH CAP.SPRINK PO SCH ×2 (08:50→21:08)
[2019-09-06] MEDS: Cholecalciferol (D-3) 1,000 UNIT (25MCG) TABLET PO SCH (08:50)
[2019-09-06] MEDS: BuPROPion SR (12 HR) 150 MG TABLET PO SCH (08:50)
[2019-09-06] MEDS: Magnesium Oxide 400 MG TABLET PO SCH ×2 (08:51→21:07)
[2019-09-06] MEDS: Cyanocobalamin (B-12) 1,000 MCG TABLET PO SCH (08:51)
[2019-09-06] MEDS: Ammonium Lactate 30 APPL/225 GM BOTTLE TP SCH (10:20)
[2019-09-06] MEDS: Nystatin POWDER 30 GM BOTTLE TP SCH ×2 (10:20→21:12)
[2019-09-06] MEDS: Melatonin 3 MG TABLET PO SCH (21:07)
[2019-09-06] MEDS: Methocarbamol 500 MG TABLET PO SCH (21:08)
[2019-09-06] MEDS: hydrOXYzine pamoate 25 MG CAPSULE PO PRN (21:08)
[2019-09-06] MEDS: *HR* Rivaroxaban 10 MG TABLET PO SCH (21:08)
[2019-09-07] MEDS: *HR* OxyCODONE Immed Rel 5 MG TABLET PO PRN ×5 (05:09→23:40)
[2019-09-07] MEDS: MetroNIDAZOLE 500 MG/100 ML 500 MG/100 ML BAG IVPB SCH ×3 (05:10→19:48)
[2019-09-07] MEDS: Ascorbic Acid 500 MG TABLET PO SCH (05:10)
[2019-09-07] MEDS: Insulin LISPRO 300 UNITS/3 ML VIAL SQ SCH ×4 (09:29→21:56)
[2019-09-07] MEDS: Cyanocobalamin (B-12) 1,000 MCG TABLET PO SCH (09:30)
[2019-09-07] MEDS: Bumetanide 1 MG TABLET PO SCH ×2 (09:30→14:28)
[2019-09-07] MEDS: BuPROPion SR (12 HR) 150 MG TABLET PO SCH (09:30)
[2019-09-07] MEDS: Insulin DETEMIR 100 UNIT/ML X5UNITS SQ SCH ×2 (09:30→21:56)
[2019-09-07] MEDS: Cholecalciferol (D-3) 1,000 UNIT (25MCG) TABLET PO SCH (09:30)
[2019-09-07] MEDS: Lactobacillus 1 EACH CAP.SPRINK PO SCH ×2 (09:31→21:55)
[2019-09-07] MEDS: Ammonium Lactate 30 APPL/225 GM BOTTLE TP SCH (09:31)
[2019-09-07] MEDS: FLUoxetine 20 MG CAPSULE PO SCH (09:31)
[2019-09-07] MEDS: Magnesium Oxide 400 MG TABLET PO SCH ×2 (09:31→21:56)
[2019-09-07] MEDS: *HR* Metformin 500 MG TABLET PO SCH ×2 (09:31→16:26)
[2019-09-07] MEDS: Nystatin POWDER 30 GM BOTTLE TP SCH ×2 (09:31→21:56)
[2019-09-07] MEDS: Dulaglutide [Trulicity] 1.5 MG SQ SCH (09:31)
[2019-09-07 17:51] LABS: Basophils # 0.1 K/mcL (0.0-0.2); Basophils % 0.8 %; Eosinophils # 0.3 K/mcL (0.0-0.6); Eosinophils % 2.5 %; Hematocrit 36.4 % (35.3-44.9); Hemoglobin 11.8 g/dL (11.5-15.4); Immature Granulocytes % 0.4 % (0-4); Lymphocytes # 1.4 K/mcL (0.6-4.6); Lymphocytes % 12.7 %; Mean Corpuscular HGB Conc 32.4 g/dL (31.6-35.5); Mean Corpuscular Hemoglobin 29.9 pg (28.0-33.3); Mean Corpuscular Volume 92.4 fL (83.0-100.0); Mean Platelet Volume 11.7 fL (9.4-12.4); Monocytes # 0.9 K/mcL (0.0-1.3); Neutrophils # 8.5 K/mcL (1.6-8.9); Platelet Count 295 K/mcL (140-400); Red Blood Count 3.94 M/mcL (3.82-4.97); Red Cell Distribution Width 15.2 % (11.5-14.5); Segmented Neutrophils % 75.6 %; White Blood Count 11.2 K/mcL (4.3-11.1)
[2019-09-07 18:04] LABS: BUN/Creatinine Ratio 29 (6-26); Blood Urea Nitrogen 25 mg/dL (6-20); Calcium 9.5 mg/dL (8.6-10.3); Carbon Dioxide 32 mEq/L (23-29); Chloride 98 mEq/L (98-107); Glucose 93 mg/dL (70-105); Osmolality,Calculated 292 (280-300); Potassium 3.8 mEq/L (3.5-5.1); Sodium 139 mEq/L (136-145); eGFR For African Americans > 60 (> 60); eGFR For Non-African Americans > 60 (> 60)
[2019-09-07] MEDS: *HR* Rivaroxaban 10 MG TABLET PO SCH (21:55)
[2019-09-07] MEDS: Melatonin 3 MG TABLET PO SCH (21:56)
[2019-09-07] MEDS: Methocarbamol 500 MG TABLET PO SCH (21:56)
[2019-09-07] MEDS: Oxymetazoline Nasal SPRAY BOTTLE NS PRN (21:57)
[2019-09-07] MEDS: hydrOXYzine pamoate 25 MG CAPSULE PO PRN (21:59)
[2019-09-08] MEDS: MetroNIDAZOLE 500 MG/100 ML 500 MG/100 ML BAG IVPB SCH (03:49)
[2019-09-08] MEDS: Ascorbic Acid 500 MG TABLET PO SCH (07:03)
[2019-09-08] MEDS: *HR* OxyCODONE Immed Rel 5 MG TABLET PO PRN ×2 (07:03→13:32)
[2019-09-08] MEDS: *HR* Metformin 500 MG TABLET PO SCH (08:05)
[2019-09-08] MEDS: Cholecalciferol (D-3) 1,000 UNIT (25MCG) TABLET PO SCH (08:05)
[2019-09-08] MEDS: FLUoxetine 20 MG CAPSULE PO SCH (08:05)
[2019-09-08] MEDS: Bumetanide 1 MG TABLET PO SCH (08:05)
[2019-09-08] MEDS: Cyanocobalamin (B-12) 1,000 MCG TABLET PO SCH (08:06)
[2019-09-08] MEDS: Insulin LISPRO 300 UNITS/3 ML VIAL SQ SCH (08:06)
[2019-09-08] MEDS: BuPROPion SR (12 HR) 150 MG TABLET PO SCH (08:06)
[2019-09-08] MEDS: Magnesium Oxide 400 MG TABLET PO SCH (08:06)
[2019-09-08] MEDS: Lactobacillus 1 EACH CAP.SPRINK PO SCH (08:06)
[2019-09-08] MEDS: Ammonium Lactate 30 APPL/225 GM BOTTLE TP SCH (08:07)
[2019-09-08] MEDS: Nystatin POWDER 30 GM BOTTLE TP SCH (08:07)
[2019-09-08 08:10] VITALS: BP 127/71
[2019-09-08] MEDS: Insulin DETEMIR 100 UNIT/ML X5UNITS SQ SCH (08:11)
[2019-09-08] MEDS ORDERED: *HR* OxyCODONE Immed Rel 5 MG TABLET PO PRN (14:30)
[2019-09-08] MEDS ORDERED: Aminoglycoside Consult 1 EACH MC ONE (14:59)
[2019-09-09] MEDS ORDERED: levoFLOXacin 250 MG TABLET PO SCH (09:00)
== END 2019-09-08 15:00 | disposition home health service (06) | DRG 560 ==
LOC: INPPIK 18:57
PROVIDERS: ADMIT Internal Medicine; ATTEND Family Medicine